=== PATIENT | female | born 1955 | race Caucasian/White ===

== ENCOUNTER 2018-03-07 00:47 | Emergency (ER) | payer OTHER ==
[~2018-03-07] VITALS: Ht 167.6 cm; Wt 95.3 kg
[~2018-03-07 00:47] MED LIST: ATOR10TA PO; AZIL1TAB PO; AZIL1TAB2 PO; CIPR500T86 PO; GABA300C10 PO; GLIM2TAB2 PO; INSU100I13 SQ; METF500T27 PO; MORP15TA3 PO; MULT-632 PO; NAPR-636 PO; NPH,100V5 SQ; SERT50TA PO; TRAM50TA PO
[2018-03-07 00:58] VITALS: BP 124/51
--- NOTE | 2018-03-07 01:05 | ER.PDOC ---
General Chief Complaint: Trauma Stated Complaint: FALL/ETOH Time seen by MD: 01:02 Source: patient, EMS Exam Limitations: clinical condition History of Present Illness Initial Comments Fell and hit head and left knee. Intoxicated with alcohol. Patient told me she drank only 6 beers. Occurred: just prior to arrival Where: home Severity: moderate Injuries/Pain Location: head Context: Tripped Loss of Consciousness: No Loss of Consciousness Associated Symptoms: denies symptoms Allergies: Coded Allergies: codeine (Verified Allergy, Severe, Rash,Itching, Skin Bubbles up and peals off, 07/09/16) MEDS Reported Medications Naproxen (NAPROXEN) 500 Mg Tablet, 0.5 TAB PO BID, #60 TAB 1 Refill 07/10/16 Azilsartan Med/Chlorthalidone (EDARBYCLOR 40-25 MG TABLET) 1 Each Tablet, 1 EACH PO DAILY, TABLET 07/10/16 Gabapentin (GABAPENTIN) 300 Mg Capsule, 1 CAP PO TID, #90 CAP 5 Refills 07/10/16 Morphine Sulfate (MORPHINE SULFATE ER) 15 Mg Tablet.er, 1 TAB PO BID, #60 TAB 07/09/16 Glimepiride (GLIMEPIRIDE) 2 Mg Tablet, 1 TAB PO BID, #30 TAB 5 Refills 02/19/16 Azilsartan Med/Chlorthalidone (EDARBYCLOR 40-12.5 MG TABLET) 1 Each Tablet, 1 EACH PO DAILY, TABLET 02/19/16 Sertraline Hcl (ZOLOFT) 50 Mg Tablet, 1 TAB PO DAILY, #30 TAB 2 Refills 12/17/15 Multivitamin (Multi Vitamin Daily) 1 Each Tablet, 1 EACH PO DAILY, TABLET 12/17/15 Insulin Glargine,Hum.rec.anlog (LANTUS SOLOSTAR) 100 Unit/1 Ml Insuln.pen, 25 UNIT SQ ACB 12/16/15 Past Medical History Medical History: diabetes, high cholesterol, hypertension, other Surgical History: stent, other LMP (females 10-50): postmenopause Social History Smoking: cigarettes, less than 1 pack/day Alcohol Use: occassionally Drug Use: none Review of Systems Constitutional: no symptoms reported Eyes: no symptoms reported Respiratory: no symptoms reported Cardiovascular: no symptoms reported Gastrointestinal: no symptoms reported Musculoskeletal: see HPI All Other Systems: Reviewed and Negative Physical Exam General Appearance: No Apparent Distress, WD/WN, Other (intoxicated with alcohol) Head: No Evidence of Injury Eyes: bilateral eye normal inspection Neck: Non-Tender, Normal Alignment, Nexus criteria neg, Normal Inspection Cardiovascular/Respiratory: Regular Rate, Rhythm, No M/R/G, Normal Peripheral Pulses, No JVD, Normal Breath Sounds, No Respiratory Distress Gastrointestinal: Normal Bowel Sounds, No Organomegaly, No Pulsatile Mass, Non Tender, Soft Back: Normal Inspection, No CVA Tenderness, No Vertebral Tenderness Extremities: Pain With Movement (left knee and swelling left foot) 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 Brice Coma Score Best Eye Response: (4) Open Spontaneously Best Verbal Response: (5) Oriented Best Motor Response: (6) Obeys Commands EKG/XRAY/CT/US XRAY Comments: Normal left knee and foot CT Comments: Normal CT head Departure Time of Disposition: 02:05 Disposition: 01 HOME, SELF-CARE Impression: Primary Impression: Contusion of head Qualified Codes: S00.93XA - Contusion of unspecified part of head, initial encounter Additional Impressions: Contusion, knee Qualified Codes: S80.02XA - Contusion of left knee, initial encounter Contusion, foot Qualified Codes: S90.32XA - Contusion of left foot, initial encounter Alcohol abuse Condition: Stable Referrals: MARIANA HANNA MD (PCP) PRIMARY CARE PROVIDER Additional Instructions: Ibuprofen F/U with your PCP in 2-3 days F/U with substance abuse program Duration or Time Spent with Pa: 60 mins JAYLEN MIJARES MD Mar 07, 2018 01:05
--- NOTE | 2018-03-07 01:17 | NUR ---
RAD PT TO RAD WITH JESSICA FOR CT, XRAY AT THIS TIME.
--- NOTE | 2018-03-07 01:43 | NUR ---
ROOM PT BACK TO ROOM AT THIS TIME.
[2018-03-07 01:46] VITALS: BP 145/79
--- NOTE | 2018-03-07 01:47 | NUR ---
BLANKET PT PROVIDED WARM BLANKET AT THIS TIME. PT RESTING ON LEFT LATERAL SIDE. PT STATES NO OTHER NEEDS OR CONCERNS AT THIS TIME.
--- NOTE | 2018-03-07 01:52 | DIREP ---
PROCEDURE:XRAY FOOT MIN 3 VWS-LT COMPARISON:None. INDICATIONS:Pain from falling FINDINGS: BONES:Normal. JOINTS:Normal. SOFT TISSUES:Normal, except for dorsal soft tissue swelling. OTHER:No additional findings. CONCLUSION:No fracture or subluxation. Dictated by: Carrington Rodriguez M.D. on 03/07/2018 at 01:50 AM
--- NOTE | 2018-03-07 01:53 | DIREP ---
PROCEDURE:XRAY KNEE 2 VWS-LT COMPARISON:None. INDICATIONS:Pain from falling FINDINGS: BONES:Normal. JOINTS:Normal. SOFT TISSUES:Normal. OTHER:No additional findings. CONCLUSION:Normal examination. Dictated by: Carrington Rodriguez M.D. on 03/07/2018 at 01:51 AM
--- NOTE | 2018-03-07 01:55 | DIREP ---
PROCEDURE:CT HEAD OR BRAIN W/O CONTRAST COMPARISON:[facility], CT, CT HEAD BRAIN W/O CONTRAST, 11/10/2015, 06:54 PM. INDICATIONS:Pain from falling TECHNIQUE:CT images were created without intravenous contrast. FINDINGS: VENTRICLES:The ventricles are normal in size and configuration. CEREBRUM:Normal cerebral morphology with appropriate mukherjee white matter differentiation, except for remote left frontal periventricular infarct/gliosis. CEREBELLUM:Negative. BRAINSTEM:Negative. BASAL CISTERNS:Negative. HEMORRHAGE:No MASS LESION:No ACUTE INFARCT:No SKULL:Normal, except for left frontal bob hole. SINUSES:Normal. OTHER:None. CONCLUSION:Chronic/postsurgical changes. Otherwise, negative head CT. No change. Dictated by: Carrington Rodriguez M.D. on 03/07/2018 at 01:52 AM
[2018-03-07 02:53] VITALS: BP 145/79
== END 2018-03-07 02:17 | disposition home or self-care (01) ==
LOC: EDBD 00:47 → ER 00:47
DX: S00.93XA Contusion of unspecified part of head, initial encounter (principal); S80.02XA Contusion of left knee, initial encounter; S90.32XA Contusion of left foot, initial encounter; F10.129 Alcohol abuse with intoxication, unspecified; E11.9 Type 2 diabetes mellitus without complications; E78.00 Pure hypercholesterolemia, unspecified; I10 Essential (primary) hypertension; F17.210 Nicotine dependence, cigarettes, uncomplicated; Z79.4 Long term (current) use of insulin; Z79.891 Long term (current) use of opiate analgesic; Z79.899 Other long term (current) drug therapy; Z88.5 Allergy status to narcotic agent; W01.0XXA Fall on same level from slipping, tripping and stumbling without subsequent striking against object, initial encounter; Y93.01 Activity, walking, marching and hiking; Y92.098 Other place in other non-institutional residence as the place of occurrence of the external cause; Y99.8 Other external cause status
CPT/HCPCS: 70450; 99285; 73560-LT; 73630-LT

== ENCOUNTER → 2018-12-08 | Outpatient (CLI) | payer OTHER ==
[2018-12-08 12:21] LABS: BASOPHIL % 0.6 % (0.0-0.2); EOSINOPHIL # 0.2 10^3/uL (0.0-0.2); EOSINOPHIL % 2.6 % (0.0-5.0); HEMOGLOBIN 12.7 g/dL (12.0-15.0); LYMPHOCYTES # 1.4 10^3/uL (1.0-4.8); LYMPHOCYTES % 20.8 % (24.0-44.0); MEAN CELL HGB 31.6 pg (26-34); MEAN CELL HGB CONCENTRATION 33.5 g/dL (33-37); MEAN CORP VOLUME 94.3 fL (78-100); MEAN PLATELET VOLUME 8.7 fL (7.8-11.0); MONOCYTES # 0.6 10^3/uL (0.3-0.8); MONOCYTES % 8.9 % (5.0-12.0); NEUTROPHIL # 4.4 10^3/uL (1.8-7.7); NEUTROPHILS % 66.9 % (41.0-85.0); RED CELL DISTRIBUTION WIDTH 13.8 % (11.5-14.5); WHITE BLOOD CELL 6.6 10^3/uL (4.5-11.0)
[2018-12-08 12:37] LABS: BILIRUBIN,URINE NEGATIVE (NEGATIVE)
[2018-12-08 12:45] LABS: CALCIUM 9.2 mg/dL (8.4-10.5); CARBON DIOXIDE 25.2 mmol/L (20.0-32)
--- NOTE | 2018-12-08 12:54 | PCM.EKG ---
[facility] Test Date: 2018-12-08 Test Time: 12:38:20 Pat Name: RICKIE AMAYA Department: Room: Gender: F Strategic Marketing Specialist: MARYLOU : 1955 Requested By: MARIANA HANNA Order Number: [id number] Reading MD: Bk Almaguer Measurements Intervals Mcgill Rate: 62 P: 63 KS: 190 QRS: 70 QRSD: 78 T: 61 QT: 418 QTc: 424 Interpretive Statements Normal sinus rhythm Normal ECG No previous ECG available for comparison Electronically Signed On 12-09-2018 10:02:32 CDT by Bk Almaguer Please click the below link to view image of tracing.
[2018-12-08 12:58] LABS: APPEARANCE,URINE SLIGHTLY CLOUDY (CLEAR); UA COLOR YELLOW (YELLOW)
== END | disposition home or self-care (01) ==
LOC: LAB 11:53
PROVIDERS: ATTEND Internal Medicine
DX: M54.5 Low back pain (principal); E87.1 Hypo-osmolality and hyponatremia; E11.42 Type 2 diabetes mellitus with diabetic polyneuropathy; I10 Essential (primary) hypertension; J44.9 Chronic obstructive pulmonary disease, unspecified; Z79.899 Other long term (current) drug therapy; I35.0 Nonrheumatic aortic (valve) stenosis
CPT/HCPCS: 36415; 80053; 80061; 83036; 85025; 85651; 86140; 87086; 93005

== ENCOUNTER → 2019-01-05 | Outpatient (CLI) | payer OTHER ==
[~2019-01-05] MED LIST changes: +MORP-23 PO; -MORP15TA3 PO
[2019-01-05 13:22] LABS: BILIRUBIN,URINE NEGATIVE (NEGATIVE); UROBILINOGEN,URINE NORMAL (NEGATIVE)
[2019-01-05 13:29] LABS: APPEARANCE,URINE CLEAR (CLEAR); UA COLOR YELLOW (YELLOW)
== END | disposition home or self-care (01) ==
LOC: LAB 12:54
PROVIDERS: ATTEND Internal Medicine
DX: I11.0 Hypertensive heart disease with heart failure (principal); I50.9 Heart failure, unspecified; M19.90 Unspecified osteoarthritis, unspecified site; M32.9 Systemic lupus erythematosus, unspecified; R80.1 Persistent proteinuria, unspecified
CPT/HCPCS: 81000; 82043; 82570; 87086

== ENCOUNTER → 2019-03-05 | Outpatient (CLI) | payer OTHER ==
[~2019-03-05] MED LIST changes: -GLIM2TAB2 PO; +GLIM2TAB3 PO
[2019-03-05 14:05] LABS: CALCIUM 9.4 mg/dL (8.4-10.5); CARBON DIOXIDE 28.6 mmol/L (20.0-32)
== END | disposition home or self-care (01) ==
LOC: LAB 13:34
PROVIDERS: ATTEND Internal Medicine Cardiovascular Disease
DX: I70.213 Atherosclerosis of native arteries of extremities with intermittent claudication, bilateral legs (principal)
CPT/HCPCS: 36415; 80048

== ENCOUNTER 2020-01-31 08:23 | Inpatient (IN) | payer OTHER, SELFPAY ==
[2020-01-31] VITALS (37 sets, daily range): BP systolic 71–154; BP diastolic 25–86
[~2020-01-31] VITALS: Ht 167.6 cm; Wt 105.2 kg
[~2020-01-31 08:23] MED LIST changes: -GLIM2TAB3 PO; +GLIM2TAB7 PO
--- NOTE | 2020-01-31 08:46 | PCM.EKG ---
[facility] Test Date: 2020-01-31 Test Time: 08:42:29 Pat Name: RICKIE AMAYA Department: Room: Gender: F Signal Maintainer Helper: DENIA : 1955 Requested By: LINUS POSADA Order Number: [id number] Reading MD: Linus Posada Measurements Intervals [place] Rate: 55 P: 70 MI: 241 QRS: 69 QRSD: 85 T: 73 QT: 506 QTc: 484 Interpretive Statements Sinus rhythm Prolonged MI interval Probable left atrial enlargement Probable left ventricular hypertrophy Compared to ECG 12/08/2018 12:38:20 First degree AV block now present minimal st depression v3 to v6 1mm or less previous ekg shows 0.5mm or less from 12-09-18 at 1002 Electronically Signed On 01-31-2020 8:55:49 CDT by Linus Posada Please click the below link to view image of tracing.
--- NOTE | 2020-01-31 08:48 | ER.PDOC ---
General Chief Complaint: Requesting Medical Care Stated Complaint: DYSPNEA Time seen by MD: 08:30 Source: patient History of Present Illness Initial Comments one day of cough and dyspnea with hx of copd, wheezing at home no chest pain. no swelling in legs or calf pain no hx of dvt or pe, no cad per patient. no fever or runny nose pt not on oxygen at home has no pulmonary doctor. ems notified gave solumedrol and duo neb, patient still higinio. Severity: moderate Activities at Onset: none Prior Episodes/Possible Cause: frequent episodes Modifying Factors: improves with albuterol inhaler, improves with albuterol nebulizer Allergies: Coded Allergies: codeine (Verified Allergy, Severe, Rash,Itching, Skin Bubbles up and peals off, 07/09/16) Home Meds Reported Medications Nifedipine (NIFEDIPINE ER) 60 Mg Tablet.er, 90 MG PO DAILY24 01/31/20 Potassium Chloride (Potassium Chloride) 20 Meq Tablet.er, 10 MEQ PO DAILY24 01/31/20 Insulin Aspart (Insulin Aspart) 100 Unit/Ml Vial, 0 SQ ACHS for PER SLIDING SCALE for 30 Days, #30 01/31/20 Gabapentin (GABAPENTIN) 100 Mg Capsule, 1 CAP PO TID, #90 CAP 2 Refills 01/31/20 Isosorb Dinit/Hydralazine Hcl (BIDIL TABLET) 1 Each Tablet, 1 EACH PO DAILY24, TAB 01/31/20 Budesonide/Formoterol Fumarate (SYMBICORT 160-4.5 MCG INHALER) 10.2 Gm Hfa.aer.ad, 2 PUFF IH BID, #10.6 GRAM 3 Refills 01/31/20 Tizanidine Hcl (ZANAFLEX) 2 Mg Capsule, 1 CAP PO HS for 30 Days, #30 CAP 0 Refills 01/31/20 Clopidogrel Bisulfate (CLOPIDOGREL) 75 Mg Tablet, 1 TAB PO DAILY, #90 TAB 1 Refill 01/31/20 Lisinopril (LISINOPRIL) 2.5 Mg Tablet, 1 TAB PO DAILY, #30 TAB 5 Refills 01/31/20 Atorvastatin 40MG (LIPITOR 40MG) 40 Mg Tablet, 1 TAB PO HS, #90 TAB 1 Refill 01/31/20 Amitriptyline Hcl (AMITRIPTYLINE HCL) 50 Mg Tablet, 1 TAB PO HS, #30 TAB 1 Refill 01/31/20 Gabapentin (GABAPENTIN) 300 Mg Capsule, 1 CAP PO TID, #90 CAP 5 Refills 07/10/16 Morphine Sulfate (MORPHINE SULFATE ER) 15 Mg Tablet.er, 1 TAB PO BID, #60 TAB 07/09/16 Sertraline Hcl (ZOLOFT) 50 Mg Tablet, 1 TAB PO DAILY, #30 TAB 2 Refills 12/17/15 Multivitamin (Multi Vitamin Daily) 1 Each Tablet, 1 EACH PO DAILY, TABLET 12/17/15 Insulin Glargine,Hum.rec.anlog (LANTUS SOLOSTAR) 100 Unit/1 Ml Insuln.pen, 25 UNIT SQ ACB 12/16/15 Discontinued Reported Medications Naproxen (NAPROXEN) 500 Mg Tablet, 0.5 TAB PO BID, #60 TAB 1 Refill 07/10/16 Azilsartan Med/Chlorthalidone (EDARBYCLOR 40-25 MG TABLET) 1 Each Tablet, 1 EACH PO DAILY, TABLET 07/10/16 Glimepiride (GLIMEPIRIDE) 2 Mg Tablet, 1 TAB PO BID, #30 TAB 5 Refills 02/19/16 Azilsartan Med/Chlorthalidone (EDARBYCLOR 40-12.5 MG TABLET) 1 Each Tablet, 1 EACH PO DAILY, TABLET 02/19/16 Past Medical History Medical History: COPD, diabetes ( ) Surgical History: stent, other Social History Drug Use: none Review of Systems Constitutional: denies chills, denies fever EENTM: denies ear discharge, denies nose congestion Respiratory: cough, shortness of breath Cardiovascular: denies chest pain, denies palpitations, denies syncope Gastrointestinal: denies diarrhea, denies vomiting Genitourinary: denies pain Musculoskeletal: denies back pain Skin: denies rash Psychiatric/Neurological: denies headache Physical Exam General Appearance: No Apparent Distress, WD/WN HEENT: PERRL/EOMI, Normal ENT Inspection Neck: Non-Tender, Full Range of Motion Respiratory: chest non-tender, respiratory distress, wheezing Cardiovascular: Normal Peripheral Pulses, Regular Rate, Rhythm Gastrointestinal: Non Tender Extremities: Normal Range of Motion, Normal Inspection, No Pedal Edema 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 (01/31/20 08:41) Blood Culture (01/31/20 08:41) Sputum Culture & Gram Stain (01/31/20 08:41) Ekg-Routine (01/31/20 08:41) Xr Chest 1v (01/31/20 08:41) Rt O2 Per Hour (01/31/20 08:41) Creatine Kinase (01/31/20 08:41) Creatine Kinase Mb (01/31/20 08:41) Troponin I (01/31/20 08:41) Helicobacter Pylori (01/31/20 08:41) D-Dimer (01/31/20 08:41) Albuterol Sulfate (Ventolin Hfa) (01/31/20 09:00) Influenza A&B (01/31/20 08:41) Novel Coronavirus 2019(Dshs) (01/31/20 08:41) Acetone,Serum (Ml) (01/31/20 08:48) Lactic Acid(Ml) (01/31/20 08:48) 0.9 % Sodium Chloride (Ns 1000ml) (01/31/20 09:00) Insulin Regular, Human (Humulin R) (01/31/20 09:00) Aspirin (Aspirin) (01/31/20 08:56) Nitroglycerin (Nitro-Bid) (01/31/20 09:36) Enoxaparin Sodium (Lovenox) (01/31/20 21:00) Enoxaparin Sodium (Lovenox) (01/31/20 09:51) Admit Orders (01/31/20 10:06) Azithromycin (Zithromax) (01/31/20 10:30) Furosemide (Lasix) (01/31/20 10:06) 0.9 % Sodium Chloride (Ns 250ml) (01/31/20 10:27) Vital Signs Date Time Temp Pulse Resp B/P (MAP) Pulse Ox O2 Delivery O2 Flow Rate FiO2 01/31/20 10:40 58 20 145/58 (87) 90 Comfort Flow 01/31/20 10:00 98 20 91 Comfort Best 30.00 55 01/31/20 09:28 58 21 87 01/31/20 09:25 21 87 01/31/20 09:23 58 24 125/53 (77) 87 Nasal Canula 4.00 01/31/20 08:36 98.3 60 26 137/51 (79) 86 Nasal Canula 4.00 01/31/20 08:36 98.3 60 26 01/31/20 08:36 98.3 60 26 86 Administered Medications Medications (Trade) Dose Ordered Sig/Presley Route PRN Reason Start Time Stop Time Status Last Admin Dose Admin Albuterol Sulfate (Ventolin Hfa) 2 inh OT ONCE IH 01/31/20 09:00 01/31/20 12:21 DC 01/31/20 09:21 2 INH Aspirin (Aspirin) 325 mg STAT STAT PO 01/31/20 08:56 01/31/20 12:19 DC 01/31/20 09:20 325 MG Azithromycin 500 mg/Sodium Chloride 250 ml @ 175 mls/hr STAT ONCE IV 01/31/20 10:30 01/31/20 12:19 DC 01/31/20 10:40 175 MLS/HR Furosemide (Lasix) 40 mg STAT STAT IV 01/31/20 10:06 01/31/20 12:19 DC 01/31/20 12:30 40 MG Insulin Human Regular (Humulin R) 10 unit OT ONCE IV 01/31/20 09:00 01/31/20 09:01 DC 01/31/20 09:20 10 UNIT Nitroglycerin (Nitro-Bid) 1 gm STAT STAT TD 01/31/20 09:36 01/31/20 12:19 DC 01/31/20 09:56 1 GM Sodium Chloride 2,994 ml @ 1,497 mls/hr OT IV 01/31/20 09:00 01/31/20 15:42 DC 01/31/20 09:21 1,497 MLS/HR Laboratory Tests Test 01/31/20 08:41 01/31/20 09:06 01/31/20 09:21 01/31/20 09:46 Blood Gas Sample Site RB Blood pH 7.422 (7.350-7.450) Blood Gas PCO2 26.6 mmHg (35.0-45.0) L Blood Gas PO2 69.8 mmHg (80.0-100.0) L Blood Gas HCO3 16.9 mmol/L (22.0-26.0) L Blood Gas Base Excess -5.9 mmol/L (-2.0-2.0) L Bk Test N/A Arterial Blood Oxygen Saturation 93.6 % (94.0-97.00) L Deoxyhemoglobin 6.2 % (0.0-5.0) H Carboxyhemoglobin 2.4 % (0.0-3.9) Methemoglobin 0.1 % (0.00-5.0) Total Hemoglobin 13.5 % (12.0-17.8) Total Oxygen Concentration 17.4 % (13.5-17.5) Blood Gas Temperature 37 FiO2 40 % (20-101) Total Carbon Dioxide 17.8 mmol/L (23-27) L White Blood Count 14.8 10^3/uL (4.5-11.0) H Red Blood Count 4.31 10^6/uL (4.00-5.20) Hemoglobin 13.2 g/dL (12.0-15.0) Hematocrit 39.2 % (36.0-46.0) Mean Corpuscular Volume 91.0 fL (78-100) Mean Corpuscular Hemoglobin 30.6 pg (26-34) Mean Corpuscular Hemoglobin Concent 33.7 g/dL (33-36.5) Red Cell Distribution Width 14.1 % (11.5-14.5) Platelet Count 286 10^3/uL (150-400) Mean Platelet Volume 10.3 fL (7.8-11.0) Neutrophils (%) (Auto) 88.5 % (41.0-85.0) H Lymphocytes (%) (Auto) 6.4 % (24.0-44.0) *L Monocytes (%) (Auto) 4.5 % (5.0-12.0) L Neutrophils # (Auto) 13.1 10^3/uL (1.8-7.7) H Lymphocytes # (Auto) 0.95 10^3/uL1 (1.0-4.8) L Monocytes # (Auto) 0.7 10^3/uL (0.3-0.8) Absolute Immature Granulocyte (auto 0.05 10^3 u/L (0-2) Absolute Eosinophils (auto) 0.0 10^3/uL (0.0-0.2) Immature Granulocytes % 0.30 % (0.00-0.50) Eosinophils % 0.1 % (0.0-5.0) Basophils % 0.2 % (0.0-0.2) Basophils # 0.0 10^3/uL (0.0-0.1) Prothrombin Time 10.7 SEC (9.3-11.3) Prothrombin Time INR (Non-Therap) 1.1 Activated Partial Thromboplast Time 22.7 SEC (24.67-30.72) D-Dimer 0.45 mg/L (0.19-0.49) Sodium Level 124 mmol/L (132-145) L Potassium Level 4.0 mmol/L (3.6-5.2) Chloride Level 91.0 mmol/L (96-109) L Carbon Dioxide Level 20.3 mmol/L (20.0-32) Anion Gap 16.7 Blood Urea Nitrogen 14 mg/dL (7-18) Creatinine 1.20 mg/dL (0.59-1.40) Estimated GFR () 54.9 (>/=60) Est GFR (CKD-EPI)(Non-Afr Vincentian) 45.4 (>/=60) BUN/Creatinine Ratio 11.0 Glucose Level 511 mg/dL (70-110) *H Lactic Acid Level 2.0 mmol/L (0.5-1.9) H Calcium Level 9.6 mg/dL (8.4-10.5) Total Bilirubin 0.9 mg/dL (0.2-1.0) Aspartate Amino Transferase (AST) 20 U/L (0-35) Alanine Aminotransferase (ALT) 31 U/L (12-78) Alkaline Phosphatase 106 U/L (50-136) Total Creatine Kinase 121 U/L (26-192) Creatine Kinase MB 3.0 ng/mL (0.5-3.6) Troponin I 0.16 ng/mL (0.00-0.05) H Pro-B-Type Natriuretic Peptide 6027 pg/mL (0-125) H Total Protein 7.8 g/dL (6.4-8.2) Albumin 3.3 g/dL (3.4-5.0) L Globulin 4.5 Albumin/Globulin Ratio 0.733 Acetone, Semi-Quantitative NEGATIVE Helicobacter pylori Screen NEGATIVE (NEGATIVE) Influenza Type A Antigen NEGATIVE (NEG) Influenza B Immunofluorescence NEGATIVE (NEG) Differential Total Cells Counted 100 #CELLS Segmented Neutrophils 88 % (31-76) H Band Neutrophils 3 % (2-6) Lymphocytes 8 % (25-36) L Monocytes 1 % (3-9) L Differential Comment NORMAL Platelet Estimate ADEQUATE Platelet Morphology NORMAL Blood Morphology Comment NORMAL MORPHOLOGY Progress Progress patient has minimal st depression lateral leads of v3 to v6 of 1mm or less previous ekg showed 0.5mm or less in similar leads. nitro held secondary to initial bp 109 systolic and no chest pain, ekg is similar to previous possibly not acute no cp. solumedrol give by ems, fluid bolus initially given secondary to hyperglycemia, fluids decreased when chest xray returned possible chf. when patient pressure improved from fluids she was given nitro ointment even though she had no chest discomfort, nitro given secondary to the abnormal ekg. toponin returned mild elevation so patient given lovenox. discussed with dr fernando at [facility] as patient does not wish transfer. discussed case with dr london for admi ssion at [place], dr fernando wanted lasix iv given in er and dr london wanted iv azithromycin given in er. EKG/XRAY/CT/US EKG: NSR ER DEPART Departure Time of Disposition: 10:06 Disposition: 51 DISCH TO HOSPICE MED FACILI Impression: Primary Impression: Chest pain Condition: Improved Referrals: MARIANA HANNA MD (PCP) PRIMARY CARE PROVIDER Duration or Time Spent with Pa: PROSPER REAGAN MD Jan 31, 2020 08:48
[2020-01-31] MEDS ORDERED: HUMULIN R ONE (08:51)
[2020-01-31] MEDS ORDERED: NS 1000ML 1,000 ML ONE ×2 (08:51→21:14)
[2020-01-31] MEDS ORDERED: ASPIRIN PO STA (08:56)
[2020-01-31] MEDS ORDERED: NS IV SCH (09:00)
[2020-01-31] MEDS ORDERED: VENTOLIN HFA IH ONE (09:00)
[2020-01-31] MEDS ORDERED: HUMULIN R IV ONE (09:00)
[2020-01-31 09:10] LABS: ABG PCO2 26.6 mmHg (35.0-45.0); ABG PH 7.422 (7.350-7.450); BE(B) -5.9 mmol/L (-2.0-2.0); HCO3act 16.9 mmol/L (22.0-26.0); pO2 69.8 mmHg (80.0-100.0)
--- NOTE | 2020-01-31 09:25 | NUR ---
COVID TEST PT COVID TESTED THROUGH THE STATE PER DR. WOLF ORDERS. NASOPHARANGYL SWAB COLLECTED AND TAKEN TO THE LAB. VERBAL EDUCATION GIVEN TO PT REGARDING TESTING. PT VERBALIZES UNDERSTANDING, NO FURHTER QUESTIONS AT THIS TIME.
--- NOTE | 2020-01-31 09:26 | DIREP ---
PROCEDURE:CHEST 1 VIEW COMPARISON:[facility], CR, XRAY CHEST 2 VWS, 05/23/2017, 01:43 PM. INDICATIONS:cough and dyspnea FINDINGS: LUNGS/PLEURA:Interstitial prominent both lungs. Tiny amount of fluid in the minor fissure. No consolidation VASCULATURE:Prominent CARDIAC:Interval cardiomegaly MEDIASTINUM:Normal. No visible mass or adenopathy. BONES:Normal. No fracture or visible bony lesion. OTHER:Negative. CONCLUSION:Slight interval cardiomegaly with vascular prominence and scant fluid in the minor fissure could represent incipient CHF. Dictated by: Theresa Patricio MD on 01/31/2020 at 09:14 AM
[2020-01-31] MEDS ORDERED: NITRO-BID TD STA (09:36)
[2020-01-31 09:45] LABS: BASOPHIL % 0.2 % (0.0-0.2); EOSINOPHIL % 0.1 % (0.0-5.0); LYMPHOCYTES # 0.95 10^3/uL1 (1.0-4.8); LYMPHOCYTES % 6.4 % (24.0-44.0); MEAN CORP HGB 30.6 pg (26-34); MONOCYTES # 0.7 10^3/uL (0.3-0.8); MONOCYTES % 4.5 % (5.0-12.0); NEUTROPHIL # 13.1 10^3/uL (1.8-7.7); NEUTROPHILS % 88.5 % (41.0-85.0); PLATELET COUNT 286 10^3/uL (150-400); RED CELL DISTRIBUTION WIDTH 14.1 % (11.5-14.5)
[2020-01-31] MEDS ORDERED: LOVENOX SQ ONE (09:51)
[2020-01-31 09:53] LABS: CALCIUM 9.6 mg/dL (8.4-10.5); CARBON DIOXIDE 20.3 mmol/L (20.0-32)
--- NOTE | 2020-01-31 09:55 | NUR ---
COMFORT FLOW PT PLACED ON COMFORT FLOW BY RT
--- NOTE | 2020-01-31 10:04 | NUR ---
EDDIE DOCTOR DONNIE ON THE PHONE WITH DOCTOR MORGAN AT THIS TIME.
[2020-01-31] MEDS ORDERED: LASIX IV STA (10:06)
[2020-01-31] MEDS ORDERED: NS 250ML 250 ML IV ONE (10:27)
[2020-01-31] MEDS ORDERED: ZITHROMAX 500 MG in NS 250ML 250 ML IV ONE (10:30)
--- NOTE | 2020-01-31 10:35 | NUR ---
ADMIT REQUEST ROOM REQUEST FROM ICU. JERRI RN REPORTED ROOM WOULD BE AVAILABLE IN AN HOUR AFTER THEY MOVE A PATIENT OUT OF THE NEGATIVE PRESSURE ROOM, AND HAVE IT TERMINALY CLEANED.
[2020-01-31] MEDS ORDERED: POTA20TA89 PO (11:03)
[2020-01-31] MEDS ORDERED: CLOP75TA PO (11:03)
[2020-01-31] MEDS ORDERED: LISI2.5T PO (11:03)
[2020-01-31] MEDS ORDERED: INSU100V40 SQ (11:03)
[2020-01-31] MEDS ORDERED: BUDE10.2 IH (11:03)
[2020-01-31] MEDS ORDERED: ISOS1TAB2 PO (11:03)
[2020-01-31] MEDS ORDERED: GABA100C7 PO (11:03)
[2020-01-31] MEDS ORDERED: AMIT50TA PO (11:03)
[2020-01-31] MEDS ORDERED: ATOR40TA PO (11:03)
[2020-01-31] MEDS ORDERED: TIZA2CAP2 PO (11:03)
[2020-01-31] MEDS ORDERED: NIFE60TA15 PO (11:03)
[2020-01-31 11:55] LABS: BAND NEUTROPHILS 3 % (2-6); DIFFERENTIAL COMMENT NORMAL; LYMPHOCYTE 8 % (25-36); MONOCYTE 1 % (3-9); SEGMENTED NEUTROPHILS 88 % (31-76)
[2020-01-31] MEDS ORDERED: LASIX ONE ×2 (12:21→13:21)
--- NOTE | 2020-01-31 12:40 | NUR ---
ADMIT PT ADMITTED TO ICU, REPORT GIVEN TO JERRI STEINER. PT TRANSFERRED ON NC, PUT BACK ON COMFORT FLOW ONCE ARRIVING TO UNIT. PT ALERT, ORIENTED, STABLE. NS@100ML/HR INFUSING TO IV LEFT HAND.
--- NOTE | 2020-01-31 14:15 | NUR ---
HEPARIN HEPARIN WAS STARTED AT THIS TIME.
[2020-01-31] MEDS ORDERED: HEPARIN-D5W 20,000 UNIT/500 ML 500 ML IV ONE (14:16)
[2020-01-31] MEDS ORDERED: HEPARIN ONE (14:17)
--- NOTE | 2020-01-31 14:30 | NUR ---
MEDICATION PATIENT REQUESTING ZOLOFT. SHE TAKES THIS AT HOME. NOTIFIED DR NAYLOR. NO ORDERS RECEIVED. SHE DOES NOT WANT TO CONTINUE THIS UNTIL HER BREATHING IS BETTER
[2020-01-31] MEDS ORDERED: HEPARIN IV ONE (15:00)
--- NOTE | 2020-01-31 15:25 | NUR ---
UPDATE DR NAYLOR GAVE VERBAL ORDERS TO DC LOVENOX. DO NOT CONTINUE NS. FLUID RESTRICTION 1500ML PER DAY. 1800 ADA DIET
[2020-01-31] MEDS: HEPARIN-D5W 20,000 UNIT/500 ML 500 ML IV SCH (15:32)
[2020-01-31] MEDS ORDERED: MORPHINE SULFATE IV PRN (16:00)
[2020-01-31] MEDS ORDERED: ATROVENT IH PRN (16:00)
[2020-01-31] MEDS ORDERED: TYLENOL PO PRN (16:00)
[2020-01-31] MEDS ORDERED: VENTOLIN IH PRN (16:00)
[2020-01-31] MEDS ORDERED: ATROVENT IH SCH (16:00)
[2020-01-31] MEDS ORDERED: ZOFRAN IV PRN (16:00)
[2020-01-31] MEDS: COMBIVENT RESPIMAT 20-100 MCG IH SCH ×2 (17:00→21:00)
[2020-01-31] MEDS ORDERED: VENTOLIN IH SCH (17:00)
[2020-01-31] MEDS ORDERED: COMBIVENT RESPIMAT 20-100 MCG IH PRN (17:00)
--- NOTE | 2020-01-31 17:17 | PCM.HP ---
HISTORY & PHYSICAL HISTORY & PHYSICAL DATE OF ADMISSION: 01/31/20 TIME: 2:30pm CHIEF COMPLAINT: SOB, cough, and wheezing HISTORY OF PRESENT ILLNESS: Ms Haque is a 64yo WF who presents to the [facility] ED complaining of worsening SOB, cough (productive of mostly clear sputum), and wheezing since last evening. Patient denies having any associated fever or chills, and reports no chest pain, palpitations, dizziness, abdominal pain, nausea, vomiting, diarrhea, or syncopal episodes. EMS was called earlier this morning and found patient to be in severe respiratory distress with an O2 sat in the low 80's on Room Air. Currently, patient can only speak a few words at a time before getting extremely dyspneic. She denies having any sick contacts. PAST MEDICAL HISTORY: IDDM-2, HLD, Depression with Anxiety, HTN, Peripheral Neuropathy, Chronic Low Back Pain, COPD, PAD, Arthritis PAST SURGICAL HISTORY: BL LE stents, Tubal Ligation, Brain Surgery SOCIAL HISTORY: Pt has smoked 1ppd for over 30 yrs. She says she quit yesterday. Patient drinks "very rarely" and does not use recreational drugs. FAMILY HISTORY: Mother at age 76 with Breast Cancer and CAD. Father at age 82 with Hypoglycemic Episodes. ALLERGIES: Codeine HOME MEDICATIONS: See Home Med Rec REVIEW OF SYSTEMS: See HPI above. All other ROS negative including constitutional, eyes, ears, nose, throat, respiratory, cardiovascular, gastrointestinal, genitourinary, musculoskeletal, skin, neurological, psychiatric, and lymphatic. PHYSICAL EXAMINATION: VITAL SIGNS: T 98.3, HR 52, RR 22, BP 135/66, O2 sat 91% on Comfort Best GENERAL: Resting comfortably in NAD. She is acutely ill-appearing. No family or friends present at bedside. HEENT: NC/AT. PERRLA. EOMI. MMM. Neck is supple. LUNGS: BL diffuse expiratory wheezes with faint crackles noted. Pt is tachypneic with moderate usage of her accessory muscles of respiration. HEART: Normal S1S2. +2/6 systolic murmur LSB. ABDOMEN: Soft. ND. NTTP. No rebound or guarding. Normal BS throughout. Obese. EXTREMITIES: 1+ pitting edema BL. Weak, but moving all 4 extremities equally and completely off the bed. SKIN: No obvious rashes or cellulitis. NEUROLOGIC: AAOx3. Sensation appears to be intact throughout. Gait was not assessed at this time. LABORATORY DATA: Reviewed and significant for WBC 14.8, D-dimer 0.45, Na 124, Cl 91, Gluc 511, Lact 2.0, TPN 0.16, proBNP 6027, Influenza A/B neg, AB.42 / 26.6 / 69.8 IMAGING STUDIES: 1) CXR: Slight interval cardiomegaly with vascular prominence and scant fluid in the minor fissure could represent incipient CHF. ASSESSMENT / PLAN: 1) Acute Hypoxemic Respiratory Failure: Improving on Comfort Best. Continue supportive care and monitor closely. COVID-19 has been checked and is pending. 2) Acute COPD exacerbation with Active Tobacco Abuse: Continue Br Tx's, O2 PRN, Solumedrol, Mucinex, and Symbicort. Pt has been counseled and encouraged to quit smoking. 3) Possible Early Sepsis: Will start Rocephin and Azithromycin empirically for now until all Cultures result. Will check a CT chest to further evaluate for possible PNA vs CHF. No additional fluids can be given due to #4 below. 4) Acute CHF exacerbation: (New Onset) Echo has been ordered and is pending. Continue Lasix and fluid restriction for now. 5) Elevated TPN: Possibly due to Sepsis vs Respiratory Failure vs NSTEMI. Patient currently denies having any chest pain. Will continue to trend TPN. Dr Cisse was contacted by the ED physician and has kindly seen the patient in consultation. Continue Heparin drip for now. 6) HypoNatremia: Likely due to volume overload. Will fluid restrict and check urine studies to be certain. 7) IDDM-2 uncontrolled: Pt is not in DKA. Continue Lantus and Insulin per Correction Scale PRN. Check HgbA1c. 8) HTN: Currently stable on home meds. 9) Chronic Low Back Pain: Continue Sx pain control PRN. 10) Obesity: Pt has been counseled and encouraged to lead a healthier lifestyle. 11) GI and DVT prophylaxis: Will continue home Protonix and start Heparin. >65min of critical care time was spent with pt at bedside today as well as in coordination of care and admission orders. SERA NAYLOR MD Jan 31, 2020 17:17
--- NOTE | 2020-01-31 17:20 | NUR ---
PATIENT OFF UNIT FOR CHEST CT SCAN WITH CONTRAST
[2020-01-31] MEDS: ROCEPHIN 1,000 MG in NS 100ML 100 ML IV SCH (17:45)
--- NOTE | 2020-01-31 19:00 | NUR ---
RECEIVED PATIENT IN COMFORT FLOW, AFEBRILE, DENIED ANY CONCERN. REPORT FROM Alvarez ACOSTA RN. ONGOING HEPARIN @ 1000 UNITS/HR. CALL LIGHT AND TABLE IN REACH. ASSUMED CARE
[2020-01-31] MEDS: HUMALOG SQ SCH ×2 (19:01→21:11)
--- NOTE | 2020-01-31 19:03 | DIREP ---
PROCEDURE:CT CHEST WITH CONTRAST COMPARISON:[facility], CR, XRAY CHEST SINGLE VW, 01/31/2020, 08:41 AM. INDICATIONS:SOB and cough TECHNIQUE:Helical sections through the chest were performed from the lung apices through the diaphragms with IV contrast. Sagittal and coronal reconstructions are obtained from source images. FINDINGS: LUNGS:There is a 2 cm diameter pleural-based/subpleural soft tissue density or dense infiltrate in the right upper lobe. There may be tiny air-filled cavity in the posterior portion of this soft tissue density. Small area of subpleural infiltrate or scarring in the inferior the lateral aspect of the left lower lobe. Small area of subpleural infiltrate or scarring in medial portion of right lower lobe. New line small areas of bilateral apical pleural thickening. PLEURA:Minimal right pleural effusion. CARDIAC:Normal. No enlargement, pericardial thickening, or significant calcification. MEDIASTINUM:Normal. No mass or adenopathy. AV:Normal. No mass or adenopathy. AORTA:Pulsation artifacts are noted. No aneurysm or dissection in the thoracic aorta. CHEST WALL:Normal. No mass or axillary adenopathy. LIMITED ABDOMEN:Normal. Limited images of the upper abdomen are unremarkable. BONES:Normal. No bony lesion or fracture. OTHER:Negative. CONCLUSION: 1. Small focal infiltrate or mass in the right upper lobe with a tiny cavitation. This is of uncertain etiology may represent unusual presentation of a small localized pneumonia infiltrate. Neoplasm cannot be totally ruled out. There also small subpleural areas of infiltrate or parenchymal scarring in each lower lobe. No typical findings for COVID 19 pneumonia on the present exam. Follow-up noncontrast CT scan of the chest in several days would be quite useful to evaluate for evolution of findings in the lungs. 2. Please see above discussion for details of other findings. Dictated by: Beau Barclay M.D. on 01/31/2020 at 06:47 PM
[2020-01-31] MEDS: BACID PO SCH (19:31)
[2020-01-31] MEDS ORDERED: SOLU-MEDROL ONE (20:23)
[2020-01-31] MEDS ORDERED: LASIX PO SCH (21:00)
[2020-01-31] MEDS ORDERED: LOVENOX SQ SCH (21:00)
[2020-01-31] MEDS: MS CONTIN PO SCH (21:00)
[2020-01-31] MEDS: SYMBICORT 160-4.5 MCG INHALER IH SCH (21:00)
[2020-01-31] MEDS: ELAVIL PO SCH (21:07)
[2020-01-31] MEDS: LIPITOR PO SCH (21:08)
[2020-01-31] MEDS: SOLU-MEDROL IV SCH (21:08)
[2020-01-31] MEDS: MUCINEX PO SCH (21:08)
--- NOTE | 2020-01-31 23:16 | CNH ---
DATE OF CONSULTATION: 01/31/2020 REASON FOR CONSULTATION: Acute decompensated heart failure. HISTORY OF PRESENT ILLNESS: This is a 64-year-old female who presented to the Emergency Room with acute hypoxic respiratory failure. The patient admits to a 1-day history of progressively worsening shortness of breath with wheezing as well as orthopnea and paroxysmal nocturnal dyspnea. She does have a history of COPD. On presentation to the Emergency Department, she was given Solu-Medrol and breathing treatment. She denies any chest pain. ProBNP was noted to be 6027 with mildly elevated troponin at 0.16. She is also noted to have significant hyponatremia as well as significant hyperglycemia with a glucose level of 511 and sodium level of 124. White blood cell count is noted to be significantly elevated at 14.8. A consultation was placed to Cardiology service for evaluation for acute decompensated heart failure. PAST MEDICAL HISTORY: Significant for 1. COPD. 2. Hypertension. 3. Peripheral arterial disease. 4. Hyperlipidemia. 5. Type 2 diabetes mellitus. 6. Peripheral neuropathy. 7. Dysthymic disorder. PAST SURGICAL HISTORY: 1. Brain surgery. 2. Tubal ligation. 3. Bilateral lower extremity peripheral interventions. ALLERGIES: She is allergic to CODEINE. MEDICATIONS: She takes at home includes 1. Nifedipine 60 mg daily. 2. Potassium chloride. 3. Insulin. 4. Gabapentin. 5. BiDil 1 tab daily. 6. Symbicort. 7. Zanaflex. 8. Plavix 75 mg daily. 9. Lisinopril 2.5 mg daily. 10. Lipitor 40 mg daily. 11. Amitriptyline. 12. Morphine sulfate. 13. Zoloft. SOCIAL HISTORY: Tobacco abuse, occasional alcohol use, denies illicit drug use. FAMILY HISTORY: Denies any family history of premature coronary artery disease or sudden cardiac . REVIEW OF SYSTEMS: As per HPI and as per previous records. All systems reviewed and negative for interval change. PHYSICAL EXAMINATION: VITAL SIGNS: Blood pressure is 109/46, respiratory rate is 26, pulse is 51, temperature 98.3, oxygen saturation is 92%. GENERAL: She is in mild distress, alert and oriented x 3. HEENT: Normocephalic, atraumatic. Extraocular muscles intact. Pupils are equally round and reactive to light and accommodation. HEART: S1, S2. No gallops, murmurs, rubs, or clicks. LUNGS: Decreased breath sounds bilaterally. ABDOMEN: Soft, obese, nontender, nondistended. EXTREMITIES: No cyanosis, no clubbing, no edema. NEUROLOGIC: No neurological deficits. Sensation is intact. IMPRESSION: 1. Acute decompensated heart failure -- unknown etiology at this time. 2. Severe hyponatremia. 3. Severe hyperglycemia. 4. Elevated white blood cell count, highly suspicious for an acute infectious process. 5. Abnormal EKG with ST depressions in the anterolateral leads suggestive of myocardial ischemia. 6. Diabetes mellitus type 2. 7. Hyperlipidemia. 8. Hypertension. 9. Acute chronic obstructive pulmonary disease exacerbation. 10. Known history of peripheral arterial disease. 11. PUI for COVID-19, coronavirus. RECOMMENDATIONS: This is a 64-year-old female who presented to the Emergency Room with acute hypoxic respiratory failure. She appears to be in acute COPD exacerbation as well as decompensated heart failure. I will go ahead and start her on Lasix 40 mg IV b.i.d. She will be placed on strict I's and O's, sodium restriction, fluid restriction to 1 liter a day and daily weights. I certainly would recommend to continue all her home cardiac medications including BiDil, lisinopril, dual antiplatelet therapy as well as statin therapy. Would recommend holding off on beta blockers at this time due to low running blood pressure. I would obtain a 2D echo to evaluate her left ventricular ejection fraction and structural integrity of her heart. I will defer management for COPD exacerbation as well as underlying active infection to the primary team. COVID-19 coronavirus test is currently pending. The patient is currently a PUI for COVID-19 coronavirus. Eventually when the patient is stable from a respiratory standpoint and after euvolemia has been attained, she will be set up for left heart catheterization to rule out obstructive CAD. This will be pursued after electrolyte imbalance have been successfully corrected by the primary team. In the interim, she will be kept on heparin drip and kept on cafeteria monitor. Further recommendations will be made based on the overall clinical course. LLOYD MORGAN D.O. DR: BENJI/anthony JOB# [id number]
[2020-02-01] VITALS (28 sets, daily range): BP systolic 117–159; BP diastolic 29–109
[2020-02-01] MEDS: COMBIVENT RESPIMAT 20-100 MCG IH SCH ×6 (01:00→18:44)
--- NOTE | 2020-02-01 02:21 | NUR ---
FACE MASK SWITCHED PATIENT FROM COMFORT FLOW TO REGULAR FACE MASK. SPO2 99-100% WILL CONTINUE TO MONITOR. MICKY RT NOTIFIED.
--- NOTE | 2020-02-01 03:30 | NUR ---
EPISTAXIS BLEEDING TO BOTH NARES NOTED. APPLIED PRESSURE TO BOTH NARES. COLD COMPRESS APPLIED. BLEEDING LYSIS AFTER 15 MINUTES
[2020-02-01] MEDS: SOLU-MEDROL IV SCH ×3 (05:19→20:56)
--- NOTE | 2020-02-01 05:30 | NUR ---
BATH RENDERED ORAL CARE, MICAH CARE, CHG BATH RENDERED. NEW GOWN DONNED. TOLERATED WELL
[2020-02-01] MEDS: HUMALOG SQ SCH ×4 (06:10→21:14)
[2020-02-01] MEDS ORDERED: LANTUS SQ SCH ×2 (06:30→13:30)
--- NOTE | 2020-02-01 06:45 | NUR ---
REPORT RECEIVED REPORT FROM OUTGOING SHIFT. ASSUMED CARE AT THIS TIME. PATIENT RESTING IN BED
--- NOTE | 2020-02-01 06:45 | NUR ---
REPORT RECEIVED REPORT FROM OUTGOING SHIFT. ASSUMED CARE AT THIS TIME. PATIENT RESTING IN BED.
--- NOTE | 2020-02-01 07:02 | NUR ---
REPORT GIVEN TO AM SHIFT NURSE ENDORSED PATIENT ACCORDINGLY
[2020-02-01 07:06] LABS: BASOPHIL % 0.1 % (0.0-0.2); LYMPHOCYTES % 4.8 % (24.0-44.0); MEAN CORP HGB 31.2 pg (26-34); MONOCYTES # 0.5 10^3/uL (0.3-0.8); MONOCYTES % 4.1 % (5.0-12.0); NEUTROPHIL # 11.3 10^3/uL (1.8-7.7); NEUTROPHILS % 90.8 % (41.0-85.0); PLATELET COUNT 246 10^3/uL (150-400); RED CELL DISTRIBUTION WIDTH 14.1 % (11.5-14.5)
[2020-02-01 07:35] LABS: CALCIUM 8.8 mg/dL (8.4-10.5); CARBON DIOXIDE 25.1 mmol/L (20.0-32)
--- NOTE | 2020-02-01 08:15 | NUR ---
LABS PATIENT D-DIME IS 0.60. NOTIFIED DR NAYLOR. NO NEW ORDERS AT THIS TIME. WILL CONTINUE TO MONITOR PATIENT Addendum: 02/01/20 at 0825 by Jolene Rios RN - Med/soda jerker D-DIMER 0.60
[2020-02-01] MEDS: BACID PO SCH ×3 (08:47→17:43)
[2020-02-01] MEDS: SYMBICORT 160-4.5 MCG INHALER IH SCH ×2 (09:00→20:57)
[2020-02-01] MEDS: HEPARIN-D5W 20,000 UNIT/500 ML 500 ML IV SCH (09:05)
[2020-02-01] MEDS: MS CONTIN PO SCH ×2 (09:20→20:57)
[2020-02-01] MEDS: ZESTRIL PO SCH (09:20)
[2020-02-01] MEDS: LASIX IV SCH ×2 (09:20→20:56)
[2020-02-01] MEDS: PLAVIX PO SCH (09:20)
[2020-02-01] MEDS: THERA PO SCH (09:21)
[2020-02-01] MEDS: ASPIRIN EC PO SCH (09:21)
[2020-02-01] MEDS: MUCINEX PO SCH ×2 (09:21→20:56)
[2020-02-01] MEDS: PROTONIX PO SCH (09:21)
--- NOTE | 2020-02-01 09:43 | NUR ---
DID NOT SCAN PT OR MEDS DUE TO PUI, NO COMBIVENT AVAILABLE AT THIS TIME SO GAVE HAYLEE MACHADO
[2020-02-01] MEDS: ZITHROMAX 500 MG in NS 250ML 250 ML IV SCH (11:18)
--- NOTE | 2020-02-01 12:15 | NUR ---
OXYGEN NOTIFIED AMBAR VIRGEN. DR VITAL WANT TO START WEANING HER OFF OF THE OXYGEN. AMBAR STATED SHE WOULD COME UP AND CHANGER HER.
--- NOTE | 2020-02-01 12:30 | NUR ---
UPDATE NOTIFIED DR CONTI PATIENT BLOOD SUGAR OF 477. RECEIVED ORDERS FOR 15 UNITS HUMOLOG WITH LUNCH. INCREASE LANTUS DOSE TO 30 MG. DECREASE SOLUDEDROL Addendum: 02/01/20 at 1320 by Jolene Rios RN - Med/administrative analyst UPDATE NOTIFIED DR CONTI PATIENT BLOOD SUGAR OF 477. RECEIVED ORDERS FOR 15 UNITS HUMOLOG WITH LUNCH. INCREASE LANTUS DOSE TO 30 MG. DECREASE SOLUMEDROL Addendum: 02/01/20 at 1322 by Jolene Rios RN - Med/administrative analyst UPDATE NOTIFIED DR CONTI PATIENT BLOOD SUGAR OF 477. RECEIVED ORDERS FOR 15 UNITS HUMOLOG WITH LUNCH. INCREASE LANTUS DOSE TO 30 MG. DECREASE SOLUMEDROL TO 40 MG TID
--- NOTE | 2020-02-01 12:45 | NUR ---
DISCHARGE PLAN D/T PUI STATUS CM DID NOT ENTER ROOM. PER Sherman ACOSTA RN PT LIVES AT HOME ALONE. SHE IS VERY IND OF ADLS. SHE DOES HAVE A GLUCOMETER THAT SHE USED IN HER HOME. HER PCP IS Nydia HANNA. PATIENT MAY REQUIRE O2 ON D/C. DISCHARGE PLAN IS FOR PT TO D/C BACK HOME TO ROUTINE CARE. CM WILL CONTINUE TO MONITOR NEEDS OF PT.
--- NOTE | 2020-02-01 13:45 | NUR ---
HEPARIN DR MORGAN ORDERED HEPARIN DRIP TO BE DISCONTINUED 48 HOURS AFTER START TIME. THIS WILL BE AT [phone]
--- NOTE | 2020-02-01 16:55 | PRM.PN ---
Subjective Subjective Date: Feb 01, 2020 Time: 14:00 Subjective No new cardiac issues overnight NSR on tele Covid-19 test pending Review of Systems Constitutional: No: Fever, Chills, Sweats, Weakness, Malaise, Other Eyes: No: Pain, Vision change, Conjunctivae inflammation, Eyelid inflammation, Other, Redness ENT: No: Ear pain, Ear discharge, Nose pain, Nose discharge, Nose congestion, Mouth pain, Mouth swelling, Throat pain, Throat swelling, Other Respiratory: No: Cough, Dry, Shortness of breath, SOB with excertion, Wheezing, Hemoptysis, Pleuritic Pain, Sputum, Wheezing, Other Cardiovascular: No: Chest Pain, Palpitations, Orthopnea, Paroxysmal Noc. Dyspnea, Edema, Lt Headedness, Other Gastrointestinal: No: Nausea, Vomiting, Abdominal Pain, Diarrhea, Constipation, Melena, Hematochezia, Other Genitourinary: No Dysuria, No Frequency, No Incontinence, No Hematuria, No Retention, No Other Musculoskeletal: No: other, neck pain, shoulder pain, arm pain, back pain, hand pain, leg pain, foot pain Neurological: No: Weakness, Numbness, Incoordination, Change in speech, Confusion, Seizures, Other Allergies: Coded Allergies: codeine (Verified Allergy, Severe, Rash,Itching, Skin Bubbles up and peals off, 07/09/16) Scheduled Amitriptyline Hcl (Amitriptyline Hcl), 1 TAB PO HS, (Reported) Atorvastatin 40MG (Lipitor 40MG), 1 TAB PO HS, (Reported) Budesonide/Formoterol Fumarate (Symbicort 160-4.5 Mcg Inhaler), 2 PUFF IH BID, (Reported) Clopidogrel Bisulfate (Clopidogrel), 1 TAB PO DAILY, (Reported) Gabapentin (Gabapentin), 1 CAP PO TID, (Reported) Gabapentin (Gabapentin), 1 CAP PO TID, (Reported) Insulin Aspart (Insulin Aspart), 0 SQ ACHS, (Reported) Insulin Glargine,Hum.rec.anlog (Lantus Solostar), 25 UNIT SQ ACB, (Reported) Isosorb Dinit/Hydralazine Hcl (Bidil Tablet), 1 EACH PO DAILY24, (Reported) Lisinopril (Lisinopril), 1 TAB PO DAILY, (Reported) Morphine Sulfate (Morphine Sulfate Er), 1 TAB PO BID, (Reported) Multivitamin (Multi Vitamin Daily), 1 EACH PO DAILY, (Reported) Nifedipine (Nifedipine Er), 90 MG PO DAILY24, (Reported) Potassium Chloride (Potassium Chloride), 10 MEQ PO DAILY24, (Reported) Sertraline Hcl (Zoloft), 1 TAB PO DAILY, (Reported) Tizanidine Hcl (Zanaflex), 1 CAP PO HS, (Reported) Discontinued Medications Azilsartan Med/Chlorthalidone (Edarbyclor 40-12.5 Mg Tablet), 1 EACH PO DAILY, (Reported) Discontinued Reason: No Longer Taking Azilsartan Med/Chlorthalidone (Edarbyclor 40-25 Mg Tablet), 1 EACH PO DAILY, (Reported) Discontinued Reason: No Longer Taking Glimepiride (Glimepiride), 1 TAB PO BID, (Reported) Discontinued Reason: No Longer Taking Naproxen (Naproxen), 0.5 TAB PO BID, (Reported) Discontinued Reason: No Longer Taking Objective Vitals and I/O Vital Sign - Last 24 Hours 01/31/20 01/31/20 01/31/20 01/31/20 17:15 17:30 17:41 17:45 Temp 98.3 Pulse 68 Resp 20 B/P (MAP) 116/37 (63) 122/48 (72) Pulse Ox 88 87 92 89 01/31/20 01/31/20 01/31/20 01/31/20 17:46 18:30 18:45 19:00 B/P (MAP) 120/45 (70) 71/25 (40) 95/86 (89) Pulse Ox 92 90 92 O2 Delivery Comfort Best O2 Flow Rate 30.00 01/31/20 01/31/20 01/31/20 01/31/20 19:00 19:00 19:00 19:15 Temp 97.0 Pulse 51 51 51 Resp 16 16 16 B/P (MAP) 109/46 (67) 109/46 (67) 118/40 (66) Pulse Ox 89 89 90 O2 Delivery Comfort Best O2 Flow Rate 30.00 FiO2 55 01/31/20 01/31/20 01/31/20 01/31/20 19:30 19:45 20:00 20:15 Pulse 55 52 64 52 Resp 21 18 13 19 B/P (MAP) 106/43 (64) 123/38 (66) 118/57 (77) 124/49 (74) Pulse Ox 90 94 90 90 01/31/20 01/31/20 01/31/20 01/31/20 20:30 20:31 20:45 21:00 Pulse 56 56 54 52 Resp 26 26 18 16 B/P (MAP) 136/50 (78) 129/46 (73) 125/46 (72) Pulse Ox 90 89 92 92 01/31/20 01/31/20 01/31/20 01/31/20 21:08 21:15 21:30 21:45 Pulse 57 61 65 Resp 16 12 14 B/P (MAP) 136/66 141/57 (85) 136/60 (85) 136/40 (72) Pulse Ox 90 90 90 01/31/20 01/31/20 01/31/20 01/31/20 22:00 22:12 22:12 22:15 Pulse 53 55 55 54 Resp 19 20 20 14 B/P (MAP) 119/63 (81) 136/53 (80) Pulse Ox 94 93 93 93 O2 Delivery Comfort Best O2 Flow Rate 40.00 FiO2 45 01/31/20 01/31/20 01/31/20 01/31/20 22:30 22:45 23:00 23:00 Pulse 61 53 53 Resp 20 22 15 B/P (MAP) 149/49 (82) 154/71 (98) 146/59 (88) Pulse Ox 91 97 96 O2 Delivery Comfort Best O2 Flow Rate 30.00 01/31/20 01/31/20 01/31/20 02/01/20 23:15 23:30 23:45 00:00 Pulse 53 54 54 52 Resp 11 12 18 19 B/P (MAP) 131/58 (82) 137/58 (84) 136/78 (97) 134/56 (82) Pulse Ox 93 97 98 96 02/01/20 02/01/20 02/01/20 02/01/20 00:15 00:30 00:45 01:00 Pulse 52 53 53 54 Resp 22 20 16 14 B/P (MAP) 146/51 (82) 141/56 (84) 145/54 (84) 152/46 (81) Pulse Ox 98 99 96 96 02/01/20 02/01/20 02/01/2029/20 01:15 01:30 01:45 01:51 Pulse 56 66 67 56 Resp 20 24 25 20 B/P (MAP) 145/57 (86) 144/56 (85) 149/70 (96) Pulse Ox 99 99 99 99 02/01/20 02/01/20 02/01/20 02/01/20 02:00 02:15 02:24 02:30 Pulse 65 67 71 Resp 19 20 12 14 B/P (MAP) 128/44 (72) 129/56 (80) 159/109 (126) Pulse Ox 99 98 96 O2 Delivery Mask O2 Flow Rate 10.00 02/01/20 02/01/20 02/01/20 02/01/20 02:45 02:47 02:50 03:00 Temp 97.0 Pulse 57 69 68 68 Resp 25 16 15 38 B/P (MAP) 125/47 (73) 121/50 (73) Pulse Ox 100 99 100 99 02/01/20 02/01/20 02/01/20 02/01/20 03:02 03:30 03:45 04:00 Pulse 68 68 68 Resp 24 14 18 Pulse Ox 100 99 99 O2 Delivery Mask O2 Flow Rate 10.00 02/01/20 02/01/20 02/01/20 02/01/20 04:01 04:15 04:30 04:45 Pulse 68 67 67 67 Resp 15 20 22 24 B/P (MAP) 119/62 (81) Pulse Ox 98 99 100 96 02/01/20 02/01/20 02/01/20 02/01/20 04:48 05:00 05:15 05:30 Pulse 68 69 69 71 Resp 38 20 23 20 B/P (MAP) 124/74 (91) Pulse Ox 99 98 97 98 02/01/20 02/01/20 02/01/20 02/01/20 05:45 06:00 06:02 06:15 Pulse 69 69 69 70 Resp 22 19 10 15 B/P (MAP) 134/65 (88) Pulse Ox 97 99 97 98 02/01/20 02/01/20 02/01/20 02/01/20 07:15 07:30 07:45 08:00 Pulse 67 67 65 Resp 38 20 8 Pulse Ox 100 99 99 O2 Delivery Mask O2 Flow Rate 10.00 02/01/20 02/01/20 02/01/20 02/01/20 08:00 08:01 08:15 08:30 Pulse 66 67 66 67 Resp 20 18 22 28 B/P (MAP) 146/88 (107) Pulse Ox 98 98 97 99 02/01/20 02/01/20 02/01/20 02/01/20 08:45 09:00 09:15 09:20 Pulse 66 66 72 Resp 19 22 17 B/P (MAP) 130/63 (85) 134/65 Pulse Ox 99 99 95 02/01/20 02/01/20 02/01/20 02/01/20 09:20 09:30 09:41 09:45 Pulse 72 66 67 Resp 16 26 17 B/P (MAP) 134/65 Pulse Ox 92 99 98 O2 Delivery Mask O2 Flow Rate 15.00 FiO2 100 02/01/20 02/01/20 02/01/20 02/01/20 10:00 10:15 10:30 10:45 Pulse 72 69 71 69 Resp 12 19 20 22 B/P (MAP) 122/44 (70) Pulse Ox 99 97 97 99 02/01/20 02/01/20 02/01/20 02/01/20 11:00 11:15 11:30 11:45 Pulse 70 70 68 74 Resp 24 20 21 18 B/P (MAP) 120/46 (70) Pulse Ox 99 100 97 98 02/01/20 02/01/20 02/01/20 02/01/20 12:00 12:15 12:30 12:30 Pulse 71 71 69 Resp 22 25 24 B/P (MAP) 126/75 (92) Pulse Ox 97 98 98 O2 Delivery Mask O2 Flow Rate 10.00 02/01/20 02/01/20 02/01/20 02/01/20 12:45 13:00 13:15 13:30 Pulse 69 72 55 74 Resp 25 23 23 20 B/P (MAP) 131/55 (80) Pulse Ox 98 98 97 90 02/01/20 02/01/20 02/01/20 02/01/20 13:45 13:54 13:54 14:00 Pulse 69 68 68 73 Resp 20 21 21 23 B/P (MAP) 117/49 (71) Pulse Ox 95 96 96 97 O2 Delivery Venturi Mask FiO2 40 02/01/20 02/01/20 02/01/20 14:15 14:30 15:09 Pulse 69 54 Resp 24 26 Pulse Ox 97 95 O2 Delivery Venturi Mask Intake and Output 02/01/20 07:00 Intake Total 2859 ml Output Total 3500 ml Balance -641 ml General: Alert, Oriented X3 HEENT: Atraumatic, PERRLA, EOMI Neck: Supple, No JVD, No thyromegaly Lungs: Other Heart: Regular rate, Normal S1, Normal S2 Abdomen: Normal bowel sounds Extremities: No clubbing, No cyanosis Neuro: Normal speech, Sensation intact All Results(Lab/Rad) Laboratory Tests Test 01/31/20 18:05 01/31/20 20:32 02/01/20 01:57 02/01/20 05:23 Total Creatine Kinase 203 U/L 197 U/L Creatine Kinase MB 3.4 ng/mL 3.1 ng/mL Troponin I 0.21 ng/mL 0.16 ng/mL Activated Partial Thromboplast Time 45.5 SEC 45.0 SEC Bedside Glucose 318 Test 02/01/20 07:00 02/01/20 07:54 02/01/20 13:10 White Blood Count 12.4 10^3/uL Red Blood Count 3.78 10^6/uL Hemoglobin 11.8 g/dL Hematocrit 34.6 % Mean Corpuscular Volume 91.5 fL Mean Corpuscular Hemoglobin 31.2 pg Mean Corpuscular Hemoglobin Concent 34.1 g/dL Red Cell Distribution Width 14.1 % Platelet Count 246 10^3/uL Mean Platelet Volume 10.3 fL Neutrophils (%) (Auto) 90.8 % Lymphocytes (%) (Auto) 4.8 % Monocytes (%) (Auto) 4.1 % Neutrophils # (Auto) 11.3 10^3/uL Lymphocytes # (Auto) 0.60 10^3/uL1 Monocytes # (Auto) 0.5 10^3/uL Absolute Immature Granulocyte (auto 0.02 10^3 u/L Absolute Eosinophils (auto) 0.0 10^3/uL Immature Granulocytes % 0.20 % Eosinophils % 0.0 % Basophils % 0.1 % Basophils # 0.0 10^3/uL Activated Partial Thromboplast Time 41.4 SEC 37.4 SEC Fibrinogen 486 mg/dL D-Dimer 0.60 mg/L Sodium Level 130 mmol/L Potassium Level 3.6 mmol/L Chloride Level 97.0 mmol/L Carbon Dioxide Level 25.1 mmol/L Anion Gap 11.5 Blood Urea Nitrogen 16 mg/dL Creatinine 0.89 mg/dL Estimated GFR () 77.5 Est GFR (CKD-EPI)(Non-Afr Nigerian) 64.1 BUN/Creatinine Ratio 17.0 Glucose Level 362 mg/dL Hemoglobin A1c 10.8 % Calcium Level 8.8 mg/dL Phosphorus Level 2.9 mg/dL Magnesium Level 1.7 mg/dL Ferritin 181 ng/mL Total Bilirubin 0.5 mg/dL Aspartate Amino Transf (AST/SGOT) 20 U/L Alanine Aminotransferase (ALT/SGPT) 34 U/L Alkaline Phosphatase 83 U/L Lactate Dehydrogenase 158 U/L Total Creatine Kinase 172 U/L Creatine Kinase MB 2.6 ng/mL Troponin I 0.12 ng/mL C-Reactive Protein 10.12 mg/dL Pro-B-Type Natriuretic Peptide 6303 pg/mL Total Protein 7.2 g/dL Albumin 2.9 g/dL Globulin 4.3 Albumin/Globulin Ratio 0.674 Triglycerides Level 108 mg/dL Cholesterol Level 183 mg/dL LDL Cholesterol, Calculated 115.4 VLDL Cholesterol, Calculated 21.6 HDL Cholesterol 46 mg/dL Cholesterol Ratio (LDL/HDL) 2.5 Cholesterol/HDL Ratio [id number] Procalcitonin 0.06 ng/mL Thyroid Stimulating Hormone (TSH) 0.204 mIU/mL Bedside Glucose 365 Current Medications Medications (Trade) Dose Ordered Sig/Presley Route PRN Reason Start Time Stop Time Status Last Admin Dose Admin Albuterol Sulfate (Ventolin Hfa) 2 inh OT ONCE IH 01/31/20 09:00 01/31/20 12:21 DC 01/31/20 09:21 Sodium Chloride 2,994 ml @ 1,497 mls/hr OT IV 01/31/20 09:00 01/31/20 15:42 DC 01/31/20 09:21 Insulin Human Regular (Humulin R) 10 unit OT ONCE IV 01/31/20 09:00 01/31/20 09:01 DC 01/31/20 09:20 Sodium Chloride 1,000 ml @ ud STK-MED ONCE .ROUTE 01/31/20 08:51 01/31/20 08:53 DC Insulin Human Regular (Humulin R) 1 unit STK-MED ONCE .ROUTE 01/31/20 08:51 01/31/20 08:53 DC Aspirin (Aspirin) 325 mg STAT STAT PO 01/31/20 08:56 01/31/20 12:19 DC 01/31/20 09:20 Nitroglycerin (Nitro-Bid) 1 gm STAT STAT TD 01/31/20 09:36 01/31/20 12:19 DC 01/31/20 09:56 Enoxaparin Sodium (Lovenox) 100 mg BID SQ 01/31/20 21:00 01/31/20 15:28 DC 01/31/20 09:56 Enoxaparin Sodium (Lovenox) 100 mg STK-MED ONCE SQ 01/31/20 09:51 01/31/20 09:53 DC Azithromycin 500 mg/Sodium Chloride 250 ml @ 175 mls/hr STAT ONCE IV 01/31/20 10:30 01/31/20 12:19 DC 01/31/20 10:40 Furosemide (Lasix) 40 mg STAT STAT IV 01/31/20 10:06 01/31/20 12:19 DC 01/31/20 12:30 Sodium Chloride 250 ml @ ud STK-MED ONCE IV 01/31/20 10:27 01/31/20 10:29 DC Furosemide (Lasix) 40 mg STK-MED ONCE .ROUTE 01/31/20 12:21 01/31/20 12:24 DC Furosemide (Lasix) 40 mg STK-MED ONCE .ROUTE 01/31/20 13:21 01/31/20 13:23 DC Furosemide (Lasix) 40 mg BID PO 01/31/20 21:00 01/31/20 21:41 DC 01/31/20 21:08 Heparin Sodium/ Dextrose 500 ml @ ud STK-MED ONCE IV 01/31/20 14:16 01/31/20 14:19 DC Heparin Sodium (Porcine) (Heparin) 5,000 unit STK-MED ONCE .ROUTE 01/31/20 14:17 01/31/20 14:19 DC Heparin Sodium (Porcine) (Heparin) 5,000 unit OT ONCE IV 01/31/20 15:00 01/31/20 16:12 DC 01/31/20 15:31 Heparin Sodium/ Dextrose 500 ml @ 0 mls/hr TITRATE IV 01/31/20 15:00 03/01/20 14:59 02/01/20 09:05 Aspirin (Aspirin Ec) 81 mg DAILY PO 02/01/20 09:00 03/02/20 08:59 02/01/20 09:21 Acetaminophen (Tylenol) 1,000 mg Q6H PRN PO pain or fever 01/31/20 16:00 03/01/20 15:59 Pantoprazole Sodium (Protonix) 40 mg DAILY PO 02/01/20 09:00 03/02/20 08:59 02/01/20 09:21 Morphine Sulfate (Morphine Sulfate) 2 mg Q4H PRN IV PAIN SEVER 01/31/20 16:00 03/01/20 15:59 Albuterol Sulfate (Ventolin) 2.5 mg RTQ2 PRN IH SHORTNESS OF BREATH 01/31/20 16:00 01/31/20 17:00 DC Ipratropium [place] (Atrovent) 0.5 mg RTQ2 PRN IH SHORTNESS OF BREATH 01/31/20 16:00 01/31/20 17:00 DC Insulin Human Lispro (Humalog) 0-140 0 Units 141-200... ACHS SQ 01/31/20 17:30 03/01/20 17:29 02/01/20 12:45 Albuterol Sulfate (Ventolin) 2.5 mg RTQ4 IH 01/31/20 17:00 01/31/20 17:00 DC Ipratropium [place] (Atrovent) 0.5 mg Q4 IH 01/31/20 16:00 01/31/20 17:00 DC Guaifenesin (Mucinex) 600 mg BID PO 01/31/20 21:00 03/01/20 20:59 02/01/20 09:21 Methylprednisolone Sodium Succinate (Solu-Medrol) 60 mg Q8HR IV 01/31/20 22:00 02/01/20 13:31 DC 02/01/20 05:19 Azithromycin 500 mg/Sodium Chloride 250 ml @ 175 mls/hr Q24HRS IV 02/01/20 10:30 03/02/20 10:29 02/01/20 11:18 Ondansetron HCl (Zofran) 4 mg Q4H PRN IV NAUSEA / VOMITING 01/31/20 16:00 03/01/20 15:59 Albuterol/ Ipratropium (Combivent Respimat 20-100 Mcg) 1 inh RTQ4 IH 01/31/20 17:00 03/01/20 16:59 02/01/20 13:00 Albuterol/ Ipratropium (Combivent Respimat 20-100 Mcg) 1 inh RTQ2 PRN IH SHORTNESS OF BREATH 01/31/20 17:00 03/01/20 16:59 Amitriptyline HCl (Elavil) 50 mg HS PO 01/31/20 21:00 03/01/20 20:59 01/31/20 21:07 Atorvastatin Calcium (Lipitor) 40 mg HS PO 01/31/20 21:00 03/01/20 20:59 01/31/20 21:08 Clopidogrel Bisulfate (Plavix) 75 mg DAILY PO 02/01/20 09:00 03/02/20 08:59 02/01/20 09:20 Lisinopril (Zestril) 2.5 mg DAILY PO 02/01/20 09:00 03/02/20 08:59 02/01/20 09:20 Morphine Sulfate (Ms Contin) 15 mg BID PO 01/31/20 21:00 03/01/20 20:59 02/01/20 09:20 Insulin Glargine (Lantus) 25 unit ACB SQ 02/01/20 06:30 02/01/20 13:31 DC 02/01/20 06:48 Ceftriaxone Sodium 1000 mg/ Sodium Chloride 100 ml @ 100 mls/hr Q24HRS IV 01/31/20 17:30 03/01/20 17:29 01/31/20 17:45 Lactobacillus Acidophilus (Bacid) 1 each TIDM PO 01/31/20 18:00 03/01/20 17:59 02/01/20 12:40 Budesonide/ Formoterol Fumarate (Symbicort 160-4.5 Mcg Inhaler) 2 inh BID IH 01/31/20 21:00 03/01/20 20:59 02/01/20 09:00 Methylprednisolone Sodium Succinate (Solu-Medrol) 125 mg STK-MED ONCE .ROUTE 01/31/20 20:23 01/31/20 20:26 DC Sodium Chloride 1,000 ml @ ud STK-MED ONCE .ROUTE 01/31/20 21:14 01/31/20 21:16 DC Furosemide (Lasix) 40 mg BID IV 02/01/20 09:00 03/02/20 08:59 02/01/20 09:20 Insulin Glargine (Lantus) 30 unit ACB SQ 02/01/20 13:30 02/01/20 13:41 DC Methylprednisolone Sodium Succinate (Solu-Medrol) 40 mg TID IV 02/01/20 15:00 03/02/20 14:59 02/01/20 15:15 Insulin Glargine (Lantus) 30 unit ACB SQ 02/02/20 06:30 03/03/20 06:29 Assessment/Plan Assessment/Plan Assessment/Plan 1. Acute decompensated heart failure -- due to diastolic dysfunction. 2. Severe hyponatremia. 3. Severe hyperglycemia. 4. Elevated white blood cell count, highly suspicious for an acute infectious process. 5. Abnormal EKG with ST depressions in the anterolateral leads suggestive of myocardial ischemia. 6. Diabetes mellitus type 2. 7. Hyperlipidemia. 8. Hypertension. 9. Acute chronic obstructive pulmonary disease exacerbation. 10. Known history of peripheral arterial disease. 11. PUI for COVID-19, coronavirus. Plan Continue diuretics Continue Vance-inh/BIDIL/DAPT/Statin BB on hold due to low running BP LVEF 65-70% on 2d ECHO with Severe TR D/C heparin gtt tomorrow AM Fluid restriction/strict I and O's/Daily weights Continue to treat COPD ex. Correct electrolyte imbalance Covid-19 coronavirus test pending Will pursue [facility] if covid test is negative and patient becomes euvolemic LLOYD MORGAN DO Feb 01, 2020 16:54
[2020-02-01] MEDS: ROCEPHIN 1,000 MG in NS 100ML 100 ML IV SCH (17:42)
--- NOTE | 2020-02-01 19:00 | NUR ---
RECEIVED PATIENT PATIENT ON VENTURI MASK AT 9 LPM 35% SPO2 96% COMFORTABLE. AFEBRILE. TERESA PATENT AND DRAINING BY GRAVITY. CALL LIGHT AND TABLE IN REACH. ASSUMED CARE
--- NOTE | 2020-02-01 20:30 | NUR ---
TELEPHONE ORDER FROM DR CONTI RECEIVED ORDER FOR CBC, CMP AND MG IN AM. RBTO
--- NOTE | 2020-02-01 20:49 | NUR ---
COVID RESULT RECEIVED PHONE CALL FROM BROOKS FROM LAB RE: NEGATIVE COVID RESULT. NOTIFIED DR CONTI. ISOLATION DISCONTINUED PER MD ORDER
--- NOTE | 2020-02-01 20:53 | PRM.PN ---
Subjective Subjective Date: Feb 01, 2020 Time: 08:00 Subjective Patient is seen and examined this morning doing well laying in bed not in any acute distress. Patient History: FH: breast cancer 32 MOTHER, , Age:77 FH: heart attack 32 MOTHER, , Age:77 Glaucoma 19 CHILD Hypertension 32 MOTHER, , Age:77 No known health problems G8 SISTER (1/2 SISTER) 19 CHILD G8 SISTER (1/2 SISTER) Unknown 33 FATHER, Age:84 G8 BROTHER (1/2 BROTHER ), VTE VTE Risk Total Score: >5 VTE Risk Score VTE Risk: Score 0-1 = Low Risk (Aggressive mobilization; early ambulation; no VTE prophylaxis required) Score 2: Moderate Risk (Intermittent/Pneumatic Compression Device OR Lovenox/Heparin/Coumadin) Score 3-4: High Risk (Intermittent/Pneumatic Compression Device AND Lovenox/Heparin/Coumadin) Score > or =5: Highest Risk (Intermittent/Pneumatic Compression Device AND Lovenox/Heparin/Coumadin) Review of Systems Constitutional: No: Fever, Chills, Sweats, Weakness, Malaise Eyes: No: Pain, Vision change, Conjunctivae inflammation, Eyelid inflammation, Redness ENT: No: Ear pain, Ear discharge, Nose pain, Nose discharge, Nose congestion, Mouth pain, Mouth swelling, Throat pain, Throat swelling Respiratory: No: Cough, Dry, Shortness of breath, SOB with excertion, Wheezing, Hemoptysis, Pleuritic Pain, Sputum, Wheezing Cardiovascular: No: Chest Pain, Palpitations, Orthopnea, Paroxysmal Noc. Dyspnea, Edema, Lt Headedness Gastrointestinal: No: Nausea, Vomiting, Abdominal Pain, Diarrhea, Constipation, Melena, Hematochezia Genitourinary: No Dysuria, No Frequency, No Incontinence, No Hematuria, No Retention; Other Musculoskeletal: No: neck pain, shoulder pain, arm pain, back pain, hand pain, leg pain, foot pain Neurological: No: Weakness, Numbness, Incoordination, Change in speech, Co nfusion, Seizures Allergies: Coded Allergies: codeine (Verified Allergy, Severe, Rash,Itching, Skin Bubbles up and peals off, 07/09/16) Scheduled Amitriptyline Hcl (Amitriptyline Hcl), 1 TAB PO HS, (Reported) Atorvastatin 40MG (Lipitor 40MG), 1 TAB PO HS, (Reported) Budesonide/Formoterol Fumarate (Symbicort 160-4.5 Mcg Inhaler), 2 PUFF IH BID, (Reported) Clopidogrel Bisulfate (Clopidogrel), 1 TAB PO DAILY, (Reported) Gabapentin (Gabapentin), 1 CAP PO TID, (Reported) Gabapentin (Gabapentin), 1 CAP PO TID, (Reported) Insulin Aspart (Insulin Aspart), 0 SQ ACHS, (Reported) Insulin Glargine,Hum.rec.anlog (Lantus Solostar), 25 UNIT SQ ACB, (Reported) Isosorb Dinit/Hydralazine Hcl (Bidil Tablet), 1 EACH PO DAILY24, (Reported) Lisinopril (Lisinopril), 1 TAB PO DAILY, (Reported) Metoprolol Tartrate 25MG (Lopresser 25MG), 25 MG PO BID Morphine Sulfate (Morphine Sulfate Er), 1 TAB PO BID, (Reported) Multivitamin (Multi Vitamin Daily), 1 EACH PO DAILY, (Reported) Nifedipine (Nifedipine Er), 90 MG PO DAILY24, (Reported) Potassium Chloride (Potassium Chloride), 10 MEQ PO DAILY24, (Reported) Sertraline Hcl (Zoloft), 1 TAB PO DAILY, (Reported) Tizanidine Hcl (Zanaflex), 1 CAP PO HS, (Reported) Discontinued Medications Azilsartan Med/Chlorthalidone (Edarbyclor 40-12.5 Mg Tablet), 1 EACH PO DAILY, (Reported) Discontinued Reason: No Longer Taking Azilsartan Med/Chlorthalidone (Edarbyclor 40-25 Mg Tablet), 1 EACH PO DAILY, (Reported) Discontinued Reason: No Longer Taking Glimepiride (Glimepiride), 1 TAB PO BID, (Reported) Discontinued Reason: No Longer Taking Naproxen (Naproxen), 0.5 TAB PO BID, (Reported) Discontinued Reason: No Longer Taking Objective Vitals and I/O Vital Sign - Last 24 Hours 01/31/20 01/31/20 01/31/20 01/31/20 20:45 21:00 21:08 21:15 Pulse 54 52 57 Resp 18 16 16 B/P (MAP) 129/46 (73) 125/46 (72) 136/66 141/57 (85) Pulse Ox 92 92 90 01/31/20 01/31/20 01/31/20 01/31/20 21:30 21:45 22:00 22:12 Pulse 61 65 53 55 Resp 12 14 19 20 B/P (MAP) 136/60 (85) 136/40 (72) 119/63 (81) Pulse Ox 90 90 94 93 O2 Delivery Comfort Best O2 Flow Rate 40.00 FiO2 45 01/31/20 01/31/20 01/31/20 01/31/20 22:12 22:15 22:30 22:45 Pulse 55 54 61 53 Resp 20 14 20 22 B/P (MAP) 136/53 (80) 149/49 (82) 154/71 (98) Pulse Ox 93 93 91 97 01/31/20 01/31/20 01/31/20 01/31/20 23:00 23:00 23:15 23:30 Pulse 53 53 54 Resp 15 11 12 B/P (MAP) 146/59 (88) 131/58 (82) 137/58 (84) Pulse Ox 96 93 97 O2 Delivery Comfort Best O2 Flow Rate 30.00 01/31/20 02/01/20 02/01/20 02/01/20 23:45 00:00 00:15 00:30 Pulse 54 52 52 53 Resp 18 19 22 20 B/P (MAP) 136/78 (97) 134/56 (82) 146/51 (82) 141/56 (84) Pulse Ox 98 96 98 99 02/01/20 02/01/20 02/01/20 02/01/20 00:45 01:00 01:15 01:30 Pulse 53 54 56 66 Resp 16 14 20 24 B/P (MAP) 145/54 (84) 152/46 (81) 145/57 (86) 144/56 (85) Pulse Ox 96 96 99 99 02/01/20 02/01/20 02/01/20 02/01/20 01:45 01:51 02:00 02:15 Pulse 67 56 65 67 Resp 25 20 19 20 B/P (MAP) 149/70 (96) 128/44 (72) 129/56 (80) Pulse Ox 99 99 99 98 02/01/20 02/01/20 02/01/20 02/01/20 02:24 02:30 02:45 02:47 Pulse 71 57 69 Resp 12 14 25 16 B/P (MAP) 159/109 (126) Pulse Ox 96 100 99 O2 Delivery Mask O2 Flow Rate 10.00 02/01/20 02/01/20 02/01/20 02/01/20 02:50 03:00 03:02 03:30 Temp 97.0 Pulse 68 68 68 Resp 15 38 24 B/P (MAP) 125/47 (73) 121/50 (73) Pulse Ox 100 99 100 O2 Delivery Mask O2 Flow Rate 10.00 02/01/20 02/01/20 02/01/20 02/01/20 03:45 04:00 04:01 04:15 Pulse 68 68 68 67 Resp 14 18 15 20 B/P (MAP) 119/62 (81) Pulse Ox 99 99 98 99 02/01/20 02/01/20 02/01/20 02/01/20 04:30 04:45 04:48 05:00 Pulse 67 67 68 69 Resp 22 24 38 20 B/P (MAP) 124/74 (91) Pulse Ox 100 96 99 98 02/01/20 02/01/20 02/01/20 02/01/20 05:15 05:30 05:45 06:00 Pulse 69 71 69 69 Resp 23 20 22 19 Pulse Ox 97 98 97 99 02/01/20 02/01/20 02/01/20 02/01/20 06:02 06:15 07:15 07:30 Pulse 69 70 67 67 Resp 10 15 38 20 B/P (MAP) 134/65 (88) Pulse Ox 97 98 100 99 02/01/20 02/01/20 02/01/20 02/01/20 07:45 08:00 08:00 08:01 Pulse 65 66 67 Resp 8 20 18 B/P (MAP) 146/88 (107) Pulse Ox 99 98 98 O2 Delivery Mask O2 Flow Rate 10.00 02/01/20 02/01/20 02/01/20 02/01/20 08:15 08:30 08:45 09:00 Temp 98.3 Pulse 66 67 66 66 Resp 22 28 19 22 B/P (MAP) 130/63 (85) Pulse Ox 97 99 99 99 02/01/20 02/01/20 02/01/20 02/01/20 09:15 09:20 09:20 09:30 Pulse 72 72 Resp 17 16 B/P (MAP) 134/65 134/65 Pulse Ox 95 92 02/01/20 02/01/20 02/01/20 02/01/20 09:41 09:45 10:00 10:15 Pulse 66 67 72 69 Resp 26 17 12 19 B/P (MAP) 122/44 (70) Pulse Ox 99 98 99 97 O2 Delivery Mask O2 Flow Rate 15.00 FiO2 100 02/01/20 02/01/20 02/01/20 02/01/20 10:30 10:45 11:00 11:15 Pulse 71 69 70 70 Resp 20 22 24 20 B/P (MAP) 120/46 (70) Pulse Ox 97 99 99 100 02/01/20 02/01/20 02/01/20 02/01/20 11:30 11:45 12:00 12:15 Pulse 68 74 71 71 Resp 21 18 22 25 B/P (MAP) 126/75 (92) Pulse Ox 97 98 97 98 02/01/20 02/01/20 02/01/20 02/01/20 12:30 12:30 12:45 13:00 Temp 98.0 Pulse 69 69 72 Resp 24 25 23 B/P (MAP) 131/55 (80) Pulse Ox 98 98 98 O2 Delivery Mask O2 Flow Rate 10.00 02/01/20 02/01/20 02/01/20 02/01/20 13:15 13:30 13:45 13:54 Pulse 55 74 69 68 Resp 23 20 20 21 Pulse Ox 97 90 95 96 O2 Delivery Venturi Mask FiO2 40 02/01/20 02/01/20 02/01/20 02/01/20 13:54 14:00 14:15 14:30 Temp 98.4 Pulse 68 73 69 54 Resp 21 23 24 26 B/P (MAP) 117/49 (71) Pulse Ox 96 97 97 95 02/01/20 02/01/20 15:09 17:49 Pulse 66 Resp 26 Pulse Ox 96 O2 Delivery Venturi Mask Intake and Output 02/01/20 07:00 Intake Total 2959 ml Output Total 3500 ml Balance -541 ml General: Alert, Oriented X3 HEENT: Atraumatic, PERRLA, EOMI Neck: Supple, No JVD, No thyromegaly Lungs: Other Heart: Regular rate, Normal S1, Normal S2 Abdomen: Normal bowel sounds Extremities: No clubbing, No cyanosis Skin: No rashes, No breakdown, No significant lesion Neuro: Normal speech, Sensation intact Psych/Mental Status: Mental status NL, Mood NL All Results(Lab/Rad) Laboratory Tests Test 01/31/20 18:05 01/31/20 20:32 02/01/20 01:57 02/01/20 05:23 Total Creatine Kinase 203 U/L 197 U/L Creatine Kinase MB 3.4 ng/mL 3.1 ng/mL Troponin I 0.21 ng/mL 0.16 ng/mL Activated Partial Thromboplast Time 45.5 SEC 45.0 SEC Bedside Glucose 318 Test 02/01/20 07:00 02/01/20 07:54 02/01/20 13:10 White Blood Count 12.4 10^3/uL Red Blood Count 3.78 10^6/uL Hemoglobin 11.8 g/dL Hematocrit 34.6 % Mean Corpuscular Volume 91.5 fL Mean Corpuscular Hemoglobin 31.2 pg Mean Corpuscular Hemoglobin Concent 34.1 g/dL Red Cell Distribution Width 14.1 % Platelet Count 246 10^3/uL Mean Platelet Volume 10.3 fL Neutrophils (%) (Auto) 90.8 % Lymphocytes (%) (Auto) 4.8 % Monocytes (%) (Auto) 4.1 % Neutrophils # (Auto) 11.3 10^3/uL Lymphocytes # (Auto) 0.60 10^3/uL1 Monocytes # (Auto) 0.5 10^3/uL Absolute Immature Granulocyte (auto 0.02 10^3 u/L Absolute Eosinophils (auto) 0.0 10^3/uL Immature Granulocytes % 0.20 % Eosinophils % 0.0 % Basophils % 0.1 % Basophils # 0.0 10^3/uL Activated Partial Thromboplast Time 41.4 SEC 37.4 SEC Fibrinogen 486 mg/dL D-Dimer 0.60 mg/L Sodium Level 130 mmol/L Potassium Level 3.6 mmol/L Chloride Level 97.0 mmol/L Carbon Dioxide Level 25.1 mmol/L Anion Gap 11.5 Blood Urea Nitrogen 16 mg/dL Creatinine 0.89 mg/dL Estimated GFR () 77.5 Est GFR (CKD-EPI)(Non-Afr Iranian) 64.1 BUN/Creatinine Ratio 17.0 Glucose Level 362 mg/dL Hemoglobin A1c 10.8 % Calcium Level 8.8 mg/dL Phosphorus Level 2.9 mg/dL Magnesium Level 1.7 mg/dL Ferritin 181 ng/mL Total Bilirubin 0.5 mg/dL Aspartate Amino Transf (AST/SGOT) 20 U/L Alanine Aminotransferase (ALT/SGPT) 34 U/L Alkaline Phosphatase 83 U/L Lactate Dehydrogenase 158 U/L Total Creatine Kinase 172 U/L Creatine Kinase MB 2.6 ng/mL Troponin I 0.12 ng/mL C-Reactive Protein 10.12 mg/dL Pro-B-Type Natriuretic Peptide 6303 pg/mL Total Protein 7.2 g/dL Albumin 2.9 g/dL Globulin 4.3 Albumin/Globulin Ratio 0.674 Triglycerides Level 108 mg/dL Cholesterol Level 183 mg/dL LDL Cholesterol, Calculated 115.4 VLDL Cholesterol, Calculated 21.6 HDL Cholesterol 46 mg/dL Cholesterol Ratio (LDL/HDL) 2.5 Cholesterol/HDL Ratio 3.588018 Procalcitonin 0.06 ng/mL Thyroid Stimulating Hormone (TSH) 0.204 mIU/mL Bedside Glucose 365 Current Medications Medications (Trade) Dose Ordered Sig/Presley Route PRN Reason Start Time Stop Time Status Last Admin Dose Admin Albuterol Sulfate (Ventolin Hfa) 2 inh OT ONCE IH 01/31/20 09:00 01/31/20 12:21 DC 01/31/20 09:21 Sodium Chloride 2,994 ml @ 1,497 mls/hr OT IV 01/31/20 09:00 01/31/20 15:42 DC 01/31/20 09:21 Insulin Human Regular (Humulin R) 10 unit OT ONCE IV 01/31/20 09:00 01/31/20 09:01 DC 01/31/20 09:20 Sodium Chloride 1,000 ml @ ud STK-MED ONCE .ROUTE 01/31/20 08:51 01/31/20 08:53 DC Insulin Human Regular (Humulin R) 1 unit STK-MED ONCE .ROUTE 01/31/20 08:51 01/31/20 08:53 DC Aspirin (Aspirin) 325 mg STAT STAT PO 01/31/20 08:56 01/31/20 12:19 DC 01/31/20 09:20 Nitroglycerin (Nitro-Bid) 1 gm STAT STAT TD 9/28/20 09:36 01/31/20 12:19 DC 01/31/20 09:56 Enoxaparin Sodium (Lovenox) 100 mg BID SQ 01/31/20 21:00 01/31/20 15:28 DC 01/31/20 09:56 Enoxaparin Sodium (Lovenox) 100 mg STK-MED ONCE SQ 01/31/20 09:51 01/31/20 09:53 DC Azithromycin 500 mg/Sodium Chloride 250 ml @ 175 mls/hr STAT ONCE IV 01/31/20 10:30 01/31/20 12:19 DC 01/31/20 10:40 Furosemide (Lasix) 40 mg STAT STAT IV 01/31/20 10:06 01/31/20 12:19 DC 01/31/20 12:30 Sodium Chloride 250 ml @ ud STK-MED ONCE IV 01/31/20 10:27 01/31/20 10:29 DC Furosemide (Lasix) 40 mg STK-MED ONCE .ROUTE 01/31/20 12:21 01/31/20 12:24 DC Furosemide (Lasix) 40 mg STK-MED ONCE .ROUTE 01/31/20 13:21 01/31/20 13:23 DC Furosemide (Lasix) 40 mg BID PO 01/31/20 21:00 01/31/20 21:41 DC 01/31/20 21:08 Heparin Sodium/ Dextrose 500 ml @ ud STK-MED ONCE IV 01/31/20 14:16 01/31/20 14:19 DC Heparin Sodium (Porcine) (Heparin) 5,000 unit STK-MED ONCE .ROUTE 01/31/20 14:17 01/31/20 14:19 DC Heparin Sodium (Porcine) (Heparin) 5,000 unit OT ONCE IV 01/31/20 15:00 01/31/20 16:12 DC 01/31/20 15:31 Heparin Sodium/ Dextrose 500 ml @ 0 mls/hr TITRATE IV 01/31/20 15:00 03/01/20 14:59 02/01/20 09:05 Aspirin (Aspirin Ec) 81 mg DAILY PO 02/01/20 09:00 03/02/20 08:59 02/01/20 09:21 Acetaminophen (Tylenol) 1,000 mg Q6H PRN PO pain or fever 01/31/20 16:00 03/01/20 15:59 Pantoprazole Sodium (Protonix) 40 mg DAILY PO 02/01/20 09:00 03/02/20 08:59 02/01/20 09:21 Morphine Sulfate (Morphine Sulfate) 2 mg Q4H PRN IV PAIN SEVER 01/31/20 16:00 03/01/20 15:59 Albuterol Sulfate (Ventolin) 2.5 mg RTQ2 PRN IH SHORTNESS OF BREATH 01/31/20 16:00 01/31/20 17:00 DC Ipratropium Mays (Atrovent) 0.5 mg RTQ2 PRN IH SHORTNESS OF BREATH 01/31/20 16:00 01/31/20 17:00 DC Insulin Human Lispro (Humalog) 0-140 0 Units 141-200... ACHS SQ 01/31/20 17:30 03/01/20 17:29 02/01/20 12:45 Albuterol Sulfate (Ventolin) 2.5 mg RTQ4 IH 01/31/20 17:00 01/31/20 17:00 DC Ipratropium Mays (Atrovent) 0.5 mg Q4 IH 01/31/20 16:00 01/31/20 17:00 DC Guaifenesin (Mucinex) 600 mg BID PO 01/31/20 21:00 03/01/20 20:59 02/01/20 09:21 Methylprednisolone Sodium Succinate (Solu-Medrol) 60 mg Q8HR IV 01/31/20 22:00 02/01/20 13:31 DC 02/01/20 05:19 Azithromycin 500 mg/Sodium Chloride 250 ml @ 175 mls/hr Q24HRS IV 02/01/20 10:30 03/02/20 10:29 02/01/20 11:18 Ondansetron HCl (Zofran) 4 mg Q4H PRN IV NAUSEA / VOMITING 01/31/20 16:00 03/01/20 15:59 Albuterol/ Ipratropium (Combivent Respimat 20-100 Mcg) 1 inh RTQ4 IH 01/31/20 17:00 03/01/20 16:59 02/01/20 13:00 Albuterol/ Ipratropium (Combivent Respimat 20-100 Mcg) 1 inh RTQ2 PRN IH SHORTNESS OF BREATH 01/31/20 17:00 03/01/20 16:59 Amitriptyline HCl (Elavil) 50 mg HS PO 01/31/20 21:00 03/01/20 20:59 01/31/20 21:07 Atorvastatin Calcium (Lipitor) 40 mg HS PO 01/31/20 21:00 03/01/20 20:59 01/31/20 21:08 Clopidogrel Bisulfate (Plavix) 75 mg DAILY PO 02/01/20 09:00 03/02/20 08:59 02/01/20 09:20 Lisinopril (Zestril) 2.5 mg DAILY PO 02/01/20 09:00 03/02/20 08:59 02/01/20 09:20 Morphine Sulfate (Ms Contin) 15 mg BID PO 01/31/20 21:00 03/01/20 20:59 02/01/20 09:20 Insulin Glargine (Lantus) 25 unit ACB SQ 02/01/20 06:30 02/01/20 13:31 DC 02/01/20 06:48 Ceftriaxone Sodium 1000 mg/ Sodium Chloride 100 ml @ 100 mls/hr Q24HRS IV 01/31/20 17:30 03/01/20 17:29 01/31/20 17:45 Lactobacillus Acidophilus (Bacid) 1 each TIDM PO 01/31/20 18:00 03/01/20 17:59 02/01/20 12:40 Budesonide/ Formoterol Fumarate (Symbicort 160-4.5 Mcg Inhaler) 2 inh BID IH 01/31/20 21:00 03/01/20 20:59 02/01/20 09:00 Methylprednisolone Sodium Succinate (Solu-Medrol) 125 mg STK-MED ONCE .ROUTE 01/31/20 20:23 01/31/20 20:26 DC Sodium Chloride 1,000 ml @ ud STK-MED ONCE .ROUTE 01/31/20 21:14 01/31/20 21:16 DC Furosemide (Lasix) 40 mg BID IV 02/01/20 09:00 03/02/20 08:59 02/01/20 09:20 Insulin Glargine (Lantus) 30 unit ACB SQ 02/01/20 13:30 02/01/20 13:41 DC Methylprednisolone Sodium Succinate (Solu-Medrol) 40 mg TID IV 02/01/20 15:00 03/02/20 14:59 02/01/20 15:15 Insulin Glargine (Lantus) 30 unit ACB SQ 02/02/20 06:30 03/03/20 06:29 Course Sepsis Screening Results: Posi: POSITIVE Sepsis Qualifier/Stage: SEPSIS RISK Duration or Total Time Spent w: 15 Vitals & review Data Vital Sign - Last 24 Hours 01/31/20 01/31/20 01/31/20 01/31/20 20:45 21:00 21:08 21:15 Pulse 54 52 57 Resp 18 16 16 B/P (MAP) 129/46 (73) 125/46 (72) 136/66 141/57 (85) Pulse Ox 92 92 90 01/31/20 01/31/20 01/31/20 01/31/20 21:30 21:45 22:00 22:12 Pulse 61 65 53 55 Resp 12 14 19 20 B/P (MAP) 136/60 (85) 136/40 (72) 119/63 (81) Pulse Ox 90 90 94 93 O2 Delivery Comfort Best O2 Flow Rate 40.00 FiO2 45 01/31/20 01/31/20 01/31/20 01/31/20 22:12 22:15 22:30 22:45 Pulse 55 54 61 53 Resp 20 14 20 22 B/P (MAP) 136/53 (80) 149/49 (82) 154/71 (98) Pulse Ox 93 93 91 97 01/31/20 01/31/20 01/31/20 01/31/20 23:00 23:00 23:15 23:30 Pulse 53 53 54 Resp 15 11 12 B/P (MAP) 146/59 (88) 131/58 (82) 137/58 (84) Pulse Ox 96 93 97 O2 Delivery Comfort Best O2 Flow Rate 30.00 01/31/20 02/01/20 02/01/20 02/01/20 23:45 00:00 00:15 00:30 Pulse 54 52 52 53 Resp 18 19 22 20 B/P (MAP) 136/78 (97) 134/56 (82) 146/51 (82) 141/56 (84) Pulse Ox 98 96 98 99 9/2902/01/20 02/01/20 02/01/20 00:45 01:00 01:15 01:30 Pulse 53 54 56 66 Resp 16 14 20 24 B/P (MAP) 145/54 (84) 152/46 (81) 145/57 (86) 144/56 (85) Pulse Ox 96 96 99 99 02/01/20 02/01/20 02/01/20 02/01/20 01:45 01:51 02:00 02:15 Pulse 67 56 65 67 Resp 25 20 19 20 B/P (MAP) 149/70 (96) 128/44 (72) 129/56 (80) Pulse Ox 99 99 99 98 02/01/20 02/01/20 02/01/20 02/01/20 02:24 02:30 02:45 02:47 Pulse 71 57 69 Resp 12 14 25 16 B/P (MAP) 159/109 (126) Pulse Ox 96 100 99 O2 Delivery Mask O2 Flow Rate 10.00 02/01/20 02/01/20 02/01/20 02/01/20 02:50 03:00 03:02 03:30 Temp 97.0 Pulse 68 68 68 Resp 15 38 24 B/P (MAP) 125/47 (73) 121/50 (73) Pulse Ox 100 99 100 O2 Delivery Mask O2 Flow Rate 10.00 02/01/20 02/01/20 02/01/20 02/01/20 03:45 04:00 04:01 04:15 Pulse 68 68 68 67 Resp 14 18 15 20 B/P (MAP) 119/62 (81) Pulse Ox 99 99 98 99 02/01/20 02/01/20 02/01/20 02/01/20 04:30 04:45 04:48 05:00 Pulse 67 67 68 69 Resp 22 24 38 20 B/P (MAP) 124/74 (91) Pulse Ox 100 96 99 98 02/01/20 02/01/20 02/01/20 02/01/20 05:15 05:30 05:45 06:00 Pulse 69 71 69 69 Resp 23 20 22 19 Pulse Ox 97 98 97 99 02/01/20 02/01/20 02/01/20 02/01/20 06:02 06:15 07:15 07:30 Pulse 69 70 67 67 Resp 10 15 38 20 B/P (MAP) 134/65 (88) Pulse Ox 97 98 100 99 02/01/20 02/01/20 02/01/20 02/01/20 07:45 08:00 08:00 08:01 Pulse 65 66 67 Resp 8 20 18 B/P (MAP) 146/88 (107) Pulse Ox 99 98 98 O2 Delivery Mask O2 Flow Rate 10.00 02/01/20 02/01/20 02/01/20 02/01/20 08:15 08:30 08:45 09:00 Temp 98.3 Pulse 66 67 66 66 Resp 22 28 19 22 B/P (MAP) 130/63 (85) Pulse Ox 97 99 99 99 02/01/20 02/01/20 02/01/20 02/01/20 09:15 09:20 09:20 09:30 Pulse 72 72 Resp 17 16 B/P (MAP) 134/65 134/65 Pulse Ox 95 92 02/01/20 02/01/20 02/01/20 02/01/20 09:41 09:45 10:00 10:15 Pulse 66 67 72 69 Resp 26 17 12 19 B/P (MAP) 122/44 (70) Pulse Ox 99 98 99 97 O2 Delivery Mask O2 Flow Rate 15.00 FiO2 100 02/01/20 02/01/20 02/01/20 02/01/20 10:30 10:45 11:00 11:15 Pulse 71 69 70 70 Resp 20 22 24 20 B/P (MAP) 120/46 (70) Pulse Ox 97 99 99 100 02/01/20 02/01/20 02/01/20 02/01/20 11:30 11:45 12:00 12:15 Pulse 68 74 71 71 Resp 21 18 22 25 B/P (MAP) 126/75 (92) Pulse Ox 97 98 97 98 02/01/20 02/01/20 02/01/20 02/01/20 12:30 12:30 12:45 13:00 Temp 98.0 Pulse 69 69 72 Resp 24 25 23 B/P (MAP) 131/55 (80) Pulse Ox 98 98 98 O2 Delivery Mask O2 Flow Rate 10.00 02/01/20 02/01/20 02/01/20 02/01/20 13:15 13:30 13:45 13:54 Pulse 55 74 69 68 Resp 23 20 20 21 Pulse Ox 97 90 95 96 O2 Delivery Venturi Mask FiO2 40 02/01/20 02/01/20 02/01/20 02/01/20 13:54 14:00 14:15 14:30 Temp 98.4 Pulse 68 73 69 54 Resp 21 23 24 26 B/P (MAP) 117/49 (71) Pulse Ox 96 97 97 95 02/01/20 02/01/20 15:09 17:49 Pulse 66 Resp 26 Pulse Ox 96 O2 Delivery Venturi Mask Intake and Output 02/01/20 07:00 Intake Total 2959 ml Output Total 3500 ml Balance -541 ml Laboratory Tests Test 01/31/20 08:41 01/31/20 09:06 01/31/20 09:21 01/31/20 09:46 Blood Gas Sample Site RB Blood Gas pH 7.422 Blood Gas PCO2 26.6 mmHg Blood Gas PO2 69.8 mmHg Blood Gas HCO3 16.9 mmol/L Blood Gas Base Excess -5.9 mmol/L Bk Test N/A Arterial Blood Oxygen Saturation 93.6 % Deoxyhemoglobin 6.2 % Carboxyhemoglobin 2.4 % Methemoglobin 0.1 % Total Hemoglobin 13.5 % Total Oxygen Concentration 17.4 % Blood Gas Temperature 37 FiO2 40 % Total Carbon Dioxide 17.8 mmol/L White Blood Count 14.8 10^3/uL Red Blood Count 4.31 10^6/uL Hemoglobin 13.2 g/dL Hematocrit 39.2 % Mean Corpuscular Volume 91.0 fL Mean Corpuscular Hemoglobin 30.6 pg Mean Corpuscular Hemoglobin Concent 33.7 g/dL Red Cell Distribution Width 14.1 % Platelet Count 286 10^3/uL Mean Platelet Volume 10.3 fL Neutrophils (%) (Auto) 88.5 % Lymphocytes (%) (Auto) 6.4 % Monocytes (%) (Auto) 4.5 % Neutrophils # (Auto) 13.1 10^3/uL Lymphocytes # (Auto) 0.95 10^3/uL1 Monocytes # (Auto) 0.7 10^3/uL Absolute Immature Granulocyte (auto 0.05 10^3 u/L Absolute Eosinophils (auto) 0.0 10^3/uL Immature Granulocytes % 0.30 % Eosinophils % 0.1 % Basophils % 0.2 % Basophils # 0.0 10^3/uL Prothrombin Time 10.7 SEC Prothrombin Time INR (Non-Therap) 1.1 Activated Partial Thromboplast Time 22.7 SEC D-Dimer 0.45 mg/L Sodium Level 124 mmol/L Potassium Level 4.0 mmol/L Chloride Level 91.0 mmol/L Carbon Dioxide Level 20.3 mmol/L Anion Gap 16.7 Blood Urea Nitrogen 14 mg/dL Creatinine 1.20 mg/dL Estimated GFR () 54.9 Est GFR (CKD-EPI)(Non-Afr Iranian) 45.4 BUN/Creatinine Ratio 11.0 Glucose Level 511 mg/dL Lactic Acid Level 2.0 mmol/L Calcium Level 9.6 mg/dL Total Bilirubin 0.9 mg/dL Aspartate Amino Transf (AST/SGOT) 20 U/L Alanine Aminotransferase (ALT/SGPT) 31 U/L Alkaline Phosphatase 106 U/L Total Creatine Kinase 121 U/L Creatine Kinase MB 3.0 ng/mL Troponin I 0.16 ng/mL Pro-B-Type Natriuretic Peptide 6027 pg/mL Total Protein 7.8 g/dL Albumin 3.3 g/dL Globulin 4.5 Albumin/Globulin Ratio 0.733 Acetone, Semi-Quantitative NEGATIVE Helicobacter pylori Screen NEGATIVE Influenza Type A Antigen NEGATIVE Influenza B Immunofluorescence NEGATIVE Differential Total Cells Counted 100 #CELLS Segmented Neutrophils 88 % Band Neutrophils 3 % Lymphocytes 8 % Monocytes 1 % Differential Comment NORMAL Platelet Estimate ADEQUATE Platelet Morphology NORMAL Blood Morphology Comment NORMAL MORPHOLOGY Test 01/31/20 12:15 01/31/20 18:05 01/31/20 20:32 02/01/20 01:57 Lactic Acid Followup at 2 Hours 1.4 mmol/L Total Creatine Kinase 203 U/L 197 U/L Creatine Kinase MB 3.4 ng/mL 3.1 ng/mL Troponin I 0.21 ng/mL 0.16 ng/mL Activated Partial Thromboplast Time 45.5 SEC 45.0 SEC Test 02/01/20 05:23 02/01/20 07:00 02/01/20 07:54 02/01/20 13:10 Bedside Glucose 318 365 White Blood Count 12.4 10^3/uL Red Blood Count 3.78 10^6/uL Hemoglobin 11.8 g/dL Hematocrit 34.6 % Mean Corpuscular Volume 91.5 fL Mean Corpuscular Hemoglobin 31.2 pg Mean Corpuscular Hemoglobin Concent 34.1 g/dL Red Cell Distribution Width 14.1 % Platelet Count 246 10^3/uL Mean Platelet Volume 10.3 fL Neutrophils (%) (Auto) 90.8 % Lymphocytes (%) (Auto) 4.8 % Monocytes (%) (Auto) 4.1 % Neutrophils # (Auto) 11.3 10^3/uL Lymphocytes # (Auto) 0.60 10^3/uL1 Monocytes # (Auto) 0.5 10^3/uL Absolute Immature Granulocyte (auto 0.02 10^3 u/L Absolute Eosinophils (auto) 0.0 10^3/uL Immature Granulocytes % 0.20 % Eosinophils % 0.0 % Basophils % 0.1 % Basophils # 0.0 10^3/uL Activated Partial Thromboplast Time 41.4 SEC 37.4 SEC Fibrinogen 486 mg/dL D-Dimer 0.60 mg/L Sodium Level 130 mmol/L Potassium Level 3.6 mmol/L Chloride Level 97.0 mmol/L Carbon Dioxide Level 25.1 mmol/L Anion Gap 11.5 Blood Urea Nitrogen 16 mg/dL Creatinine 0.89 mg/dL Estimated GFR () 77.5 Est GFR (CKD-EPI)(Non-Afr Iranian) 64.1 BUN/Creatinine Ratio 17.0 Glucose Level 362 mg/dL Hemoglobin A1c 10.8 % Calcium Level 8.8 mg/dL Phosphorus Level 2.9 mg/dL Magnesium Level 1.7 mg/dL Ferritin 181 ng/mL Total Bilirubin 0.5 mg/dL Aspartate Amino Transf (AST/SGOT) 20 U/L Alanine Aminotransferase (ALT/SGPT) 34 U/L Alkaline Phosphatase 83 U/L Lactate Dehydrogenase 158 U/L Total Creatine Kinase 172 U/L Creatine Kinase MB 2.6 ng/mL Troponin I 0.12 ng/mL C-Reactive Protein 10.12 mg/dL Pro-B-Type Natriuretic Peptide 6303 pg/mL Total Protein 7.2 g/dL Albumin 2.9 g/dL Globulin 4.3 Albumin/Globulin Ratio 0.674 Triglycerides Level 108 mg/dL Cholesterol Level 183 mg/dL LDL Cholesterol, Calculated 115.4 VLDL Cholesterol, Calculated 21.6 HDL Cholesterol 46 mg/dL Cholesterol Ratio (LDL/HDL) 2.5 Cholesterol/HDL Ratio 3.558182 Procalcitonin 0.06 ng/mL Thyroid Stimulating Hormone (TSH) 0.204 mIU/mL Test 02/01/20 17:40 02/01/20 17:51 Activated Partial Thromboplast Time 42.4 SEC Bedside Glucose 343 Current Medications Medications (Trade) Dose Ordered Sig/Presley PRN Reason Start Time Stop Time Status Last Admin Acetaminophen (Tylenol) 1,000 mg Q6H PRN pain or fever 01/31/20 16:00 03/01/20 15:59 Albuterol/ Ipratropium (Combivent Respimat 20-100 Mcg) 1 inh RTQ2 PRN SHORTNESS OF BREATH 01/31/20 17:00 03/01/20 16:59 Albuterol/ Ipratropium (Combivent Respimat 20-100 Mcg) 1 inh RTQ4 01/31/20 17:00 03/01/20 16:59 02/01/20 18:44 Amitriptyline HCl (Elavil) 50 mg HS 01/31/20 21:00 03/01/20 20:59 01/31/20 21:07 Aspirin (Aspirin Ec) 81 mg DAILY 02/01/20 09:00 03/02/20 08:59 02/01/20 09:21 Atorvastatin Calcium (Lipitor) 40 mg HS 01/31/20 21:00 03/01/20 20:59 01/31/20 21:08 Azithromycin 500 mg/Sodium Chloride 250 ml @ 175 mls/hr Q24HRS 02/01/20 10:30 03/02/20 10:29 02/01/20 11:18 Budesonide/ Formoterol Fumarate (Symbicort 160-4.5 Mcg Inhaler) 2 inh BID 01/31/20 21:00 03/01/20 20:59 02/01/20 09:00 Ceftriaxone Sodium 1000 mg/ Sodium Chloride 100 ml @ 100 mls/hr Q24HRS 01/31/20 17:30 03/01/20 17:29 02/01/20 17:42 Clopidogrel Bisulfate (Plavix) 75 mg DAILY 02/01/20 09:00 03/02/20 08:59 02/01/20 09:20 Furosemide (Lasix) 40 mg BID 02/01/20 09:00 03/02/20 08:59 02/01/20 09:20 Guaifenesin (Mucinex) 600 mg BID 01/31/20 21:00 03/01/20 20:59 02/01/20 09:21 Heparin Sodium/ Dextrose 500 ml @ 0 mls/hr TITRATE 01/31/20 15:00 03/01/20 14:59 02/01/20 09:05 Insulin Glargine (Lantus) 30 unit ACB 02/02/20 06:30 03/03/20 06:29 Insulin Human Lispro (Humalog) 0-140 0 Units 141-200... ACHS 01/31/20 17:30 03/01/20 17:29 02/01/20 06:10 Lactobacillus Acidophilus (Bacid) 1 each TIDM 01/31/20 18:00 03/01/20 17:59 02/01/20 17:43 Lisinopril (Zestril) 2.5 mg DAILY 02/01/20 09:00 03/02/20 08:59 02/01/20 09:20 Methylprednisolone Sodium Succinate (Solu-Medrol) 40 mg TID 02/01/20 15:00 03/02/20 14:59 02/01/20 15:15 Morphine Sulfate (Morphine Sulfate) 2 mg Q4H PRN PAIN SEVER 01/31/20 16:00 03/01/20 15:59 Morphine Sulfate (Ms Contin) 15 mg BID 01/31/20 21:00 03/01/20 20:59 02/01/20 09:20 Ondansetron HCl (Zofran) 4 mg Q4H PRN NAUSEA / VOMITING 01/31/20 16:00 03/01/20 15:59 Pantoprazole Sodium (Protonix) 40 mg DAILY 02/01/20 09:00 03/02/20 08:59 02/01/20 09:21 LEVEL 1 SEPSIS INFECTION CRITE: Cough/Shortness of Breath LEVEL 2-SIRS (LIST ALL THAT AP: [id number] Hematologic Evidence: None/Not assessed Hepatic Evidence: None/Not assessed Metabolic Evidence: NewSerumGluc>140abs diab Neurological Evidence: None/Not assessed Respiratory Evidence: Need for O2 to keep>90% Renal Evidence: None/Not assessed O2 Sat by Pulse Oximetry: 96 Oxygen Flow Rate: 10.00 Assessment/Plan Assessment/Plan Assessment/Plan ASSESSMENT / PLAN: 1) Acute Hypoxemic Respiratory Failure: Improving. Continue supportive care and monitor closely. COVID-19 test pending. 2) Acute COPD exacerbation with Active Tobacco Abuse: Continue Br Tx's, O2 PRN, Solumedrol, Mucinex, and Symbicort. Pt has been counseled and encouraged to quit smoking. 3) Sepsis: continue Rocephin and Azithromycin empirically likely due to PNA 4) Acute CHF exacerbation: Echo rport pending. Continue Lasix and fluid restriction for now. 5) Elevated TPN: likely due to Sepsis, Respiratory Failure and or NSTEMI. Dr Cisse was consulted, following patient's care and directly card management. Continue Heparin drip for now. 6) HypoNatremia: Likely due to volume overload. Will fluid restrict and check urine studies to be certain. 7) IDDM-2 uncontrolled: Pt is not in DKA. Continue Lantus and Insulin per Correction Scale PRN. HgbA1c. 8) HTN: Currently stable on home meds. 9) Chronic Low Back Pain: Continue Sx pain control PRN. 10) Obesity: Pt has been counseled and encouraged to lead a healthier lifestyle. 11) GI and DVT prophylaxis: Will continue home Protonix and start Heparin. COVID-19 tested negative Cardiology plan of care: Continue diuretics Continue Vance-inh/BIDIL/DAPT/Statin BB on hold due to low running BP LVEF 65-70% on 2d ECHO with Severe TR D/C heparin gtt tomorrow AM Fluid restriction/strict I and O's/Daily weights Continue to treat COPD ex. Correct electrolyte imbalance Will pursue [facility] if covid test is negative and patient becomes euvolemic Plan Continue diuretics Continue Vance-inh/BIDIL/DAPT/Statin BB on hold due to low running BP LVEF 65-70% on 2d ECHO with Severe TR D/C heparin gtt tomorrow AM Fluid restriction/strict I and O's/Daily weights Continue to treat COPD ex. Correct electrolyte imbalance Covid-19 coronavirus test pending Will pursue [facility] if covid test is negative and patient becomes euvolemic ISAAC CONTI MD Feb 01, 2020 20:53
[2020-02-01] MEDS: ELAVIL PO SCH (20:56)
[2020-02-01] MEDS: LIPITOR PO SCH (20:56)
[2020-02-02] VITALS (20 sets, daily range): BP systolic 107–148; BP diastolic 41–90
[2020-02-02] MEDS: COMBIVENT RESPIMAT 20-100 MCG IH SCH ×6 (01:00→21:00)
[2020-02-02 04:21] LABS: BASOPHIL % 0.1 % (0.0-0.2); LYMPHOCYTES # 0.94 10^3/uL1 (1.0-4.8); LYMPHOCYTES % 8.3 % (24.0-44.0); MEAN CORP HGB 31.3 pg (26-34); MONOCYTES # 0.6 10^3/uL (0.3-0.8); MONOCYTES % 5.2 % (5.0-12.0); NEUTROPHIL # 9.7 10^3/uL (1.8-7.7); NEUTROPHILS % 86.2 % (41.0-85.0); PLATELET COUNT 267 10^3/uL (150-400); RED CELL DISTRIBUTION WIDTH 14.2 % (11.5-14.5)
[2020-02-02 04:45] LABS: CARBON DIOXIDE 29.4 mmol/L (20.0-32)
[2020-02-02] MEDS ORDERED: LANTUS SQ ONE (05:19)
[2020-02-02] MEDS: LANTUS SQ SCH (05:49)
--- NOTE | 2020-02-02 06:00 | NUR ---
PENDING SPUTUM CULTURE PATIENT STATED THAT SHE ISN'T COUGHING ANY SPUTUM. SPECIMEN CUP AT BEDSIDE. INSTRUCTED PATIENT ACCORDINGLY.
--- NOTE | 2020-02-02 07:12 | NUR ---
REPORT TO AM SHIFT. ENDORSED PATIENT ACCORDINGLY.
[2020-02-02 08:22] LABS: APPEARANCE,URINE CLEAR (CLEAR); BILIRUBIN,URINE NEGATIVE (NEGATIVE); UA COLOR YELLOW (YELLOW); UROBILINOGEN,URINE NEGATIVE (NEGATIVE)
[2020-02-02] MEDS: SYMBICORT 160-4.5 MCG INHALER IH SCH ×2 (09:00→21:00)
[2020-02-02] MEDS: HUMALOG SQ SCH ×4 (09:21→21:00)
[2020-02-02] MEDS: MUCINEX PO SCH ×2 (09:31→21:01)
[2020-02-02] MEDS: ZESTRIL PO SCH (09:31)
[2020-02-02] MEDS: MS CONTIN PO SCH ×2 (09:32→21:04)
[2020-02-02] MEDS: LASIX IV SCH ×2 (09:32→21:00)
[2020-02-02] MEDS: BACID PO SCH ×3 (09:32→18:00)
[2020-02-02] MEDS: ASPIRIN EC PO SCH (09:32)
[2020-02-02] MEDS: PROTONIX PO SCH (09:32)
[2020-02-02] MEDS: THERA PO SCH (09:32)
[2020-02-02] MEDS: PLAVIX PO SCH (09:32)
[2020-02-02] MEDS: SOLU-MEDROL IV SCH ×3 (09:32→20:59)
[2020-02-02] MEDS: ZITHROMAX 500 MG in NS 250ML 250 ML IV SCH (11:57)
[2020-02-02] MEDS: ROCEPHIN 1,000 MG in NS 100ML 100 ML IV SCH (16:54)
--- NOTE | 2020-02-02 18:50 | NUR ---
REPORT RECEIVED FROM KAREN CLARK RN. ASSUMED PT CARE.
--- NOTE | 2020-02-02 19:22 | PRM.PN ---
Subjective Subjective Date: Feb 02, 2020 Time: 13:30 Subjective Patient is resting comfortably No chest pain, SOB significantly improved Covid-19 test negative Review of Systems Constitutional: No: Fever, Chills, Sweats, Weakness, Malaise Eyes: No: Pain, Vision change, Conjunctivae inflammation, Eyelid inflammation, Redness ENT: No: Ear pain, Ear discharge, Nose pain, Nose discharge, Nose congestion, Mouth pain, Mouth swelling, Throat pain, Throat swelling Respiratory: No: Cough, Dry, Shortness of breath, SOB with excertion, Wheezing, Hemoptysis, Pleuritic Pain, Sputum, Wheezing Cardiovascular: No: Chest Pain, Palpitations, Orthopnea, Paroxysmal Noc. Dyspnea, Edema, Lt Headedness Gastrointestinal: No: Nausea, Vomiting, Abdominal Pain, Diarrhea, Constipation, Melena, Hematochezia Genitourinary: No Dysuria, No Frequency, No Incontinence, No Hematuria, No Retention; Other Musculoskeletal: No: neck pain, shoulder pain, arm pain, back pain, hand pain, leg pain, foot pain Neurological: No: Weakness, Numbness, Incoordination, Change in speech, Confusion, Seizures Allergies: Coded Allergies: codeine (Verified Allergy, Severe, Rash,Itching, Skin Bubbles up and peals off, 07/09/16) Scheduled Amitriptyline Hcl (Amitriptyline Hcl), 1 TAB PO HS, (Reported) Atorvastatin 40MG (Lipitor 40MG), 1 TAB PO HS, (Reported) Budesonide/Formoterol Fumarate (Symbicort 160-4.5 Mcg Inhaler), 2 PUFF IH BID, (Reported) Clopidogrel Bisulfate (Clopidogrel), 1 TAB PO DAILY, (Reported) Gabapentin (Gabapentin), 1 CAP PO TID, (Reported) Gabapentin (Gabapentin), 1 CAP PO TID, (Reported) Insulin Aspart (Insulin Aspart), 0 SQ ACHS, (Reported) Insulin Glargine,Hum.rec.anlog (Lantus Solostar), 25 UNIT SQ ACB, (Reported) Isosorb Dinit/Hydralazine Hcl (Bidil Tablet), 1 EACH PO DAILY24, (Reported) Lisinopril (Lisinopril), 1 TAB PO DAILY, (Reported) Morphine Sulfate (Morphine Sulfate Er), 1 TAB PO BID, (Reported) Multivitamin (Multi Vitamin Daily), 1 EACH PO DAILY, (Reported) Nifedipine (Nifedipine Er), 90 MG PO DAILY24, (Reported) Potassium Chloride (Potassium Chloride), 10 MEQ PO DAILY24, (Reported) Sertraline Hcl (Zoloft), 1 TAB PO DAILY, (Reported) Tizanidine Hcl (Zanaflex), 1 CAP PO HS, (Reported) Discontinued Medications Azilsartan Med/Chlorthalidone (Edarbyclor 40-12.5 Mg Tablet), 1 EACH PO DAILY, (Reported) Discontinued Reason: No Longer Taking Azilsartan Med/Chlorthalidone (Edarbyclor 40-25 Mg Tablet), 1 EACH PO DAILY, (Reported) Discontinued Reason: No Longer Taking Glimepiride (Glimepiride), 1 TAB PO BID, (Reported) Discontinued Reason: No Longer Taking Naproxen (Naproxen), 0.5 TAB PO BID, (Reported) Discontinued Reason: No Longer Taking Objective Vitals and I/O Vital Sign - Last 24 Hours 02/01/20 02/01/20 02/01/20 02/01/20 19:30 19:45 20:00 20:15 Pulse 66 68 68 66 Resp 19 12 17 19 B/P (MAP) 125/50 (75) Pulse Ox 95 96 97 96 02/01/20 02/01/20 02/01/20 02/01/20 20:30 20:45 20:56 21:00 Pulse 67 65 66 Resp 19 23 19 B/P (MAP) 120/64 120/64 (82) Pulse Ox 95 96 94 02/01/20 02/01/20 02/01/20 02/01/20 21:15 21:30 21:45 22:00 Pulse 67 65 64 64 Resp 11 18 18 17 B/P (MAP) 135/66 (89) Pulse Ox 95 95 99 96 02/01/20 02/01/20 02/01/20 02/01/20 22:15 22:24 22:24 22:30 Pulse 64 65 65 65 Resp 18 18 18 22 Pulse Ox 95 96 96 96 O2 Delivery Venturi Mask O2 Flow Rate 12.00 FiO2 35 02/01/20 02/01/20 02/01/20 02/01/20 22:45 23:00 23:00 23:15 Temp 97.0 Pulse 65 69 67 Resp 18 17 24 B/P (MAP) 131/67 (88) Pulse Ox 95 94 96 O2 Delivery Venturi Mask O2 Flow Rate 9.00 02/02/20 02/02/20 02/02/20 02/02/20 00:00 00:15 00:30 00:45 Pulse 70 71 69 70 Resp 23 24 23 24 B/P (MAP) 124/68 (86) Pulse Ox 95 95 97 96 02/02/20 02/02/20 02/02/20 02/02/20 01:00 01:15 01:30 01:45 Pulse 73 71 72 72 Resp 14 18 16 21 B/P (MAP) 132/79 (96) Pulse Ox 97 97 96 97 02/02/20 02/02/20 02/02/20 02/02/20 01:55 02:00 02:15 02:30 Pulse 67 74 76 87 Resp 24 17 15 16 B/P (MAP) 121/54 (76) Pulse Ox 96 98 98 96 02/02/20 02/02/20 02/02/20 02/02/20 02:45 03:00 03:00 03:15 Temp 97.0 Pulse 72 72 72 Resp 14 15 16 B/P (MAP) 127/72 (90) Pulse Ox 96 95 94 O2 Delivery Venturi Mask O2 Flow Rate 9.00 02/02/20 02/02/20 02/02/20 02/02/20 03:30 04:00 04:15 04:30 Pulse 66 64 66 77 Resp 15 15 16 19 B/P (MAP) 124/78 (93) Pulse Ox 94 95 95 96 02/02/20 02/02/20 02/02/20 02/02/20 04:44 04:45 05:00 05:30 Pulse 74 64 67 78 Resp 18 15 15 14 B/P (MAP) 119/52 (74) Pulse Ox 97 95 96 96 02/02/20 02/02/20 02/02/20 02/02/20 05:45 06:00 06:15 06:30 Pulse 82 79 71 75 Resp 17 15 15 20 B/P (MAP) 109/51 (70) Pulse Ox 96 97 96 97 02/02/20 02/02/20 02/02/20 02/02/20 06:45 07:00 07:01 08:00 Pulse 77 80 73 69 Resp 20 18 28 23 B/P (MAP) 126/64 (84) 139/90 (106) Pulse Ox 94 97 98 96 02/02/20 02/02/20 02/02/20 02/02/20 08:00 09:00 09:12 09:13 Temp 97.5 Pulse 81 83 73 Resp 20 18 28 B/P (MAP) 140/73 (95) Pulse Ox 97 97 98 O2 Delivery Nasal Cannula O2 Flow Rate 4.00 FiO2 36 02/02/20 02/02/20 02/02/20 02/02/20 09:31 09:31 09:32 10:00 Pulse 57 Resp 15 B/P (MAP) 125/52 125/52 125/52 (76) Pulse Ox 92 O2 Delivery Nasal Cannula O2 Flow Rate 3.00 02/02/20 02/02/20 02/02/20 02/02/20 11:00 12:00 12:00 15:00 Temp 97.7 Pulse 75 75 81 Resp 24 20 16 B/P (MAP) 113/50 (71) 124/69 (87) 110/72 (85) Pulse Ox 94 94 95 02/02/20 02/02/20 02/02/20 02/02/20 16:00 17:00 17:50 18:00 Temp 97.6 Pulse 72 57 75 58 Resp 15 13 20 20 B/P (MAP) 107/41 (63) 124/51 (75) 128/62 (84) Pulse Ox 94 94 94 95 02/02/20 19:00 Pulse 59 Resp 12 B/P (MAP) 148/63 (91) Pulse Ox 96 Intake and Output 02/02/20 07:00 Intake Total 598 ml Output Total 2300 ml Balance -1702 ml General: Alert, Oriented X3 HEENT: Atraumatic, PERRLA, EOMI Neck: Supple, No JVD, No thyromegaly Lungs: Other Heart: Regular rate, Normal S1, Normal S2 Abdomen: Normal bowel sounds Extremities: No clubbing, No cyanosis Skin: No rashes, No breakdown, No significant lesion Neuro: Normal speech, Sensation intact Psych/Mental Status: Mental status NL, Mood NL All Results(Lab/Rad) Laboratory Tests Test 01/31/20 18:05 01/31/20 20:32 02/01/20 01:57 02/01/20 05:23 Total Creatine Kinase 203 U/L 197 U/L Creatine Kinase MB 3.4 ng/mL 3.1 ng/mL Troponin I 0.21 ng/mL 0.16 ng/mL Activated Partial Thromboplast Time 45.5 SEC 45.0 SEC Bedside Glucose 318 Test 02/01/20 07:00 02/01/20 07:54 02/01/20 13:10 White Blood Count 12.4 10^3/uL Red Blood Count 3.78 10^6/uL Hemoglobin 11.8 g/dL Hematocrit 34.6 % Mean Corpuscular Volume 91.5 fL Mean Corpuscular Hemoglobin 31.2 pg Mean Corpuscular Hemoglobin Concent 34.1 g/dL Red Cell Distribution Width 14.1 % Platelet Count 246 10^3/uL Mean Platelet Volume 10.3 fL Neutrophils (%) (Auto) 90.8 % Lymphocytes (%) (Auto) 4.8 % Monocytes (%) (Auto) 4.1 % Neutrophils # (Auto) 11.3 10^3/uL Lymphocytes # (Auto) 0.60 10^3/uL1 Monocytes # (Auto) 0.5 10^3/uL Absolute Immature Granulocyte (auto 0.02 10^3 u/L Absolute Eosinophils (auto) 0.0 10^3/uL Immature Granulocytes % 0.20 % Eosinophils % 0.0 % Basophils % 0.1 % Basophils # 0.0 10^3/uL Activated Partial Thromboplast Time 41.4 SEC 37.4 SEC Fibrinogen 486 mg/dL D-Dimer 0.60 mg/L Sodium Level 130 mmol/L Potassium Level 3.6 mmol/L Chloride Level 97.0 mmol/L Carbon Dioxide Level 25.1 mmol/L Anion Gap 11.5 Blood Urea Nitrogen 16 mg/dL Creatinine 0.89 mg/dL Estimated GFR () 77.5 Est GFR (CKD-EPI)(Non-Afr [place]ian) 64.1 BUN/Creatinine Ratio 17.0 Glucose Level 362 mg/dL Hemoglobin A1c 10.8 % Calcium Level 8.8 mg/dL Phosphorus Level 2.9 mg/dL Magnesium Level 1.7 mg/dL Ferritin 181 ng/mL Total Bilirubin 0.5 mg/dL Aspartate Amino Transf (AST/SGOT) 20 U/L Alanine Aminotransferase (ALT/SGPT) 34 U/L Alkaline Phosphatase 83 U/L Lactate Dehydrogenase 158 U/L Total Creatine Kinase 172 U/L Creatine Kinase MB 2.6 ng/mL Troponin I 0.12 ng/mL C-Reactive Protein 10.12 mg/dL Pro-B-Type Natriuretic Peptide 6303 pg/mL Total Protein 7.2 g/dL Albumin 2.9 g/dL Globulin 4.3 Albumin/Globulin Ratio 0.674 Triglycerides Level 108 mg/dL Cholesterol Level 183 mg/dL LDL Cholesterol, Calculated 115.4 VLDL Cholesterol, Calculated 21.6 HDL Cholesterol 46 mg/dL Cholesterol Ratio (LDL/HDL) 2.5 Cholesterol/HDL Ratio 3.800650 Procalcitonin 0.06 ng/mL Thyroid Stimulating Hormone (TSH) 0.204 mIU/mL Bedside Glucose 365 Current Medications Medications (Trade) Dose Ordered Sig/Presley Route PRN Reason Start Time Stop Time Status Last Admin Dose Admin Albuterol Sulfate (Ventolin Hfa) 2 inh OT ONCE IH 01/31/20 09:00 01/31/20 12:21 DC 01/31/20 09:21 Sodium Chloride 2,994 ml @ 1,497 mls/hr OT IV 01/31/20 09:00 01/31/20 15:42 DC 01/31/20 09:21 Insulin Human Regular (Humulin R) 10 unit OT ONCE IV 01/31/20 09:00 01/31/20 09:01 DC 01/31/20 09:20 Sodium Chloride 1,000 ml @ ud STK-MED ONCE .ROUTE 01/31/20 08:51 01/31/20 08:53 DC Insulin Human Regular (Humulin R) 1 unit STK-MED ONCE .ROUTE 01/31/20 08:51 01/31/20 08:53 DC Aspirin (Aspirin) 325 mg STAT STAT PO 01/31/20 08:56 01/31/20 12:19 DC 01/31/20 09:20 Nitroglycerin (Nitro-Bid) 1 gm STAT STAT TD 01/31/20 09:36 01/31/20 12:19 DC 01/31/20 09:56 Enoxaparin Sodium (Lovenox) 100 mg BID SQ 01/31/20 21:00 01/31/20 15:28 DC 01/31/20 09:56 Enoxaparin Sodium (Lovenox) 100 mg STK-MED ONCE SQ 01/31/20 09:51 01/31/20 09:53 DC Azithromycin 500 mg/Sodium Chloride 250 ml @ 175 mls/hr STAT ONCE IV 01/31/20 10:30 01/31/20 12:19 DC 01/31/20 10:40 Furosemide (Lasix) 40 mg STAT STAT IV 01/31/20 10:06 01/31/20 12:19 DC 01/31/20 12:30 Sodium Chloride 250 ml @ ud STK-MED ONCE IV 01/31/20 10:27 01/31/20 10:29 DC Furosemide (Lasix) 40 mg STK-MED ONCE .ROUTE 01/31/20 12:21 01/31/20 12:24 DC Furosemide (Lasix) 40 mg STK-MED ONCE .ROUTE 01/31/20 13:21 01/31/20 13:23 DC Furosemide (Lasix) 40 mg BID PO 01/31/20 21:00 01/31/20 21:41 DC 01/31/20 21:08 Heparin Sodium/ Dextrose 500 ml @ ud STK-MED ONCE IV 01/31/20 14:16 01/31/20 14:19 DC Heparin Sodium (Porcine) (Heparin) 5,000 unit STK-MED ONCE .ROUTE 01/31/20 14:17 01/31/20 14:19 DC Heparin Sodium (Porcine) (Heparin) 5,000 unit OT ONCE IV 01/31/20 15:00 01/31/20 16:12 DC 01/31/20 15:31 Heparin Sodium/ Dextrose 500 ml @ 0 mls/hr TITRATE IV 01/31/20 15:00 03/01/20 14:59 02/01/20 09:05 Aspirin (Aspirin Ec) 81 mg DAILY PO 02/01/20 09:00 03/02/20 08:59 02/01/20 09:21 Acetaminophen (Tylenol) 1,000 mg Q6H PRN PO pain or fever 01/31/20 16:00 03/01/20 15:59 Pantoprazole Sodium (Protonix) 40 mg DAILY PO 02/01/20 09:00 03/02/20 08:59 02/01/20 09:21 Morphine Sulfate (Morphine Sulfate) 2 mg Q4H PRN IV PAIN SEVER 01/31/20 16:00 03/01/20 15:59 Albuterol Sulfate (Ventolin) 2.5 mg RTQ2 PRN IH SHORTNESS OF BREATH 01/31/20 16:00 01/31/20 17:00 DC Ipratropium [place] (Atrovent) 0.5 mg RTQ2 PRN IH SHORTNESS OF BREATH 01/31/20 16:00 01/31/20 17:00 DC Insulin Human Lispro (Humalog) 0-140 0 Units 141-200... ACHS SQ 01/31/20 17:30 03/01/20 17:29 02/01/20 12:45 Albuterol Sulfate (Ventolin) 2.5 mg RTQ4 IH 01/31/20 17:00 01/31/20 17:00 DC Ipratropium [place] (Atrovent) 0.5 mg Q4 IH 01/31/20 16:00 01/31/20 17:00 DC Guaifenesin (Mucinex) 600 mg BID PO 01/31/20 21:00 03/01/20 20:59 02/01/20 09:21 Methylprednisolone Sodium Succinate (Solu-Medrol) 60 mg Q8HR IV 01/31/20 22:00 02/01/20 13:31 DC 02/01/20 05:19 Azithromycin 500 mg/Sodium Chloride 250 ml @ 175 mls/hr Q24HRS IV 02/01/20 10:30 03/02/20 10:29 02/01/20 11:18 Ondansetron HCl (Zofran) 4 mg Q4H PRN IV NAUSEA / VOMITING 01/31/20 16:00 03/01/20 15:59 Albuterol/ Ipratropium (Combivent Respimat 20-100 Mcg) 1 inh RTQ4 IH 01/31/20 17:00 03/01/20 16:59 02/01/20 13:00 Albuterol/ Ipratropium (Combivent Respimat 20-100 Mcg) 1 inh RTQ2 PRN IH SHORTNESS OF BREATH 01/31/20 17:00 03/01/20 16:59 Amitriptyline HCl (Elavil) 50 mg HS PO 01/31/20 21:00 03/01/20 20:59 01/31/20 21:07 Atorvastatin Calcium (Lipitor) 40 mg HS PO 01/31/20 21:00 03/01/20 20:59 01/31/20 21:08 Clopidogrel Bisulfate (Plavix) 75 mg DAILY PO 02/01/20 09:00 03/02/20 08:59 02/01/20 09:20 Lisinopril (Zestril) 2.5 mg DAILY PO 02/01/20 09:00 03/02/20 08:59 02/01/20 09:20 Morphine Sulfate (Ms Contin) 15 mg BID PO 01/31/20 21:00 03/01/20 20:59 02/01/20 09:20 Insulin Glargine (Lantus) 25 unit ACB SQ 02/01/20 06:30 02/01/20 13:31 DC 02/01/20 06:48 Ceftriaxone Sodium 1000 mg/ Sodium Chloride 100 ml @ 100 mls/hr Q24HRS IV 01/31/20 17:30 03/01/20 17:29 01/31/20 17:45 Lactobacillus Acidophilus (Bacid) 1 each TIDM PO 01/31/20 18:00 03/01/20 17:59 02/01/20 12:40 Budesonide/ Formoterol Fumarate (Symbicort 160-4.5 Mcg Inhaler) 2 inh BID IH 01/31/20 21:00 03/01/20 20:59 02/01/20 09:00 Methylprednisolone Sodium Succinate (Solu-Medrol) 125 mg STK-MED ONCE .ROUTE 01/31/20 20:23 01/31/20 20:26 DC Sodium Chloride 1,000 ml @ ud STK-MED ONCE .ROUTE 01/31/20 21:14 01/31/20 21:16 DC Furosemide (Lasix) 40 mg BID IV 02/01/20 09:00 03/02/20 08:59 02/01/20 09:20 Insulin Glargine (Lantus) 30 unit ACB SQ 02/01/20 13:30 02/01/20 13:41 DC Methylprednisolone Sodium Succinate (Solu-Medrol) 40 mg TID IV 02/01/20 15:00 03/02/20 14:59 02/01/20 15:15 Insulin Glargine (Lantus) 30 unit ACB SQ 02/02/20 06:30 03/03/20 06:29 Assessment/Plan Assessment/Plan Assessment/Plan 1. Acute decompensated heart failure -- due to diastolic dysfunction. 2. Severe hyponatremia. 3. Severe hyperglycemia. 4. Elevated white blood cell count, highly suspicious for an acute infectious process. 5. Abnormal EKG with ST depressions in the anterolateral leads suggestive of myocardial ischemia. 6. Diabetes mellitus type 2. 7. Hyperlipidemia. 8. Hypertension. 9. Acute chronic obstructive pulmonary disease exacerbation. 10. Known history of peripheral arterial disease. 11. PUI for COVID-19, coronavirus. Plan Patient is euvolemic Continue diuretics Continue Vance-inh/BIDIL/DAPT/Statin Start Metoprolol tartrate 25mg po BID LVEF 65-70% on 2D echo with Severe TR D/C heparin gtt Covid-19 coronavirus test negative Will pursue [facility] tomorrow Keep NPO q MN Further recs post [facility] LLOYD MORGAN DO Feb 02, 2020 19:22
--- NOTE | 2020-02-02 20:26 | PRM.PN ---
Subjective Subjective Date: Feb 02, 2020 Time: 08:40 Subjective Patient is resting comfortably No chest pain, SOB significantly improved Covid-19 test negative Patient History: FH: breast cancer 32 MOTHER, , Age:77 FH: heart attack 32 MOTHER, , Age:77 Glaucoma 19 CHILD Hypertension 32 MOTHER, , Age:77 No known health problems G8 SISTER (1/2 SISTER) 19 CHILD G8 SISTER (1/2 SISTER) Unknown 33 FATHER, Age:84 G8 BROTHER (1/2 BROTHER ), VTE VTE Risk Total Score: >5 VTE Risk Score VTE Risk: Score 0-1 = Low Risk (Aggressive mobilization; early ambulation; no VTE prophylaxis required) Score 2: Moderate Risk (Intermittent/Pneumatic Compression Device OR Lovenox/Heparin/Coumadin) Score 3-4: High Risk (Intermittent/Pneumatic Compression Device AND Lovenox/Heparin/Coumadin) Score > or =5: Highest Risk (Intermittent/Pneumatic Compression Device AND Lovenox/Heparin/Coumadin) Review of Systems Constitutional: No: Fever, Chills, Sweats, Weakness, Malaise Eyes: No: Pain, Vision change, Conjunctivae inflammation, Eyelid inflammation, Redness ENT: No: Ear pain, Ear discharge, Nose pain, Nose discharge, Nose congestion, Mouth pain, Mouth swelling, Throat pain, Throat swelling Respiratory: No: Cough, Dry, Shortness of breath, SOB with excertion, Wheezing, Hemoptysis, Pleuritic Pain, Sputum, Wheezing Cardiovascular: No: Chest Pain, Palpitations, Orthopnea, Paroxysmal Noc. Dyspnea, Edema, Lt Headedness Gastrointestinal: No: Nausea, Vomiting, Abdominal Pain, Diarrhea, Constipation, Melena, Hematochezia Genitourinary: No Dysuria, No Frequency, No Incontinence, No Hematuria, No Retention; Other Musculoskeletal: No: neck pain, shoulder pain, arm pain, back pain, hand pain, leg pain, foot pain Neurological: No: Weakness, Numbness, Incoordination, Change in speech, Confusion, Seizures Allergies: Coded Allergies: codeine (Verified Allergy, Severe, Rash,Itching, Skin Bubbles up and peals off, 07/09/16) Scheduled Amitriptyline Hcl (Amitriptyline Hcl), 1 TAB PO HS, (Reported) Atorvastatin 40MG (Lipitor 40MG), 1 TAB PO HS, (Reported) Budesonide/Formoterol Fumarate (Symbicort 160-4.5 Mcg Inhaler), 2 PUFF IH BID, (Reported) Clopidogrel Bisulfate (Clopidogrel), 1 TAB PO DAILY, (Reported) Gabapentin (Gabapentin), 1 CAP PO TID, (Reported) Gabapentin (Gabapentin), 1 CAP PO TID, (Reported) Insulin Aspart (Insulin Aspart), 0 SQ ACHS, (Reported) Insulin Glargine,Hum.rec.anlog (Lantus Solostar), 25 UNIT SQ ACB, (Reported) Isosorb Dinit/Hydralazine Hcl (Bidil Tablet), 1 EACH PO DAILY24, (Reported) Lisinopril (Lisinopril), 1 TAB PO DAILY, (Reported) Morphine Sulfate (Morphine Sulfate Er), 1 TAB PO BID, (Reported) Multivitamin (Multi Vitamin Daily), 1 EACH PO DAILY, (Reported) Nifedipine (Nifedipine Er), 90 MG PO DAILY24, (Reported) Potassium Chloride (Potassium Chloride), 10 MEQ PO DAILY24, (Reported) Sertraline Hcl (Zoloft), 1 TAB PO DAILY, (Reported) Tizanidine Hcl (Zanaflex), 1 CAP PO HS, (Reported) Discontinued Medications Azilsartan Med/Chlorthalidone (Edarbyclor 40-12.5 Mg Tablet), 1 EACH PO DAILY, (Reported) Discontinued Reason: No Longer Taking Azilsartan Med/Chlorthalidone (Edarbyclor 40-25 Mg Tablet), 1 EACH PO DAILY, (Reported) Discontinued Reason: No Longer Taking Glimepiride (Glimepiride), 1 TAB PO BID, (Reported) Discontinued Reason: No Longer Taking Naproxen (Naproxen), 0.5 TAB PO BID, (Reported) Discontinued Reason: No Longer Taking Objective Vitals and I/O Vital Sign - Last 24 Hours 02/01/20 02/01/20 02/01/20 02/01/20 20:30 20:45 20:56 21:00 Pulse 67 65 66 Resp 19 23 19 B/P (MAP) 120/64 120/64 (82) Pulse Ox 95 96 94 02/01/20 02/01/20 02/01/20 02/01/20 21:15 21:30 21:45 22:00 Pulse 67 65 64 64 Resp 11 18 18 17 B/P (MAP) 135/66 (89) Pulse Ox 95 95 99 96 02/01/20 02/01/20 02/01/20 02/01/20 22:15 22:24 22:24 22:30 Pulse 64 65 65 65 Resp 18 18 18 22 Pulse Ox 95 96 96 96 O2 Delivery Venturi Mask O2 Flow Rate 12.00 FiO2 35 02/01/20 02/01/20 02/01/20 02/01/20 22:45 23:00 23:00 23:15 Temp 97.0 Pulse 65 69 67 Resp 18 17 24 B/P (MAP) 131/67 (88) Pulse Ox 95 94 96 O2 Delivery Venturi Mask O2 Flow Rate 9.00 02/02/20 02/02/20 02/02/20 02/02/20 00:00 00:15 00:30 00:45 Pulse 70 71 69 70 Resp 23 24 23 24 B/P (MAP) 124/68 (86) Pulse Ox 95 95 97 96 02/02/20 02/02/20 02/02/20 02/02/20 01:00 01:15 01:30 01:45 Pulse 73 71 72 72 Resp 14 18 16 21 B/P (MAP) 132/79 (96) Pulse Ox 97 97 96 97 02/02/20 02/02/20 02/02/20 02/02/20 01:55 02:00 02:15 02:30 Pulse 67 74 76 87 Resp 24 17 15 16 B/P (MAP) 121/54 (76) Pulse Ox 96 98 98 96 02/02/20 02/02/20 02/02/20 02/02/20 02:45 03:00 03:00 03:15 Temp 97.0 Pulse 72 72 72 Resp 14 15 16 B/P (MAP) 127/72 (90) Pulse Ox 96 95 94 O2 Delivery Venturi Mask O2 Flow Rate 9.00 02/02/20 02/02/20 02/02/20 02/02/20 03:30 04:00 04:15 04:30 Pulse 66 64 66 77 Resp 15 15 16 19 B/P (MAP) 124/78 (93) Pulse Ox 94 95 95 96 02/02/20 02/02/20 02/02/20 02/02/20 04:44 04:45 05:00 05:30 Pulse 74 64 67 78 Resp 18 15 15 14 B/P (MAP) 119/52 (74) Pulse Ox 97 95 96 96 02/02/20 02/02/20 02/02/20 02/02/20 05:45 06:00 06:15 06:30 Pulse 82 79 71 75 Resp 17 15 15 20 B/P (MAP) 109/51 (70) Pulse Ox 96 97 96 97 02/02/20 02/02/20 02/02/20 02/02/20 06:45 07:00 07:01 08:00 Pulse 77 80 73 69 Resp 20 18 28 23 B/P (MAP) 126/64 (84) 139/90 (106) Pulse Ox 94 97 98 96 02/02/20 02/02/20 02/02/20 02/02/20 08:00 09:00 09:12 09:13 Temp 97.5 Pulse 81 83 73 Resp 20 18 28 B/P (MAP) 140/73 (95) Pulse Ox 97 97 98 O2 Delivery Nasal Cannula O2 Flow Rate 4.00 FiO2 36 02/02/20 02/02/20 02/02/20 02/02/20 09:31 09:31 09:32 10:00 Pulse 57 Resp 15 B/P (MAP) 125/52 125/52 125/52 (76) Pulse Ox 92 O2 Delivery Nasal Cannula O2 Flow Rate 3.00 02/02/20 02/02/20 02/02/20 02/02/20 11:00 12:00 12:00 15:00 Temp 97.7 Pulse 75 75 81 Resp 24 20 16 B/P (MAP) 113/50 (71) 124/69 (87) 110/72 (85) Pulse Ox 94 94 95 02/02/20 02/02/20 02/02/20 02/02/20 16:00 17:00 17:50 18:00 Temp 97.6 Pulse 72 57 75 58 Resp 15 13 20 20 B/P (MAP) 107/41 (63) 124/51 (75) 128/62 (84) Pulse Ox 94 94 94 95 02/02/20 02/02/20 19:00 20:09 Pulse 59 Resp 12 B/P (MAP) 148/63 (91) Pulse Ox 96 O2 Delivery Nasal Cannula O2 Flow Rate 1.00 Intake and Output 02/02/20 07:00 Intake Total 598 ml Output Total 2300 ml Balance -1702 ml General: Alert, Oriented X3 HEENT: Atraumatic, PERRLA, EOMI Neck: Supple, No JVD, No thyromegaly Lungs: Other Heart: Regular rate, Normal S1, Normal S2 Abdomen: Normal bowel sounds Extremities: No clubbing, No cyanosis Skin: No rashes, No breakdown, No significant lesion Neuro: Normal speech, Sensation intact Psych/Mental Status: Mental status NL, Mood NL All Results(Lab/Rad) Laboratory Tests Test 01/31/20 18:05 01/31/20 20:32 02/01/20 01:57 02/01/20 05:23 Total Creatine Kinase 203 U/L 197 U/L Creatine Kinase MB 3.4 ng/mL 3.1 ng/mL Troponin I 0.21 ng/mL 0.16 ng/mL Activated Partial Thromboplast Time 45.5 SEC 45.0 SEC Bedside Glucose 318 Test 02/01/20 07:00 02/01/20 07:54 02/01/20 13:10 White Blood Count 12.4 10^3/uL Red Blood Count 3.78 10^6/uL Hemoglobin 11.8 g/dL Hematocrit 34.6 % Mean Corpuscular Volume 91.5 fL Mean Corpuscular Hemoglobin 31.2 pg Mean Corpuscular Hemoglobin Concent 34.1 g/dL Red Cell Distribution Width 14.1 % Platelet Count 246 10^3/uL Mean Platelet Volume 10.3 fL Neutrophils (%) (Auto) 90.8 % Lymphocytes (%) (Auto) 4.8 % Monocytes (%) (Auto) 4.1 % Neutrophils # (Auto) 11.3 10^3/uL Lymphocytes # (Auto) 0.60 10^3/uL1 Monocytes # (Auto) 0.5 10^3/uL Absolute Immature Granulocyte (auto 0.02 10^3 u/L Absolute Eosinophils (auto) 0.0 10^3/uL Immature Granulocytes % 0.20 % Eosinophils % 0.0 % Basophils % 0.1 % Basophils # 0.0 10^3/uL Activated Partial Thromboplast Time 41.4 SEC 37.4 SEC Fibrinogen 486 mg/dL D-Dimer 0.60 mg/L Sodium Level 130 mmol/L Potassium Level 3.6 mmol/L Chloride Level 97.0 mmol/L Carbon Dioxide Level 25.1 mmol/L Anion Gap 11.5 Blood Urea Nitrogen 16 mg/dL Creatinine 0.89 mg/dL Estimated GFR () 77.5 Est GFR (CKD-EPI)(Non-Afr [place]an) 64.1 BUN/Creatinine Ratio 17.0 Glucose Level 362 mg/dL Hemoglobin A1c 10.8 % Calcium Level 8.8 mg/dL Phosphorus Level 2.9 mg/dL Magnesium Level 1.7 mg/dL Ferritin 181 ng/mL Total Bilirubin 0.5 mg/dL Aspartate Amino Transf (AST/SGOT) 20 U/L Alanine Aminotransferase (ALT/SGPT) 34 U/L Alkaline Phosphatase 83 U/L Lactate Dehydrogenase 158 U/L Total Creatine Kinase 172 U/L Creatine Kinase MB 2.6 ng/mL Troponin I 0.12 ng/mL C-Reactive Protein 10.12 mg/dL Pro-B-Type Natriuretic Peptide 6303 pg/mL Total Protein 7.2 g/dL Albumin 2.9 g/dL Globulin 4.3 Albumin/Globulin Ratio 0.674 Triglycerides Level 108 mg/dL Cholesterol Level 183 mg/dL LDL Cholesterol, Calculated 115.4 VLDL Cholesterol, Calculated 21.6 HDL Cholesterol 46 mg/dL Cholesterol Ratio (LDL/HDL) 2.5 Cholesterol/HDL Ratio [id number] Procalcitonin 0.06 ng/mL Thyroid Stimulating Hormone (TSH) 0.204 mIU/mL Bedside Glucose 365 Current Medications Medications (Trade) Dose Ordered Sig/Presley Route PRN Reason Start Time Stop Time Status Last Admin Dose Admin Albuterol Sulfate (Ventolin Hfa) 2 inh OT ONCE IH 01/31/20 09:00 01/31/20 12:21 DC 01/31/20 09:21 Sodium Chloride 2,994 ml @ 1,497 mls/hr OT IV 01/31/20 09:00 01/31/20 15:42 DC 01/31/20 09:21 Insulin Human Regular (Humulin R) 10 unit OT ONCE IV 01/31/20 09:00 01/31/20 09:01 DC 01/31/20 09:20 Sodium Chloride 1,000 ml @ ud STK-MED ONCE .ROUTE 01/31/20 08:51 01/31/20 08:53 DC Insulin Human Regular (Humulin R) 1 unit STK-MED ONCE .ROUTE 01/31/20 08:51 01/31/20 08:53 DC Aspirin (Aspirin) 325 mg STAT STAT PO 01/31/20 08:56 01/31/20 12:19 DC 01/31/20 09:20 Nitroglycerin (Nitro-Bid) 1 gm STAT STAT TD 01/31/20 09:36 01/31/20 12:19 DC 01/31/20 09:56 Enoxaparin Sodium (Lovenox) 100 mg BID SQ 01/31/20 21:00 01/31/20 15:28 DC 01/31/20 09:56 Enoxaparin Sodium (Lovenox) 100 mg STK-MED ONCE SQ 01/31/20 09:51 01/31/20 09:53 DC Azithromycin 500 mg/Sodium Chloride 250 ml @ 175 mls/hr STAT ONCE IV 01/31/20 10:30 01/31/20 12:19 DC 01/31/20 10:40 Furosemide (Lasix) 40 mg STAT STAT IV 01/31/20 10:06 01/31/20 12:19 DC 01/31/20 12:30 Sodium Chloride 250 ml @ ud STK-MED ONCE IV 01/31/20 10:27 01/31/20 10:29 DC Furosemide (Lasix) 40 mg STK-MED ONCE .ROUTE 01/31/20 12:21 01/31/20 12:24 DC Furosemide (Lasix) 40 mg STK-MED ONCE .ROUTE 01/31/20 13:21 01/31/20 13:23 DC Furosemide (Lasix) 40 mg BID PO 01/31/20 21:00 01/31/20 21:41 DC 01/31/20 21:08 Heparin Sodium/ Dextrose 500 ml @ ud STK-MED ONCE IV 01/31/20 14:16 01/31/20 14:19 DC Heparin Sodium (Porcine) (Heparin) 5,000 unit STK-MED ONCE .ROUTE 01/31/20 14:17 01/31/20 14:19 DC Heparin Sodium (Porcine) (Heparin) 5,000 unit OT ONCE IV 01/31/20 15:00 01/31/20 16:12 DC 01/31/20 15:31 Heparin Sodium/ Dextrose 500 ml @ 0 mls/hr TITRATE IV 01/31/20 15:00 03/01/20 14:59 02/01/20 09:05 Aspirin (Aspirin Ec) 81 mg DAILY PO 02/01/20 09:00 03/02/20 08:59 02/01/20 09:21 Acetaminophen (Tylenol) 1,000 mg Q6H PRN PO pain or fever 01/31/20 16:00 03/01/20 15:59 Pantoprazole Sodium (Protonix) 40 mg DAILY PO 02/01/20 09:00 03/02/20 08:59 02/01/20 09:21 Morphine Sulfate (Morphine Sulfate) 2 mg Q4H PRN IV PAIN SEVER 01/31/20 16:00 03/01/20 15:59 Albuterol Sulfate (Ventolin) 2.5 mg RTQ2 PRN IH SHORTNESS OF BREATH 01/31/20 16:00 01/31/20 17:00 DC Ipratropium [place] (Atrovent) 0.5 mg RTQ2 PRN IH SHORTNESS OF BREATH 01/31/20 16:00 01/31/20 17:00 DC Insulin Human Lispro (Humalog) 0-140 0 Units 141-200... ACHS SQ 01/31/20 17:30 03/01/20 17:29 02/01/20 12:45 Albuterol Sulfate (Ventolin) 2.5 mg RTQ4 IH 01/31/20 17:00 01/31/20 17:00 DC Ipratropium [place] (Atrovent) 0.5 mg Q4 IH 01/31/20 16:00 01/31/20 17:00 DC Guaifenesin (Mucinex) 600 mg BID PO 01/31/20 21:00 03/01/20 20:59 02/01/20 09:21 Methylprednisolone Sodium Succinate (Solu-Medrol) 60 mg Q8HR IV 01/31/20 22:00 02/01/20 13:31 DC 02/01/20 05:19 Azithromycin 500 mg/Sodium Chloride 250 ml @ 175 mls/hr Q24HRS IV 02/01/20 10:30 03/02/20 10:29 02/01/20 11:18 Ondansetron HCl (Zofran) 4 mg Q4H PRN IV NAUSEA / VOMITING 01/31/20 16:00 03/01/20 15:59 Albuterol/ Ipratropium (Combivent Respimat 20-100 Mcg) 1 inh RTQ4 IH 01/31/20 17:00 03/01/20 16:59 02/01/20 13:00 Albuterol/ Ipratropium (Combivent Respimat 20-100 Mcg) 1 inh RTQ2 PRN IH SHORTNESS OF BREATH 01/31/20 17:00 03/01/20 16:59 Amitriptyline HCl (Elavil) 50 mg HS PO 01/31/20 21:00 03/01/20 20:59 01/31/20 21:07 Atorvastatin Calcium (Lipitor) 40 mg HS PO 01/31/20 21:00 03/01/20 20:59 01/31/20 21:08 Clopidogrel Bisulfate (Plavix) 75 mg DAILY PO 02/01/20 09:00 03/02/20 08:59 02/01/20 09:20 Lisinopril (Zestril) 2.5 mg DAILY PO 02/01/20 09:00 03/02/20 08:59 02/01/20 09:20 Morphine Sulfate (Ms Contin) 15 mg BID PO 01/31/20 21:00 03/01/20 20:59 02/01/20 09:20 Insulin Glargine (Lantus) 25 unit ACB SQ 02/01/20 06:30 02/01/20 13:31 DC 02/01/20 06:48 Ceftriaxone Sodium 1000 mg/ Sodium Chloride 100 ml @ 100 mls/hr Q24HRS IV 01/31/20 17:30 03/01/20 17:29 01/31/20 17:45 Lactobacillus Acidophilus (Bacid) 1 each TIDM PO 01/31/20 18:00 03/01/20 17:59 02/01/20 12:40 Budesonide/ Formoterol Fumarate (Symbicort 160-4.5 Mcg Inhaler) 2 inh BID IH 01/31/20 21:00 03/01/20 20:59 02/01/20 09:00 Methylprednisolone Sodium Succinate (Solu-Medrol) 125 mg STK-MED ONCE .ROUTE 01/31/20 20:23 01/31/20 20:26 DC Sodium Chloride 1,000 ml @ ud STK-MED ONCE .ROUTE 01/31/20 21:14 01/31/20 21:16 DC Furosemide (Lasix) 40 mg BID IV 02/01/20 09:00 03/02/20 08:59 02/01/20 09:20 Insulin Glargine (Lantus) 30 unit ACB SQ 02/01/20 13:30 02/01/20 13:41 DC Methylprednisolone Sodium Succinate (Solu-Medrol) 40 mg TID IV 02/01/20 15:00 03/02/20 14:59 02/01/20 15:15 Insulin Glargine (Lantus) 30 unit ACB SQ 02/02/20 06:30 03/03/20 06:29 Course Sepsis Screening Results: Posi: POSITIVE Sepsis Qualifier/Stage: SEPSIS RISK Duration or Total Time Spent w: 15 Vitals & review Data Vital Sign - Last 24 Hours 01/31/20 01/31/20 01/31/20 01/31/20 20:45 21:00 21:08 21:15 Pulse 54 52 57 Resp 18 16 16 B/P (MAP) 129/46 (73) 125/46 (72) 136/66 141/57 (85) Pulse Ox 92 92 90 01/31/20 01/31/20 01/31/20 01/31/20 21:30 21:45 22:00 22:12 Pulse 61 65 53 55 Resp 12 14 19 20 B/P (MAP) 136/60 (85) 136/40 (72) 119/63 (81) Pulse Ox 90 90 94 93 O2 Delivery Comfort Best O2 Flow Rate 40.00 FiO2 45 01/31/20 01/31/20 01/31/20 01/31/20 22:12 22:15 22:30 22:45 Pulse 55 54 61 53 Resp 20 14 20 22 B/P (MAP) 136/53 (80) 149/49 (82) 154/71 (98) Pulse Ox 93 93 91 97 01/31/20 01/31/20 01/31/20 01/31/20 23:00 23:00 23:15 23:30 Pulse 53 53 54 Resp 15 11 12 B/P (MAP) 146/59 (88) 131/58 (82) 137/58 (84) Pulse Ox 96 93 97 O2 Delivery Comfort Best O2 Flow Rate 30.00 01/31/20 02/01/20 02/01/20 02/01/20 23:45 00:00 00:15 00:30 Pulse 54 52 52 53 Resp 18 19 22 20 B/P (MAP) 136/78 (97) 134/56 (82) 146/51 (82) 141/56 (84) Pulse Ox 98 96 98 99 02/01/20 02/01/20 02/01/20 02/01/20 00:45 01:00 01:15 01:30 Pulse 53 54 56 66 Resp 16 14 20 24 B/P (MAP) 145/54 (84) 152/46 (81) 145/57 (86) 144/56 (85) Pulse Ox 96 96 99 99 02/01/20 02/01/20 02/01/20 02/01/20 01:45 01:51 02:00 02:15 Pulse 67 56 65 67 Resp 25 20 19 20 B/P (MAP) 149/70 (96) 128/44 (72) 129/56 (80) Pulse Ox 99 99 99 98 02/01/20 02/01/20 02/01/20 02/01/20 02:24 02:30 02:45 02:47 Pulse 71 57 69 Resp 12 14 25 16 B/P (MAP) 159/109 (126) Pulse Ox 96 100 99 O2 Delivery Mask O2 Flow Rate 10.00 02/01/20 02/01/20 02/01/20 02/01/20 02:50 03:00 03:02 03:30 Temp 97.0 Pulse 68 68 68 Resp 15 38 24 B/P (MAP) 125/47 (73) 121/50 (73) Pulse Ox 100 99 100 O2 Delivery Mask O2 Flow Rate 10.00 02/01/20 02/01/20 02/01/20 02/01/20 03:45 04:00 04:01 04:15 Pulse 68 68 68 67 Resp 14 18 15 20 B/P (MAP) 119/62 (81) Pulse Ox 99 99 98 99 02/01/20 02/01/20 02/01/20 02/01/20 04:30 04:45 04:48 05:00 Pulse 67 67 68 69 Resp 22 24 38 20 B/P (MAP) 124/74 (91) Pulse Ox 100 96 99 98 02/01/20 02/01/20 02/01/20 02/01/20 05:15 05:30 05:45 06:00 Pulse 69 71 69 69 Resp 23 20 22 19 Pulse Ox 97 98 97 99 02/01/20 02/01/20 02/01/20 02/01/20 06:02 06:15 07:15 07:30 Pulse 69 70 67 67 Resp 10 15 38 20 B/P (MAP) 134/65 (88) Pulse Ox 97 98 100 99 02/01/20 02/01/20 02/01/20 02/01/20 07:45 08:00 08:00 08:01 Pulse 65 66 67 Resp 8 20 18 B/P (MAP) 146/88 (107) Pulse Ox 99 98 98 O2 Delivery Mask O2 Flow Rate 10.00 02/01/20 02/01/20 02/01/20 02/01/20 08:15 08:30 08:45 09:00 Temp 98.3 Pulse 66 67 66 66 Resp 22 28 19 22 B/P (MAP) 130/63 (85) Pulse Ox 97 99 99 99 02/01/20 02/01/20 02/01/20 02/01/20 09:15 09:20 09:20 09:30 Pulse 72 72 Resp 17 16 B/P (MAP) 134/65 134/65 Pulse Ox 95 92 02/01/20 02/01/20 02/01/20 02/01/20 09:41 09:45 10:00 10:15 Pulse 66 67 72 69 Resp 26 17 12 19 B/P (MAP) 122/44 (70) Pulse Ox 99 98 99 97 O2 Delivery Mask O2 Flow Rate 15.00 FiO2 100 02/01/20 02/01/20 02/01/20 02/01/20 10:30 10:45 11:00 11:15 Pulse 71 69 70 70 Resp 20 22 24 20 B/P (MAP) 120/46 (70) Pulse Ox 97 99 99 100 02/01/20 02/01/20 02/01/20 02/01/20 11:30 11:45 12:00 12:15 Pulse 68 74 71 71 Resp 21 18 22 25 B/P (MAP) 126/75 (92) Pulse Ox 97 98 97 98 02/01/20 02/01/20 02/01/20 02/01/20 12:30 12:30 12:45 13:00 Temp 98.0 Pulse 69 69 72 Resp 24 25 23 B/P (MAP) 131/55 (80) Pulse Ox 98 98 98 O2 Delivery Mask O2 Flow Rate 10.00 02/01/20 02/01/20 02/01/20 02/01/20 13:15 13:30 13:45 13:54 Pulse 55 74 69 68 Resp Pulse Ox 97 90 95 96 O2 Delivery Venturi Mask FiO2 40 02/01/20 02/01/20 02/01/20 02/01/20 13:54 14:00 14:15 14:30 Temp 98.4 Pulse 68 73 69 54 Resp B/P (MAP) 117/49 (71) Pulse Ox 96 97 97 95 02/01/20 02/01/20 15:09 17:49 Pulse 66 Resp 26 Pulse Ox 96 O2 Delivery Venturi Mask Intake and Output 02/01/20 07:00 Intake Total 2959 ml Output Total 3500 ml Balance -541 ml Laboratory Tests Test 01/31/20 08:41 01/31/20 09:06 01/31/20 09:21 01/31/20 09:46 Blood Gas Sample Site RB Blood Gas pH 7.422 Blood Gas PCO2 26.6 mmHg Blood Gas PO2 69.8 mmHg Blood Gas HCO3 16.9 mmol/L Blood Gas Base Excess -5.9 mmol/L Bk Test N/A Arterial Blood Oxygen Saturation 93.6 % Deoxyhemoglobin 6.2 % Carboxyhemoglobin 2.4 % Methemoglobin 0.1 % Total Hemoglobin 13.5 % Total Oxygen Concentration 17.4 % Blood Gas Temperature 37 FiO2 40 % Total Carbon Dioxide 17.8 mmol/L White Blood Count 14.8 10^3/uL Red Blood Count 4.31 10^6/uL Hemoglobin 13.2 g/dL Hematocrit 39.2 % Mean Corpuscular Volume 91.0 fL Mean Corpuscular Hemoglobin 30.6 pg Mean Corpuscular Hemoglobin Concent 33.7 g/dL Red Cell Distribution Width 14.1 % Platelet Count 286 10^3/uL Mean Platelet Volume 10.3 fL Neutrophils (%) (Auto) 88.5 % Lymphocytes (%) (Auto) 6.4 % Monocytes (%) (Auto) 4.5 % Neutrophils # (Auto) 13.1 10^3/uL Lymphocytes # (Auto) 0.95 10^3/uL1 Monocytes # (Auto) 0.7 10^3/uL Absolute Immature Granulocyte (auto 0.05 10^3 u/L Absolute Eosinophils (auto) 0.0 10^3/uL Immature Granulocytes % 0.30 % Eosinophils % 0.1 % Basophils % 0.2 % Basophils # 0.0 10^3/uL Prothrombin Time 10.7 SEC Prothrombin Time INR (Non-Therap) 1.1 Activated Partial Thromboplast Time 22.7 SEC D-Dimer 0.45 mg/L Sodium Level 124 mmol/L Potassium Level 4.0 mmol/L Chloride Level 91.0 mmol/L Carbon Dioxide Level 20.3 mmol/L Anion Gap 16.7 Blood Urea Nitrogen 14 mg/dL Creatinine 1.20 mg/dL Estimated GFR () 54.9 Est GFR (CKD-EPI)(Non-Afr [place]an) 45.4 BUN/Creatinine Ratio 11.0 Glucose Level 511 mg/dL Lactic Acid Level 2.0 mmol/L Calcium Level 9.6 mg/dL Total Bilirubin 0.9 mg/dL Aspartate Amino Transf (AST/SGOT) 20 U/L Alanine Aminotransferase (ALT/SGPT) 31 U/L Alkaline Phosphatase 106 U/L Total Creatine Kinase 121 U/L Creatine Kinase MB 3.0 ng/mL Troponin I 0.16 ng/mL Pro-B-Type Natriuretic Peptide 6027 pg/mL Total Protein 7.8 g/dL Albumin 3.3 g/dL Globulin 4.5 Albumin/Globulin Ratio 0.733 Acetone, Semi-Quantitative NEGATIVE Helicobacter pylori Screen NEGATIVE Influenza Type A Antigen NEGATIVE Influenza B Immunofluorescence NEGATIVE Differential Total Cells Counted 100 #CELLS Segmented Neutrophils 88 % Band Neutrophils 3 % Lymphocytes 8 % Monocytes 1 % Differential Comment NORMAL Platelet Estimate ADEQUATE Platelet Morphology NORMAL Blood Morphology Comment NORMAL MORPHOLOGY Test 01/31/20 12:15 01/31/20 18:05 01/31/20 20:32 02/01/20 01:57 Lactic Acid Followup at 2 Hours 1.4 mmol/L Total Creatine Kinase 203 U/L 197 U/L Creatine Kinase MB 3.4 ng/mL 3.1 ng/mL Troponin I 0.21 ng/mL 0.16 ng/mL Activated Partial Thromboplast Time 45.5 SEC 45.0 SEC Test 02/01/20 05:23 02/01/20 07:00 02/01/20 07:54 02/01/20 13:10 Bedside Glucose 318 365 White Blood Count 12.4 10^3/uL Red Blood Count 3.78 10^6/uL Hemoglobin 11.8 g/dL Hematocrit 34.6 % Mean Corpuscular Volume 91.5 fL Mean Corpuscular Hemoglobin 31.2 pg Mean Corpuscular Hemoglobin Concent 34.1 g/dL Red Cell Distribution Width 14.1 % Platelet Count 246 10^3/uL Mean Platelet Volume 10.3 fL Neutrophils (%) (Auto) 90.8 % Lymphocytes (%) (Auto) 4.8 % Monocytes (%) (Auto) 4.1 % Neutrophils # (Auto) 11.3 10^3/uL Lymphocytes # (Auto) 0.60 10^3/uL1 Monocytes # (Auto) 0.5 10^3/uL Absolute Immature Granulocyte (auto 0.02 10^3 u/L Absolute Eosinophils (auto) 0.0 10^3/uL Immature Granulocytes % 0.20 % Eosinophils % 0.0 % Basophils % 0.1 % Basophils # 0.0 10^3/uL Activated Partial Thromboplast Time 41.4 SEC 37.4 SEC Fibrinogen 486 mg/dL D-Dimer 0.60 mg/L Sodium Level 130 mmol/L Potassium Level 3.6 mmol/L Chloride Level 97.0 mmol/L Carbon Dioxide Level 25.1 mmol/L Anion Gap 11.5 Blood Urea Nitrogen 16 mg/dL Creatinine 0.89 mg/dL Estimated GFR () 77.5 Est GFR (CKD-EPI)(Non-Afr [place]) 64.1 BUN/Creatinine Ratio 17.0 Glucose Level 362 mg/dL Hemoglobin A1c 10.8 % Calcium Level 8.8 mg/dL Phosphorus Level 2.9 mg/dL Magnesium Level 1.7 mg/dL Ferritin 181 ng/mL Total Bilirubin 0.5 mg/dL Aspartate Amino Transf (AST/SGOT) 20 U/L Alanine Aminotransferase (ALT/SGPT) 34 U/L Alkaline Phosphatase 83 U/L Lactate Dehydrogenase 158 U/L Total Creatine Kinase 172 U/L Creatine Kinase MB 2.6 ng/mL Troponin I 0.12 ng/mL C-Reactive Protein 10.12 mg/dL Pro-B-Type Natriuretic Peptide 6303 pg/mL Total Protein 7.2 g/dL Albumin 2.9 g/dL Globulin 4.3 Albumin/Globulin Ratio 0.674 Triglycerides Level 108 mg/dL Cholesterol Level 183 mg/dL LDL Cholesterol, Calculated 115.4 VLDL Cholesterol, Calculated 21.6 HDL Cholesterol 46 mg/dL Cholesterol Ratio (LDL/HDL) 2.5 Cholesterol/HDL Ratio [id number] Procalcitonin 0.06 ng/mL Thyroid Stimulating Hormone (TSH) 0.204 mIU/mL Test 02/01/20 17:40 02/01/20 17:51 Activated Partial Thromboplast Time 42.4 SEC Bedside Glucose 343 Current Medications Medications (Trade) Dose Ordered Sig/Presley PRN Reason Start Time Stop Time Status Last Admin Acetaminophen (Tylenol) 1,000 mg Q6H PRN pain or fever 01/31/20 16:00 03/01/20 15:59 Albuterol/ Ipratropium (Combivent Respimat 20-100 Mcg) 1 inh RTQ2 PRN SHORTNESS OF BREATH 01/31/20 17:00 03/01/20 16:59 Albuterol/ Ipratropium (Combivent Respimat 20-100 Mcg) 1 inh RTQ4 01/31/20 17:00 03/01/20 16:59 02/01/20 18:44 Amitriptyline HCl (Elavil) 50 mg HS 01/31/20 21:00 03/01/20 20:59 01/31/20 21:07 Aspirin (Aspirin Ec) 81 mg DAILY 02/01/20 09:00 03/02/20 08:59 02/01/20 09:21 Atorvastatin Calcium (Lipitor) 40 mg HS 01/31/20 21:00 03/01/20 20:59 01/31/20 21:08 Azithromycin 500 mg/Sodium Chloride 250 ml @ 175 mls/hr Q24HRS 02/01/20 10:30 03/02/20 10:29 02/01/20 11:18 Budesonide/ Formoterol Fumarate (Symbicort 160-4.5 Mcg Inhaler) 2 inh BID 01/31/20 21:00 03/01/20 20:59 02/01/20 09:00 Ceftriaxone Sodium 1000 mg/ Sodium Chloride 100 ml @ 100 mls/hr Q24HRS 01/31/20 17:30 03/01/20 17:29 02/01/20 17:42 Clopidogrel Bisulfate (Plavix) 75 mg DAILY 02/01/20 09:00 03/02/20 08:59 02/01/20 09:20 Furosemide (Lasix) 40 mg BID 02/01/20 09:00 03/02/20 08:59 02/01/20 09:20 Guaifenesin (Mucinex) 600 mg BID 01/31/20 21:00 03/01/20 20:59 02/01/20 09:21 Heparin Sodium/ Dextrose 500 ml @ 0 mls/hr TITRATE 01/31/20 15:00 03/01/20 14:59 02/01/20 09:05 Insulin Glargine (Lantus) 30 unit ACB 02/02/20 06:30 03/03/20 06:29 Insulin Human Lispro (Humalog) 0-140 0 Units 141-200... ACHS 01/31/20 17:30 03/01/20 17:29 02/01/20 06:10 Lactobacillus Acidophilus (Bacid) 1 each TIDM 01/31/20 18:00 03/01/20 17:59 02/01/20 17:43 Lisinopril (Zestril) 2.5 mg DAILY 02/01/20 09:00 03/02/20 08:59 02/01/20 09:20 Methylprednisolone Sodium Succinate (Solu-Medrol) 40 mg TID 02/01/20 15:00 03/02/20 14:59 02/01/20 15:15 Morphine Sulfate (Morphine Sulfate) 2 mg Q4H PRN PAIN SEVER 01/31/20 16:00 03/01/20 15:59 Morphine Sulfate (Ms Contin) 15 mg BID 01/31/20 21:00 03/01/20 20:59 02/01/20 09:20 Ondansetron HCl (Zofran) 4 mg Q4H PRN NAUSEA / VOMITING 01/31/20 16:00 03/01/20 15:59 Pantoprazole Sodium (Protonix) 40 mg DAILY 02/01/20 09:00 03/02/20 08:59 02/01/20 09:21 LEVEL 1 SEPSIS INFECTION CRITE: ABX Therapy, Cough/Shortness of Breath LEVEL 2-SIRS (LIST ALL THAT AP: [id number] Hematologic Evidence: None/Not assessed Hepatic Evidence: None/Not assessed Metabolic Evidence: NewSerumGluc>140abs diab Neurological Evidence: None/Not assessed Respiratory Evidence: Need for O2 to keep>90%, O2 SAT<90room air Renal Evidence: None/Not assessed O2 Sat by Pulse Oximetry: 96 Oxygen Flow Rate: 1.00 Assessment/Plan Assessment/Plan Assessment/Plan Patient is euvolemic Continue diuretics Continue Vance-inh/BIDIL/DAPT/Statin Start Metoprolol tartrate 25mg po BID LVEF 65-70% on 2D echo with Severe TR D/C heparin gtt Covid-19 coronavirus test negative Will pursue C tomorrow Keep NPO q MN Further recs post LHC Problems: (1) Hyponatremia Status: Acute Assessment & Plan: Improved- likely due to fluid overloa continue monitoring continue diuretics ICD Code: E87.1 - Hypo-osmolality and hyponatremia SNOMED: 66933997 (2) COPD (chronic obstructive pulmonary disease) Status: Acute Assessment & Plan: Improving weaned down oxygen rate to 2L continue with SVN and steroid therapy ICD Code: J44.9 - Chronic obstructive pulmonary disease, unspecified SNOMED: 27251770 (3) CHF (congestive heart failure) Status: Acute Assessment & Plan: Improving continue with current med regimen continue standard therapy Intakes and output. restricted fluid intake 1000cc/day ICD Code: I50.9 - Heart failure, unspecified SNOMED: 15693194 (4) Non-ST elevated myocardial infarction Status: Acute Assessment & Plan: Continue with anticoagulation cardiology following recommended stopping heparin drip continue standard therapy including statins, BB and ACEi ICD Code: I21.4 - Non-ST elevation (NSTEMI) myocardial infarction SNOMED: 68330816 (5) Chest pain Status: Acute Assessment & Plan: Improved ICD Code: R07.9 - Chest pain, unspecified SNOMED: 72432713 (6) PNA (pneumonia) Status: Acute Assessment & Plan: Pending sputum and blood cultures continue IV abx including rocephin and azithr Improving ICD Code: J18.9 - Pneumonia, unspecified organism SNOMED: 196129751 (7) Sepsis Status: Acute Assessment & Plan: Likely due to PNA COntinue iv abx pending cultures ICD Code: A41.9 - Sepsis, unspecified organism SNOMED: 07778844 (8) Acute respiratory failure with hypoxemia Status: Acute Assessment & Plan: Wean off oxygen to 2.5 to 2.0 likely due to lung infection and copd exacer ICD Code: J96.01 - Acute respiratory failure with hypoxia SNOMED: 902360901 Plan Patient is euvolemic Continue diuretics Continue Vance-inh/BIDIL/DAPT/Statin Start Metoprolol tartrate 25mg po BID LVEF 65-70% on 2D echo with Severe TR D/C heparin gtt Covid-19 coronavirus test negative Will pursue LHC tomorrow Keep NPO q MN Further recs post LHC Problem Qualifiers (1) Sepsis: Acute respiratory failure type: with hypoxia Severe sepsis shock status: without septic shock ISAAC CONTI MD Feb 02, 2020 20:26
[2020-02-02] MEDS: LIPITOR PO SCH (21:01)
[2020-02-02] MEDS: LOPRESSER PO SCH (21:03)
[2020-02-02] MEDS: ELAVIL PO SCH (21:08)
--- NOTE | 2020-02-02 21:10 | NUR ---
AMBULATION: PT AMBULATED TO USE TOILET X1 STANDBY ASSIST.
--- NOTE | 2020-02-02 21:18 | NUR ---
REPORT TO AUGUSTO DUQUE RN. PT CARE RELINQUISHED.
--- NOTE | 2020-02-02 21:20 | NUR ---
OFF UNIT: PT TRANSPORTED OFF UNIT WITH ALL PERSONAL BELONGINGS WITH AUGUSTO DUQUE RN VIA WHEELCHAIR.
[2020-02-03] VITALS: BP 142/46
[2020-02-03] MEDS: COMBIVENT RESPIMAT 20-100 MCG IH SCH ×6 (01:00→20:26)
[2020-02-03 04:22] VITALS: BP 157/84
[2020-02-03 05:16] LABS: LYMPHOCYTES # 0.75 10^3/uL1 (1.0-4.8); LYMPHOCYTES % 9.1 % (24.0-44.0); MEAN CORP HGB 31.3 pg (26-34); MONOCYTES # 0.4 10^3/uL (0.3-0.8); MONOCYTES % 5.1 % (5.0-12.0); NEUTROPHILS % 85.6 % (41.0-85.0); PLATELET COUNT 253 10^3/uL (150-400); RED CELL DISTRIBUTION WIDTH 14.1 % (11.5-14.5)
[2020-02-03 05:40] LABS: CARBON DIOXIDE 30.9 mmol/L (20.0-32)
[2020-02-03 05:50] LABS: CALCIUM 9.5 mg/dL (8.4-10.5)
[2020-02-03] MEDS: LANTUS SQ SCH (06:30)
[2020-02-03] MEDS ORDERED: HEPARIN ONE (06:45)
[2020-02-03] MEDS ORDERED: SUBLIMAZE ONE ×2 (06:45→15:50)
[2020-02-03] MEDS ORDERED: XYLOCAINE ONE (06:46)
[2020-02-03] MEDS ORDERED: VERSED ONE ×2 (06:46→15:50)
[2020-02-03] MEDS: HUMALOG SQ SCH ×4 (07:30→21:09)
[2020-02-03] MEDS: MS CONTIN PO SCH ×2 (08:38→21:04)
[2020-02-03] MEDS: THERA PO SCH (08:38)
[2020-02-03] MEDS: ZESTRIL PO SCH (08:38)
[2020-02-03] MEDS: ASPIRIN EC PO SCH (08:38)
[2020-02-03] MEDS: MUCINEX PO SCH ×2 (08:38→21:05)
[2020-02-03] MEDS: PLAVIX PO SCH (08:38)
[2020-02-03] MEDS: BACID PO SCH ×3 (08:38→17:44)
[2020-02-03] MEDS: PROTONIX PO SCH (08:39)
[2020-02-03] MEDS: LASIX IV SCH ×2 (08:39→21:06)
[2020-02-03] MEDS: LOPRESSER PO SCH ×2 (08:39→21:12)
[2020-02-03] MEDS: SOLU-MEDROL IV SCH ×3 (08:39→21:07)
[2020-02-03] MEDS: SYMBICORT 160-4.5 MCG INHALER IH SCH ×2 (08:39→20:26)
[2020-02-03 09:13] VITALS: BP 140/72
[2020-02-03] MEDS ORDERED: NS 1000ML 1,000 ML ONE (10:29)
[2020-02-03] MEDS: ZITHROMAX 500 MG in NS 250ML 250 ML IV SCH (10:30)
[2020-02-03 11:20] VITALS: BP 160/70
--- NOTE | 2020-02-03 14:59 | NUR ---
Pt off unit Pt transferred off unit via stretcher to analytical laboratory technician. No s/s of distress noted.
--- NOTE | 2020-02-03 17:15 | NUR ---
Pt on unit Pt arrived on unit via stretcher from builder's labourer. Received report and assumed care of pt.
[2020-02-03] MEDS: ROCEPHIN 1,000 MG in NS 100ML 100 ML IV SCH (17:30)
[2020-02-03 17:35] VITALS: BP 167/86
--- NOTE | 2020-02-03 18:11 | PRM.PN ---
Subjective Subjective Date: Feb 03, 2020 Time: 11:00 Subjective Patient is seen and examined this morning not in any distress laying on her bed resting comfortably Denies chest pain, SOB significantly improved Covid-19 test negative Patient History: FH: breast cancer 32 MOTHER, , Age:77 FH: heart attack 32 MOTHER, , Age:77 Glaucoma 19 CHILD Hypertension 32 MOTHER, , Age:77 No known health problems G8 SISTER (1/2 SISTER) 19 CHILD G8 SISTER (1/2 SISTER) Unknown 33 FATHER, Age:84 G8 BROTHER (1/2 BROTHER ), VTE VTE Risk Total Score: >5 VTE Risk Score VTE Risk: Score 0-1 = Low Risk (Aggressive mobilization; early ambulation; no VTE prophylaxis required) Score 2: Moderate Risk (Intermittent/Pneumatic Compression Device OR Lovenox/Heparin/Coumadin) Score 3-4: High Risk (Intermittent/Pneumatic Compression Device AND Lovenox/Heparin/Coumadin) Score > or =5: Highest Risk (Intermittent/Pneumatic Compression Device AND Lovenox/Heparin/Coumadin) Review of Systems Constitutional: No: Fever, Chills, Sweats, Weakness, Malaise Eyes: No: Pain, Vision change, Conjunctivae inflammation, Eyelid inflammation, Redness ENT: No: Ear pain, Ear discharge, Nose pain, Nose discharge, Nose congestion, Mouth pain, Mouth swelling, Throat pain, Throat swelling Respiratory: No: Cough, Dry, Shortness of breath, SOB with excertion, Wheezing, Hemoptysis, Pleuritic Pain, Sputum, Wheezing Cardiovascular: No: Chest Pain, Palpitations, Orthopnea, Paroxysmal Noc. Dyspnea, Edema, Lt Headedness Gastrointestinal: No: Nausea, Vomiting, Abdominal Pain, Diarrhea, Constipation, Melena, Hematochezia Genitourinary: No Dysuria, No Frequency, No Incontinence, No Hematuria, No Retention Musculoskeletal: No: neck pain, shoulder pain, arm pain, back pain, hand pain, leg pain, foot pain Neurological: No: Weakness, Numbness, Incoordination, Change in speech, Confusion, Seizures Allergies: Coded Allergies: codeine (Verified Allergy, Severe, Rash,Itching, Skin Bubbles up and peals off, 07/09/16) Scheduled Amitriptyline Hcl (Amitriptyline Hcl), 1 TAB PO HS, (Reported) Atorvastatin 40MG (Lipitor 40MG), 1 TAB PO HS, (Reported) Budesonide/Formoterol Fumarate (Symbicort 160-4.5 Mcg Inhaler), 2 PUFF IH BID, (Reported) Clopidogrel Bisulfate (Clopidogrel), 1 TAB PO DAILY, (Reported) Gabapentin (Gabapentin), 1 CAP PO TID, (Reported) Gabapentin (Gabapentin), 1 CAP PO TID, (Reported) Insulin Aspart (Insulin Aspart), 0 SQ ACHS, (Reported) Insulin Glargine,Hum.rec.anlog (Lantus Solostar), 25 UNIT SQ ACB, (Reported) Isosorb Dinit/Hydralazine Hcl (Bidil Tablet), 1 EACH PO DAILY24, (Reported) Lisinopril (Lisinopril), 1 TAB PO DAILY, (Reported) Morphine Sulfate (Morphine Sulfate Er), 1 TAB PO BID, (Reported) Multivitamin (Multi Vitamin Daily), 1 EACH PO DAILY, (Reported) Nifedipine (Nifedipine Er), 90 MG PO DAILY24, (Reported) Potassium Chloride (Potassium Chloride), 10 MEQ PO DAILY24, (Reported) Sertraline Hcl (Zoloft), 1 TAB PO DAILY, (Reported) Tizanidine Hcl (Zanaflex), 1 CAP PO HS, (Reported) Discontinued Medications Azilsartan Med/Chlorthalidone (Edarbyclor 40-12.5 Mg Tablet), 1 EACH PO DAILY, (Reported) Discontinued Reason: No Longer Taking Azilsartan Med/Chlorthalidone (Edarbyclor 40-25 Mg Tablet), 1 EACH PO DAILY, (Reported) Discontinued Reason: No Longer Taking Glimepiride (Glimepiride), 1 TAB PO BID, (Reported) Discontinued Reason: No Longer Taking Naproxen (Naproxen), 0.5 TAB PO BID, (Reported) Discontinued Reason: No Longer Taking Objective Vitals and I/O Vital Sign - Last 24 Hours 02/02/20 02/02/20 02/02/20 02/02/20 19:00 19:15 19:30 19:45 Pulse 59 82 84 84 Resp 12 34 11 14 B/P (MAP) 148/63 (91) Pulse Ox 96 96 95 96 02/02/20 02/02/20 02/02/20 02/02/20 20:00 20:09 20:15 20:30 Temp 98.3 Pulse 80 81 78 Resp 14 10 B/P (MAP) 130/58 (82) Pulse Ox 97 98 95 O2 Delivery Nasal Cannula O2 Flow Rate 1.00 02/02/20 02/02/20 02/02/20 02/02/20 20:45 21:00 21:00 21:00 Pulse 77 83 79 Resp 13 18 14 B/P (MAP) 129/80 129/80 (96) Pulse Ox 94 96 93 O2 Delivery Nasal Cannula O2 Flow Rate 1.00 FiO2 24 02/02/20 02/02/20 02/02/20 02/03/20 21:00 21:03 21:15 00:00 Temp 97.9 Pulse 83 61 78 89 Resp 18 22 18 B/P (MAP) 129/80 142/46 (78) Pulse Ox 96 95 95 O2 Delivery Nasal Canula O2 Flow Rate 1.00 02/03/20 02/03/20 02/03/20 02/03/20 04:22 05:48 08:38 08:39 Temp 97.8 Pulse 76 76 Resp 18 18 B/P (MAP) 157/84 (108) 157/84 157/84 Pulse Ox 94 94 O2 Delivery Nasal Canula O2 Flow Rate 1.00 02/03/20 02/03/20 02/03/20 02/03/20 08:39 09:13 09:19 09:19 Temp 97.2 Pulse 76 62 56 56 Resp 18 18 20 B/P (MAP) 157/84 140/72 (94) Pulse Ox 95 96 96 O2 Delivery Room Air Room Air 02/03/20 02/03/20 02/03/20 02/03/20 11:20 11:44 14:01 14:01 Temp 98.5 Pulse 62 56 Resp 16 20 21 B/P (MAP) 160/70 (100) Pulse Ox 94 96 87 O2 Delivery Nasal [place] Room Air O2 Flow Rate 1.00 02/03/20 17:35 Temp 98.0 Pulse 61 Resp 18 B/P (MAP) 167/86 (113) Pulse Ox 96 O2 Delivery Nasal Canula O2 Flow Rate 2.00 Intake and Output 02/03/20 07:00 Intake Total 222 ml Output Total 1200 ml Balance -978 ml General: Alert, Oriented X3, Cooperative, No acute distress HEENT: Atraumatic, PERRLA, EOMI, Mucous membr. moist/pink Neck: Supple, No JVD, No thyromegaly, +2 carotid pulse wo bruit Lungs: Clear to auscultation, Normal air movement Heart: Regular rate, Normal S1, Normal S2 Abdomen: Normal bowel sounds, Soft, No tenderness, No hepatospenomegaly Extremities: No clubbing, No cyanosis Skin: No rashes, No breakdown, No significant lesion Neuro: Normal speech, Strength at 5/5 X4 ext, Normal tone, Sensation intact Psych/Mental Status: Mental status NL, Mood NL All Results(Lab/Rad) Laboratory Tests Test 01/31/20 18:05 01/31/20 20:32 02/01/20 01:57 02/01/20 05:23 Total Creatine Kinase 203 U/L 197 U/L Creatine Kinase MB 3.4 ng/mL 3.1 ng/mL Troponin I 0.21 ng/mL 0.16 ng/mL Activated Partial Thromboplast Time 45.5 SEC 45.0 SEC Bedside Glucose 318 Test 02/01/20 07:00 02/01/20 07:54 02/01/20 13:10 White Blood Count 12.4 10^3/uL Red Blood Count 3.78 10^6/uL Hemoglobin 11.8 g/dL Hematocrit 34.6 % Mean Corpuscular Volume 91.5 fL Mean Corpuscular Hemoglobin 31.2 pg Mean Corpuscular Hemoglobin Concent 34.1 g/dL Red Cell Distribution Width 14.1 % Platelet Count 246 10^3/uL Mean Platelet Volume 10.3 fL Neutrophils (%) (Auto) 90.8 % Lymphocytes (%) (Auto) 4.8 % Monocytes (%) (Auto) 4.1 % Neutrophils # (Auto) 11.3 10^3/uL Lymphocytes # (Auto) 0.60 10^3/uL1 Monocytes # (Auto) 0.5 10^3/uL Absolute Immature Granulocyte (auto 0.02 10^3 u/L Absolute Eosinophils (auto) 0.0 10^3/uL Immature Granulocytes % 0.20 % Eosinophils % 0.0 % Basophils % 0.1 % Basophils # 0.0 10^3/uL Activated Partial Thromboplast Time 41.4 SEC 37.4 SEC Fibrinogen 486 mg/dL D-Dimer 0.60 mg/L Sodium Level 130 mmol/L Potassium Level 3.6 mmol/L Chloride Level 97.0 mmol/L Carbon Dioxide Level 25.1 mmol/L Anion Gap 11.5 Blood Urea Nitrogen 16 mg/dL Creatinine 0.89 mg/dL Estimated GFR () 77.5 Est GFR (CKD-EPI)(Non-Afr Citizen Of [place]) 64.1 BUN/Creatinine Ratio 17.0 Glucose Level 362 mg/dL Hemoglobin A1c 10.8 % Calcium Level 8.8 mg/dL Phosphorus Level 2.9 mg/dL Magnesium Level 1.7 mg/dL Ferritin 181 ng/mL Total Bilirubin 0.5 mg/dL Aspartate Amino Transf (AST/SGOT) 20 U/L Alanine Aminotransferase (ALT/SGPT) 34 U/L Alkaline Phosphatase 83 U/L Lactate Dehydrogenase 158 U/L Total Creatine Kinase 172 U/L Creatine Kinase MB 2.6 ng/mL Troponin I 0.12 ng/mL C-Reactive Protein 10.12 mg/dL Pro-B-Type Natriuretic Peptide 6303 pg/mL Total Protein 7.2 g/dL Albumin 2.9 g/dL Globulin 4.3 Albumin/Globulin Ratio 0.674 Triglycerides Level 108 mg/dL Cholesterol Level 183 mg/dL LDL Cholesterol, Calculated 115.4 VLDL Cholesterol, Calculated 21.6 HDL Cholesterol 46 mg/dL Cholesterol Ratio (LDL/HDL) 2.5 Cholesterol/HDL Ratio [id number] Procalcitonin 0.06 ng/mL Thyroid Stimulating Hormone (TSH) 0.204 mIU/mL Bedside Glucose 365 Current Medications Medications (Trade) Dose Ordered Sig/Presley Route PRN Reason Start Time Stop Time Status Last Admin Dose Admin Albuterol Sulfate (Ventolin Hfa) 2 inh OT ONCE IH 01/31/20 09:00 01/31/20 12:21 DC 01/31/20 09:21 Sodium Chloride 2,994 ml @ 1,497 mls/hr OT IV 01/31/20 09:00 01/31/20 15:42 DC 01/31/20 09:21 Insulin Human Regular (Humulin R) 10 unit OT ONCE IV 01/31/20 09:00 01/31/20 09:01 DC 01/31/20 09:20 Sodium Chloride 1,000 ml @ ud STK-MED ONCE .ROUTE 01/31/20 08:51 01/31/20 08:53 DC Insulin Human Regular (Humulin R) 1 unit STK-MED ONCE .ROUTE 01/31/20 08:51 01/31/20 08:53 DC Aspirin (Aspirin) 325 mg STAT STAT PO 01/31/20 08:56 01/31/20 12:19 DC 01/31/20 09:20 Nitroglycerin (Nitro-Bid) 1 gm STAT STAT TD 01/31/20 09:36 01/31/20 12:19 DC 01/31/20 09:56 Enoxaparin Sodium (Lovenox) 100 mg BID SQ 01/31/20 21:00 01/31/20 15:28 DC 01/31/20 09:56 Enoxaparin Sodium (Lovenox) 100 mg STK-MED ONCE SQ 01/31/20 09:51 01/31/20 09:53 DC Azithromycin 500 mg/Sodium Chloride 250 ml @ 175 mls/hr STAT ONCE IV 01/31/20 10:30 01/31/20 12:19 DC 01/31/20 10:40 Furosemide (Lasix) 40 mg STAT STAT IV 01/31/20 10:06 01/31/20 12:19 DC 01/31/20 12:30 Sodium Chloride 250 ml @ ud STK-MED ONCE IV 01/31/20 10:27 01/31/20 10:29 DC Furosemide (Lasix) 40 mg STK-MED ONCE .ROUTE 01/31/20 12:21 01/31/20 12:24 DC Furosemide (Lasix) 40 mg STK-MED ONCE .ROUTE 01/31/20 13:21 01/31/20 13:23 DC Furosemide (Lasix) 40 mg BID PO 01/31/20 21:00 01/31/20 21:41 DC 01/31/20 21:08 Heparin Sodium/ Dextrose 500 ml @ ud STK-MED ONCE IV 01/31/20 14:16 01/31/20 14:19 DC Heparin Sodium (Porcine) (Heparin) 5,000 unit STK-MED ONCE .ROUTE 01/31/20 14:17 01/31/20 14:19 DC Heparin Sodium (Porcine) (Heparin) 5,000 unit OT ONCE IV 01/31/20 15:00 01/31/20 16:12 DC 01/31/20 15:31 Heparin Sodium/ Dextrose 500 ml @ 0 mls/hr TITRATE IV 01/31/20 15:00 03/01/20 14:59 02/01/20 09:05 Aspirin (Aspirin Ec) 81 mg DAILY PO 02/01/20 09:00 03/02/20 08:59 02/01/20 09:21 Acetaminophen (Tylenol) 1,000 mg Q6H PRN PO pain or fever 01/31/20 16:00 03/01/20 15:59 Pantoprazole Sodium (Protonix) 40 mg DAILY PO 02/01/20 09:00 03/02/20 08:59 02/01/20 09:21 Morphine Sulfate (Morphine Sulfate) 2 mg Q4H PRN IV PAIN SEVER 01/31/20 16:00 03/01/20 15:59 Albuterol Sulfate (Ventolin) 2.5 mg RTQ2 PRN IH SHORTNESS OF BREATH 01/31/20 16:00 01/31/20 17:00 DC Ipratropium [place] (Atrovent) 0.5 mg RTQ2 PRN IH SHORTNESS OF BREATH 01/31/20 16:00 01/31/20 17:00 DC Insulin Human Lispro (Humalog) 0-140 0 Units 141-200... ACHS SQ 01/31/20 17:30 03/01/20 17:29 02/01/20 12:45 Albuterol Sulfate (Ventolin) 2.5 mg RTQ4 IH 01/31/20 17:00 01/31/20 17:00 DC Ipratropium [place] (Atrovent) 0.5 mg Q4 IH 01/31/20 16:00 01/31/20 17:00 DC Guaifenesin (Mucinex) 600 mg BID PO 01/31/20 21:00 03/01/20 20:59 02/01/20 09:21 Methylprednisolone Sodium Succinate (Solu-Medrol) 60 mg Q8HR IV 01/31/20 22:00 02/01/20 13:31 DC 02/01/20 05:19 Azithromycin 500 mg/Sodium Chloride 250 ml @ 175 mls/hr Q24HRS IV 02/01/20 10:30 03/02/20 10:29 02/01/20 11:18 Ondansetron HCl (Zofran) 4 mg Q4H PRN IV NAUSEA / VOMITING 01/31/20 16:00 03/01/20 15:59 Albuterol/ Ipratropium (Combivent Respimat 20-100 Mcg) 1 inh RTQ4 IH 01/31/20 17:00 03/01/20 16:59 02/01/20 13:00 Albuterol/ Ipratropium (Combivent Respimat 20-100 Mcg) 1 inh RTQ2 PRN IH SHORTNESS OF BREATH 01/31/20 17:00 03/01/20 16:59 Amitriptyline HCl (Elavil) 50 mg HS PO 01/31/20 21:00 03/01/20 20:59 01/31/20 21:07 Atorvastatin Calcium (Lipitor) 40 mg HS PO 01/31/20 21:00 03/01/20 20:59 01/31/20 21:08 Clopidogrel Bisulfate (Plavix) 75 mg DAILY PO 02/01/20 09:00 03/02/20 08:59 02/01/20 09:20 Lisinopril (Zestril) 2.5 mg DAILY PO 02/01/20 09:00 03/02/20 08:59 02/01/20 09:20 Morphine Sulfate (Ms Contin) 15 mg BID PO 01/31/20 21:00 03/01/20 20:59 02/01/20 09:20 Insulin Glargine (Lantus) 25 unit ACB SQ 02/01/20 06:30 02/01/20 13:31 DC 02/01/20 06:48 Ceftriaxone Sodium 1000 mg/ Sodium Chloride 100 ml @ 100 mls/hr Q24HRS IV 01/31/20 17:30 03/01/20 17:29 01/31/20 17:45 Lactobacillus Acidophilus (Bacid) 1 each TIDM PO 01/31/20 18:00 03/01/20 17:59 02/01/20 12:40 Budesonide/ Formoterol Fumarate (Symbicort 160-4.5 Mcg Inhaler) 2 inh BID IH 01/31/20 21:00 03/01/20 20:59 02/01/20 09:00 Methylprednisolone Sodium Succinate (Solu-Medrol) 125 mg STK-MED ONCE .ROUTE 01/31/20 20:23 01/31/20 20:26 DC Sodium Chloride 1,000 ml @ ud STK-MED ONCE .ROUTE 01/31/20 21:14 01/31/20 21:16 DC Furosemide (Lasix) 40 mg BID IV 02/01/20 09:00 03/02/20 08:59 02/01/20 09:20 Insulin Glargine (Lantus) 30 unit ACB SQ 02/01/20 13:30 02/01/20 13:41 DC Methylprednisolone Sodium Succinate (Solu-Medrol) 40 mg TID IV 02/01/20 15:00 03/02/20 14:59 02/01/20 15:15 Insulin Glargine (Lantus) 30 unit ACB SQ 02/02/20 06:30 03/03/20 06:29 Course Sepsis Screening Results: Posi: POSITIVE Sepsis Qualifier/Stage: SEPSIS RISK Duration or Total Time Spent w: 15 Vitals & review Data Vital Sign - Last 24 Hours 01/31/20 01/31/20 01/31/20 01/31/20 20:45 21:00 21:08 21:15 Pulse 54 52 57 Resp 18 16 16 B/P (MAP) 129/46 (73) 125/46 (72) 136/66 141/57 (85) Pulse Ox 92 92 90 01/31/20 01/31/20 01/31/20 01/31/20 21:30 21:45 22:00 22:12 Pulse 61 65 53 55 Resp 12 14 19 20 B/P (MAP) 136/60 (85) 136/40 (72) 119/63 (81) Pulse Ox 90 90 94 93 O2 Delivery Comfort Best O2 Flow Rate 40.00 FiO2 45 01/31/20 01/31/20 01/31/20 01/31/20 22:12 22:15 22:30 22:45 Pulse 55 54 61 53 Resp 20 14 20 22 B/P (MAP) 136/53 (80) 149/49 (82) 154/71 (98) Pulse Ox 93 93 91 97 01/31/20 01/31/20 01/31/20 01/31/20 23:00 23:00 23:15 23:30 Pulse 53 53 54 Resp 15 11 12 B/P (MAP) 146/59 (88) 131/58 (82) 137/58 (84) Pulse Ox 96 93 97 O2 Delivery Comfort Best O2 Flow Rate 30.00 01/31/20 02/01/20 02/01/20 02/01/20 23:45 00:00 00:15 00:30 Pulse 54 52 52 53 Resp 18 19 22 20 B/P (MAP) 136/78 (97) 134/56 (82) 146/51 (82) 141/56 (84) Pulse Ox 98 96 98 99 02/01/20 02/01/20 02/01/20 02/01/20 00:45 01:00 01:15 01:30 Pulse 53 54 56 66 Resp 16 14 20 24 B/P (MAP) 145/54 (84) 152/46 (81) 145/57 (86) 144/56 (85) Pulse Ox 96 96 99 99 02/01/20 02/01/20 02/01/20 02/01/20 01:45 01:51 02:00 02:15 Pulse 67 56 65 67 Resp 25 20 19 20 B/P (MAP) 149/70 (96) 128/44 (72) 129/56 (80) Pulse Ox 99 99 99 98 02/01/20 02/01/20 02/01/20 02/01/20 02:24 02:30 02:45 02:47 Pulse 71 57 69 Resp 12 14 25 16 B/P (MAP) 159/109 (126) Pulse Ox 96 100 99 O2 Delivery Mask O2 Flow Rate 10.00 02/01/20 02/01/20 02/01/20 02/01/20 02:50 03:00 03:02 03:30 Temp 97.0 Pulse 68 68 68 Resp 15 38 24 B/P (MAP) 125/47 (73) 121/50 (73) Pulse Ox 100 99 100 O2 Delivery Mask O2 Flow Rate 10.00 02/01/20 02/01/20 02/01/20 02/01/20 03:45 04:00 04:01 04:15 Pulse 68 68 68 67 Resp 14 18 15 20 B/P (MAP) 119/62 (81) Pulse Ox 99 99 98 99 02/01/20 02/01/20 02/01/20 02/01/20 04:30 04:45 04:48 05:00 Pulse 67 67 68 69 Resp 22 24 38 20 B/P (MAP) 124/74 (91) Pulse Ox 100 96 99 98 9/02/01/20 02/01/20 02/01/20 05:15 05:30 05:45 06:00 Pulse 69 71 69 69 Resp 23 20 22 19 Pulse Ox 97 98 97 99 02/01/20 02/01/20 02/01/20 02/01/20 06:02 06:15 07:15 07:30 Pulse 69 70 67 67 Resp 10 15 38 20 B/P (MAP) 134/65 (88) Pulse Ox 97 98 100 99 02/01/20 02/01/20 02/01/20 02/01/20 07:45 08:00 08:00 08:01 Pulse 65 66 67 Resp 8 20 18 B/P (MAP) 146/88 (107) Pulse Ox 99 98 98 O2 Delivery Mask O2 Flow Rate 10.00 02/01/20 02/01/20 02/01/20 02/01/20 08:15 08:30 08:45 09:00 Temp 98.3 Pulse 66 67 66 66 Resp 22 28 19 22 B/P (MAP) 130/63 (85) Pulse Ox 97 99 99 99 02/01/20 02/01/20 02/01/20 02/01/20 09:15 09:20 09:20 09:30 Pulse 72 72 Resp 17 16 B/P (MAP) 134/65 134/65 Pulse Ox 95 92 02/01/20 02/01/20 02/01/20 02/01/20 09:41 09:45 10:00 10:15 Pulse 66 67 72 69 Resp 26 17 12 19 B/P (MAP) 122/44 (70) Pulse Ox 99 98 99 97 O2 Delivery Mask O2 Flow Rate 15.00 FiO2 100 02/01/20 02/01/20 02/01/20 02/01/20 10:30 10:45 11:00 11:15 Pulse 71 69 70 70 Resp 20 22 24 20 B/P (MAP) 120/46 (70) Pulse Ox 97 99 99 100 02/01/20 02/01/20 02/01/20 02/01/20 11:30 11:45 12:00 12:15 Pulse 68 74 71 71 Resp 21 18 22 25 B/P (MAP) 126/75 (92) Pulse Ox 97 98 97 98 02/01/20 02/01/20 02/01/20 02/01/20 12:30 12:30 12:45 13:00 Temp 98.0 Pulse 69 69 72 Resp 24 25 23 B/P (MAP) 131/55 (80) Pulse Ox 98 98 98 O2 Delivery Mask O2 Flow Rate 10.00 02/01/20 02/01/20 02/01/20 02/01/20 13:15 13:30 13:45 13:54 Pulse 55 74 69 68 Resp 23 20 20 21 Pulse Ox 97 90 95 96 O2 Delivery Venturi Mask FiO2 40 02/01/20 02/01/20 02/01/20 02/01/20 13:54 14:00 14:15 14:30 Temp 98.4 Pulse 68 73 69 54 Resp 21 23 24 26 B/P (MAP) 117/49 (71) Pulse Ox 96 97 97 95 02/01/20 02/01/20 15:09 17:49 Pulse 66 Resp 26 Pulse Ox 96 O2 Delivery Venturi Mask Intake and Output 02/01/20 07:00 Intake Total 2959 ml Output Total 3500 ml Balance -541 ml Laboratory Tests Test 01/31/20 08:41 01/31/20 09:06 01/31/20 09:21 01/31/20 09:46 Blood Gas Sample Site RB Blood Gas pH 7.422 Blood Gas PCO2 26.6 mmHg Blood Gas PO2 69.8 mmHg Blood Gas HCO3 16.9 mmol/L Blood Gas Base Excess -5.9 mmol/L Bk Test N/A Arterial Blood Oxygen Saturation 93.6 % Deoxyhemoglobin 6.2 % Carboxyhemoglobin 2.4 % Methemoglobin 0.1 % Total Hemoglobin 13.5 % Total Oxygen Concentration 17.4 % Blood Gas Temperature 37 FiO2 40 % Total Carbon Dioxide 17.8 mmol/L White Blood Count 14.8 10^3/uL Red Blood Count 4.31 10^6/uL Hemoglobin 13.2 g/dL Hematocrit 39.2 % Mean Corpuscular Volume 91.0 fL Mean Corpuscular Hemoglobin 30.6 pg Mean Corpuscular Hemoglobin Concent 33.7 g/dL Red Cell Distribution Width 14.1 % Platelet Count 286 10^3/uL Mean Platelet Volume 10.3 fL Neutrophils (%) (Auto) 88.5 % Lymphocytes (%) (Auto) 6.4 % Monocytes (%) (Auto) 4.5 % Neutrophils # (Auto) 13.1 10^3/uL Lymphocytes # (Auto) 0.95 10^3/uL1 Monocytes # (Auto) 0.7 10^3/uL Absolute Immature Granulocyte (auto 0.05 10^3 u/L Absolute Eosinophils (auto) 0.0 10^3/uL Immature Granulocytes % 0.30 % Eosinophils % 0.1 % Basophils % 0.2 % Basophils # 0.0 10^3/uL Prothrombin Time 10.7 SEC Prothrombin Time INR (Non-Therap) 1.1 Activated Partial Thromboplast Time 22.7 SEC D-Dimer 0.45 mg/L Sodium Level 124 mmol/L Potassium Level 4.0 mmol/L Chloride Level 91.0 mmol/L Carbon Dioxide Level 20.3 mmol/L Anion Gap 16.7 Blood Urea Nitrogen 14 mg/dL Creatinine 1.20 mg/dL Estimated GFR () 54.9 Est GFR (CKD-EPI)(Non-Afr Citizen Of [place]) 45.4 BUN/Creatinine Ratio 11.0 Glucose Level 511 mg/dL Lactic Acid Level 2.0 mmol/L Calcium Level 9.6 mg/dL Total Bilirubin 0.9 mg/dL Aspartate Amino Transf (AST/SGOT) 20 U/L Alanine Aminotransferase (ALT/SGPT) 31 U/L Alkaline Phosphatase 106 U/L Total Creatine Kinase 121 U/L Creatine Kinase MB 3.0 ng/mL Troponin I 0.16 ng/mL Pro-B-Type Natriuretic Peptide 6027 pg/mL Total Protein 7.8 g/dL Albumin 3.3 g/dL Globulin 4.5 Albumin/Globulin Ratio 0.733 Acetone, Semi-Quantitative NEGATIVE Helicobacter pylori Screen NEGATIVE Influenza Type A Antigen NEGATIVE Influenza B Immunofluorescence NEGATIVE Differential Total Cells Counted 100 #CELLS Segmented Neutrophils 88 % Band Neutrophils 3 % Lymphocytes 8 % Monocytes 1 % Differential Comment NORMAL Platelet Estimate ADEQUATE Platelet Morphology NORMAL Blood Morphology Comment NORMAL MORPHOLOGY Test 01/31/20 12:15 01/31/20 18:05 01/31/20 20:32 02/01/20 01:57 Lactic Acid Followup at 2 Hours 1.4 mmol/L Total Creatine Kinase 203 U/L 197 U/L Creatine Kinase MB 3.4 ng/mL 3.1 ng/mL Troponin I 0.21 ng/mL 0.16 ng/mL Activated Partial Thromboplast Time 45.5 SEC 45.0 SEC Test 02/01/20 05:23 9/29/20 07:00 02/01/20 07:54 02/01/20 13:10 Bedside Glucose 318 365 White Blood Count 12.4 10^3/uL Red Blood Count 3.78 10^6/uL Hemoglobin 11.8 g/dL Hematocrit 34.6 % Mean Corpuscular Volume 91.5 fL Mean Corpuscular Hemoglobin 31.2 pg Mean Corpuscular Hemoglobin Concent 34.1 g/dL Red Cell Distribution Width 14.1 % Platelet Count 246 10^3/uL Mean Platelet Volume 10.3 fL Neutrophils (%) (Auto) 90.8 % Lymphocytes (%) (Auto) 4.8 % Monocytes (%) (Auto) 4.1 % Neutrophils # (Auto) 11.3 10^3/uL Lymphocytes # (Auto) 0.60 10^3/uL1 Monocytes # (Auto) 0.5 10^3/uL Absolute Immature Granulocyte (auto 0.02 10^3 u/L Absolute Eosinophils (auto) 0.0 10^3/uL Immature Granulocytes % 0.20 % Eosinophils % 0.0 % Basophils % 0.1 % Basophils # 0.0 10^3/uL Activated Partial Thromboplast Time 41.4 SEC 37.4 SEC Fibrinogen 486 mg/dL D-Dimer 0.60 mg/L Sodium Level 130 mmol/L Potassium Level 3.6 mmol/L Chloride Level 97.0 mmol/L Carbon Dioxide Level 25.1 mmol/L Anion Gap 11.5 Blood Urea Nitrogen 16 mg/dL Creatinine 0.89 mg/dL Estimated GFR () 77.5 Est GFR (CKD-EPI)(Non-Afr Citizen Of [place]) 64.1 BUN/Creatinine Ratio 17.0 Glucose Level 362 mg/dL Hemoglobin A1c 10.8 % Calcium Level 8.8 mg/dL Phosphorus Level 2.9 mg/dL Magnesium Level 1.7 mg/dL Ferritin 181 ng/mL Total Bilirubin 0.5 mg/dL Aspartate Amino Transf (AST/SGOT) 20 U/L Alanine Aminotransferase (ALT/SGPT) 34 U/L Alkaline Phosphatase 83 U/L Lactate Dehydrogenase 158 U/L Total Creatine Kinase 172 U/L Creatine Kinase MB 2.6 ng/mL Troponin I 0.12 ng/mL C-Reactive Protein 10.12 mg/dL Pro-B-Type Natriuretic Peptide 6303 pg/mL Total Protein 7.2 g/dL Albumin 2.9 g/dL Globulin 4.3 Albumin/Globulin Ratio 0.674 Triglycerides Level 108 mg/dL Cholesterol Level 183 mg/dL LDL Cholesterol, Calculated 115.4 VLDL Cholesterol, Calculated 21.6 HDL Cholesterol 46 mg/dL Cholesterol Ratio (LDL/HDL) 2.5 Cholesterol/HDL Ratio 3.319567 Procalcitonin 0.06 ng/mL Thyroid Stimulating Hormone (TSH) 0.204 mIU/mL Test 02/01/20 17:40 02/01/20 17:51 Activated Partial Thromboplast Time 42.4 SEC Bedside Glucose 343 Current Medications Medications (Trade) Dose Ordered Sig/Presley PRN Reason Start Time Stop Time Status Last Admin Acetaminophen (Tylenol) 1,000 mg Q6H PRN pain or fever 01/31/20 16:00 03/01/20 15:59 Albuterol/ Ipratropium (Combivent Respimat 20-100 Mcg) 1 inh RTQ2 PRN SHORTNESS OF BREATH 01/31/20 17:00 03/01/20 16:59 Albuterol/ Ipratropium (Combivent Respimat 20-100 Mcg) 1 inh RTQ4 01/31/20 17:00 03/01/20 16:59 02/01/20 18:44 Amitriptyline HCl (Elavil) 50 mg HS 01/31/20 21:00 03/01/20 20:59 01/31/20 21:07 Aspirin (Aspirin Ec) 81 mg DAILY 02/01/20 09:00 03/02/20 08:59 02/01/20 09:21 Atorvastatin Calcium (Lipitor) 40 mg HS 01/31/20 21:00 03/01/20 20:59 01/31/20 21:08 Azithromycin 500 mg/Sodium Chloride 250 ml @ 175 mls/hr Q24HRS 02/01/20 10:30 03/02/20 10:29 02/01/20 11:18 Budesonide/ Formoterol Fumarate (Symbicort 160-4.5 Mcg Inhaler) 2 inh BID 01/31/20 21:00 03/01/20 20:59 02/01/20 09:00 Ceftriaxone Sodium 1000 mg/ Sodium Chloride 100 ml @ 100 mls/hr Q24HRS 01/31/20 17:30 03/01/20 17:29 02/01/20 17:42 Clopidogrel Bisulfate (Plavix) 75 mg DAILY 02/01/20 09:00 03/02/20 08:59 02/01/20 09:20 Furosemide (Lasix) 40 mg BID 02/01/20 09:00 03/02/20 08:59 02/01/20 09:20 Guaifenesin (Mucinex) 600 mg BID 01/31/20 21:00 03/01/20 20:59 02/01/20 09:21 Heparin Sodium/ Dextrose 500 ml @ 0 mls/hr TITRATE 01/31/20 15:00 03/01/20 14:59 02/01/20 09:05 Insulin Glargine (Lantus) 30 unit ACB 02/02/20 06:30 03/03/20 06:29 Insulin Human Lispro (Humalog) 0-140 0 Units 141-200... ACHS 01/31/20 17:30 03/01/20 17:29 02/01/20 06:10 Lactobacillus Acidophilus (Bacid) 1 each TIDM 01/31/20 18:00 03/01/20 17:59 02/01/20 17:43 Lisinopril (Zestril) 2.5 mg DAILY 02/01/20 09:00 03/02/20 08:59 02/01/20 09:20 Methylprednisolone Sodium Succinate (Solu-Medrol) 40 mg TID 02/01/20 15:00 03/02/20 14:59 02/01/20 15:15 Morphine Sulfate (Morphine Sulfate) 2 mg Q4H PRN PAIN SEVER 01/31/20 16:00 03/01/20 15:59 Morphine Sulfate (Ms Contin) 15 mg BID 01/31/20 21:00 03/01/20 20:59 02/01/20 09:20 Ondansetron HCl (Zofran) 4 mg Q4H PRN NAUSEA / VOMITING 01/31/20 16:00 03/01/20 15:59 Pantoprazole Sodium (Protonix) 40 mg DAILY 02/01/20 09:00 03/02/20 08:59 02/01/20 09:21 LEVEL 1 SEPSIS INFECTION CRITE: ABX Therapy, Cough/Shortness of Breath LEVEL 2-SIRS (LIST ALL THAT AP: [id number] Hematologic Evidence: None/Not assessed Hepatic Evidence: None/Not assessed Metabolic Evidence: NewSerumGluc>140abs diab Neurological Evidence: None/Not assessed Respiratory Evidence: Need for O2 to keep>90%, O2 SAT<90room air Renal Evidence: None/Not assessed O2 Sat by Pulse Oximetry: 96 Oxygen Flow Rate: 2.00 Assessment/Plan Assessment/Plan Problems: (1) Chest pain Status: Resolved Assessment & Plan: [facility] today: severe bilateral peripheral vascular disease, no access for cath, with poor radi al pulse. will followup with cardiology outpt in 3 weeks ICD Code: R07.9 - Chest pain, unspecified SNOMED: [id number] (2) Hyponatremia Status: Resolved ICD Code: E87.1 - Hypo-osmolality and hyponatremia SNOMED: 25118032 (3) COPD (chronic obstructive pulmonary disease) Status: Acute Assessment & Plan: Continue with SVNs and steroid therapy as well as abx due to underlying lung infection ICD Code: J44.9 - Chronic obstructive pulmonary disease, unspecified SNOMED: 08927599 (4) CHF (congestive heart failure) Status: Chronic ICD Code: I50.9 - Heart failure, unspecified SNOMED: 78530613 (5) Non-ST elevated myocardial infarction Status: Acute ICD Code: I21.4 - Non-ST elevation (NSTEMI) myocardial infarction SNOMED: 49624329 (6) PNA (pneumonia) Status: Acute ICD Code: J18.9 - Pneumonia, unspecified organism SNOMED: 564811741 (7) Sepsis Status: Acute Assessment & Plan: Continue iv abx ICD Code: A41.9 - Sepsis, unspecified organism SNOMED: 97632584 (8) Acute respiratory failure with hypoxemia Status: Resolved ICD Code: J96.01 - Acute respiratory failure with hypoxia SNOMED: [id number] Plan Cardiology A/P Patient is euvolemic Continue diuretics Continue Vance-inh/BIDIL/DAPT/Statin Start Metoprolol tartrate 25mg po BID LVEF 65-70% on 2D echo with Severe TR D/C heparin gtt Covid-19 coronavirus test negative [facility] unable to access due to severe peripheral vascular dx Further recs post [facility] Problem Qualifiers (1) COPD (chronic obstructive pulmonary disease): COPD type: COPD with acute exacerbation Qualified Codes: J44.1 - Chronic obstructive pulmonary disease with (acute) exacerbation (2) Sepsis: Acute respiratory failure type: with hypoxia Severe sepsis shock status: without septic shock ISAAC CONTI MD Feb 03, 2020 18:11
--- NOTE | 2020-02-03 18:43 | [facility] ---
DATE OF SERVICE: 02/03/2020 INDICATION FOR PROCEDURE: This is a 64-year-old female who was initially seen on presentation to the Emergency Room few days ago with acute decompensated heart failure. She was successfully treated and is now currently euvolemic. She was then set up for cardiac catheterization to rule out obstructive CAD. Of note, she had mentioned to me that she has a history of severe bilateral peripheral arterial disease involving the lower extremities with stenting in the past. PROCEDURE IN DETAIL: Informed consents were obtained and the patient was taken to the cardiac catheterization lab for planned left heart catheterization. I initially attempted to gain access using right radial access point. However, the patient was noted to have very weak, nonpalpable radial pulse on the right hand and so I aborted and decided to gain access through the right common femoral artery. I was able to successfully gain access into the right common femoral vein and a 6-Maltese sheath was used to cannulate the right common femoral vein. Multiple attempts to gain access into the right common femoral artery proved abortive. I then attempted to gain access through the left common femoral artery, which also proved abortive. After multiple tries, the procedure was aborted. The patient was taken back to her room without complications. Left heart catheterization was canceled due to inability to gain access in the bilateral common femoral artery due to severe peripheral vascular disease as well as poor circulation in the right radial artery. At this time, I would hold off on left heart catheterization. She has been instructed to follow up with me in the clinic upon discharge. I would set her up for outpatient CT angiography of the abdomen and pelvis with lower extremity runoffs to further delineate her anatomy and evaluate for the extent of peripheral arterial disease. Her PAD may need to be treated first before coronary angiography is performed. She is currently chest pain free. I would recommend to continue with cardiac medications as she is already on. No further cardiac workup is necessary at this time. Central venous line was pulled in the crime lab analyst and bilateral groin was held under manual compression for over 35 minutes. LLOYD MORGAN D.O. : Benjamin JOB# [id number]
[2020-02-03] MEDS: ELAVIL PO SCH (21:00)
[2020-02-03] MEDS ORDERED: ELAVIL ONE (21:01)
[2020-02-03] MEDS: LIPITOR PO SCH (21:04)
[2020-02-04] VITALS: BP 131/88
[2020-02-04] MEDS: COMBIVENT RESPIMAT 20-100 MCG IH SCH ×4 (00:40→12:56)
[2020-02-04 05:09] VITALS: BP 165/81
--- NOTE | 2020-02-04 06:30 | NUR ---
RECEIVED REPORT/ASSUMED CARE OF PATIENT AT THIS TIME
[2020-02-04] MEDS ORDERED: LANTUS SQ SCH (07:30)
[2020-02-04] MEDS: HUMALOG SQ SCH ×2 (07:30→11:30)
--- NOTE | 2020-02-04 08:00 | NUR ---
ALERT/ORIENTEDx3 OU PERRL 1/BRISK LUNG SOUNDS CTA ALL MIRANDA WITH UNLABORED/EVEN/DEEP RESPIRATIONS ON ROOM AIR HEART TONES S1/S2 STRONG/REGULAR WITH CAP REFILL <3 PPPx4 STRONG/= UPPER WEAK/= BLE RE: EDEMA ABD ROTUND/SOFT/NONTENDER WITH ACTIVE BOWEL SOUNDS x4 CONTINENT OF BOWEL/BLADDER (NOT OBSERVED) MAEx4 WITHOUT DIFFICULTY IV ACCESS TO LUE 20g SL WITHOUT S/S OF INFILTRATION OR REDNESS NOTED (FLUSHED WITHOUT DIFFICULTY)
[2020-02-04] MEDS: ZESTRIL PO SCH (08:40)
[2020-02-04] MEDS: BACID PO SCH ×2 (08:41→12:31)
[2020-02-04] MEDS: THERA PO SCH (08:41)
[2020-02-04] MEDS: MUCINEX PO SCH (08:41)
[2020-02-04] MEDS: PROTONIX PO SCH (08:41)
[2020-02-04] MEDS: MS CONTIN PO SCH (08:42)
[2020-02-04] MEDS: LOPRESSER PO SCH (08:42)
[2020-02-04] MEDS: PLAVIX PO SCH (08:42)
[2020-02-04] MEDS: ASPIRIN EC PO SCH (08:43)
[2020-02-04] MEDS: LASIX IV SCH (08:43)
[2020-02-04] MEDS: SOLU-MEDROL IV SCH (08:43)
[2020-02-04] MEDS: SYMBICORT 160-4.5 MCG INHALER IH SCH (09:00)
--- NOTE | 2020-02-04 09:08 | NUR ---
TOLERATED PO MEDICATION AT THIS TIME, IV ACCESS FLUSHED WITHOUT DIFFICULTY
[2020-02-04 11:03] VITALS: BP 148/80
[2020-02-04] MEDS: ZITHROMAX 500 MG in NS 250ML 250 ML IV SCH (11:18)
[2020-02-04 12:13] VITALS: BP 134/110
[2020-02-04] MEDS ORDERED: METO25TA4 PO (12:22)
--- NOTE | 2020-02-04 12:33 | PRM.DC ---
Discharge Summary Date of Discharge: Feb 04, 2020 Time of Request to Discharge: 07:50 Hospital Course Patient is a 64-year-old female with medical history of coronary disease, diab etes mellitus type 2, depression, peripheral vascular disease, who was admitted for severe sepsis without septic shock due to pneumonia. She was also admitted for COPD exacerbation likely due to pneumonia, presented also with chest pain with findings consistent with non-STEMI, hyponatremia and acute respiratory failure. Upon admission the patient was noted to have hyponatremia was started on IV antibiotic and blood cultures were obtained. Cardiology was consulted who came to evaluate patient and followed in directed medical management for heart disease. Patient responded well to medical management including IV antibiotic and breathing treatment for COPD exacerbation and was therefore transferred from ICU after she tested negative for COVID-19 infection. She was transferred to the medical floor and was therefore taken to for Guide [facility] but was unsuccessful due to difficulty to access due to Previous lower extremity stent placement from 2 years ago.Patient was therefore asked to follow-up with cardiology outpatient and also to follow-up with primary physician as soon as possible. Patient was doing well clinically and was taken off oxygen completely during 95% on room air. Patient was therefore planned for discharge and will be discharged on metoprolol 25 mg twice daily. Patient History: FH: breast cancer 32 MOTHER, , Age:77 FH: heart attack 32 MOTHER, , Age:77 Glaucoma 19 CHILD Hypertension 32 MOTHER, , Age:77 No known health problems G8 SISTER (1/2 SISTER) 19 CHILD G8 SISTER (1/2 SISTER) Unknown 33 FATHER, Age:84 G8 BROTHER (1/2 BROTHER ), General: Alert, Oriented X3, Cooperative, No acute distress HEENT: Atraumatic, PERRLA, EOMI, Mucous membr. moist/pink Neck: Supple, No JVD, No thyromegaly, +2 carotid pulse wo bruit Lungs: Clear to auscultation, Normal air movement Heart: Regular rate, Normal S1, Normal S2, No murmurs Abdomen: Normal bowel sounds, Soft, No tenderness, No hepatospenomegaly Extremities: No clubbing, No cyanosis, No edema, Normal pulses Skin: No rashes, No breakdown, No significant lesion Neuro: Normal gait, Normal speech, Strength at 5/5 X4 ext, Sensation intact, Cranial nerves 3-12 NL Psych/Mental Status: Mental status NL, Mood NL Scheduled Amitriptyline Hcl (Amitriptyline Hcl), 1 TAB PO HS, (Reported) Atorvastatin 40MG (Lipitor 40MG), 1 TAB PO HS, (Reported) Budesonide/Formoterol Fumarate (Symbicort 160-4.5 Mcg Inhaler), 2 PUFF IH BID, (Reported) Clopidogrel Bisulfate (Clopidogrel), 1 TAB PO DAILY, (Reported) Gabapentin (Gabapentin), 1 CAP PO TID, (Reported) Gabapentin (Gabapentin), 1 CAP PO TID, (Reported) Insulin Aspart (Insulin Aspart), 0 SQ ACHS, (Reported) Insulin Glargine,Hum.rec.anlog (Lantus Solostar), 25 UNIT SQ ACB, (Reported) Isosorb Dinit/Hydralazine Hcl (Bidil Tablet), 1 EACH PO DAILY24, (Reported) Lisinopril (Lisinopril), 1 TAB PO DAILY, (Reported) Metoprolol Tartrate 25MG (Lopresser 25MG), 25 MG PO BID Morphine Sulfate (Morphine Sulfate Er), 1 TAB PO BID, (Reported) Multivitamin (Multi Vitamin Daily), 1 EACH PO DAILY, (Reported) Nifedipine (Nifedipine Er), 90 MG PO DAILY24, (Reported) Potassium Chloride (Potassium Chloride), 10 MEQ PO DAILY24, (Reported) Sertraline Hcl (Zoloft), 1 TAB PO DAILY, (Reported) Tizanidine Hcl (Zanaflex), 1 CAP PO HS, (Reported) Discontinued Medications Azilsartan Med/Chlorthalidone (Edarbyclor 40-12.5 Mg Tablet), 1 EACH PO DAILY, (Reported) Discontinued Reason: No Longer Taking Azilsartan Med/Chlorthalidone (Edarbyclor 40-25 Mg Tablet), 1 EACH PO DAILY, (Reported) Discontinued Reason: No Longer Taking Glimepiride (Glimepiride), 1 TAB PO BID, (Reported) Discontinued Reason: No Longer Taking Naproxen (Naproxen), 0.5 TAB PO BID, (Reported) Discontinued Reason: No Longer Taking Sepsis Evaluation @ Discharge Vital Sign - Last 24 Hours 01/31/20 01/31/20 01/31/20 01/31/20 20:45 21:00 21:08 21:15 Pulse 54 52 57 Resp 18 16 16 B/P (MAP) 129/46 (73) 125/46 (72) 136/66 141/57 (85) Pulse Ox 92 92 90 01/31/20 01/31/20 01/31/20 01/31/20 21:30 21:45 22:00 22:12 Pulse 61 65 53 55 Resp 12 14 19 20 B/P (MAP) 136/60 (85) 136/40 (72) 119/63 (81) Pulse Ox 90 90 94 93 O2 Delivery Comfort Best O2 Flow Rate 40.00 FiO2 45 01/31/20 01/31/20 01/31/20 01/31/20 22:12 22:15 22:30 22:45 Pulse 55 54 61 53 Resp 20 14 20 22 B/P (MAP) 136/53 (80) 149/49 (82) 154/71 (98) Pulse Ox 93 93 91 97 01/31/20 01/31/20 01/31/20 01/31/20 23:00 23:00 23:15 23:30 Pulse 53 53 54 Resp 15 11 12 B/P (MAP) 146/59 (88) 131/58 (82) 137/58 (84) Pulse Ox 96 93 97 O2 Delivery Comfort Best O2 Flow Rate 30.00 01/31/20 02/01/20 02/01/20 02/01/20 23:45 00:00 00:15 00:30 Pulse 54 52 52 53 Resp 18 19 22 20 B/P (MAP) 136/78 (97) 134/56 (82) 146/51 (82) 141/56 (84) Pulse Ox 98 96 98 99 02/01/20 02/01/20 02/01/20 02/01/20 00:45 01:00 01:15 01:30 Pulse 53 54 56 66 Resp 16 14 20 24 B/P (MAP) 145/54 (84) 152/46 (81) 145/57 (86) 144/56 (85) Pulse Ox 96 96 99 99 02/01/20 02/01/20 02/01/20 02/01/20 01:45 01:51 02:00 02:15 Pulse 67 56 65 67 Resp 25 20 19 20 B/P (MAP) 149/70 (96) 128/44 (72) 129/56 (80) Pulse Ox 99 99 99 98 02/01/20 02/01/20 02/01/20 02/01/20 02:24 02:30 02:45 02:47 Pulse 71 57 69 Resp 12 14 25 16 B/P (MAP) 159/109 (126) Pulse Ox 96 100 99 O2 Delivery Mask O2 Flow Rate 10.00 02/01/20 02/01/20 02/01/20 02/01/20 02:50 03:00 03:02 03:30 Temp 97.0 Pulse 68 68 68 Resp 15 38 24 B/P (MAP) 125/47 (73) 121/50 (73) Pulse Ox 100 99 100 O2 Delivery Mask O2 Flow Rate 10.00 02/01/20 02/01/20 02/01/20 02/01/20 03:45 04:00 04:01 04:15 Pulse 68 68 68 67 Resp 14 18 15 20 B/P (MAP) 119/62 (81) Pulse Ox 99 99 98 99 02/01/20 02/01/20 02/01/20 02/01/20 04:30 04:45 04:48 05:00 Pulse 67 67 68 69 Resp 22 24 38 20 B/P (MAP) 124/74 (91) Pulse Ox 100 96 99 98 02/01/20 02/01/20 02/01/20 02/01/20 05:15 05:30 05:45 06:00 Pulse 69 71 69 69 Resp 23 20 22 19 Pulse Ox 97 98 97 99 02/01/20 02/01/20 02/01/20 02/01/20 06:02 06:15 07:15 07:30 Pulse 69 70 67 67 Resp 10 15 38 20 B/P (MAP) 134/65 (88) Pulse Ox 97 98 100 99 02/01/20 02/01/20 02/01/20 02/01/20 07:45 08:00 08:00 08:01 Pulse 65 66 67 Resp 8 20 18 B/P (MAP) 146/88 (107) Pulse Ox 99 98 98 O2 Delivery Mask O2 Flow Rate 10.00 02/01/20 02/01/20 02/01/20 02/01/20 08:15 08:30 08:45 09:00 Temp 98.3 Pulse 66 67 66 66 Resp 22 28 19 22 B/P (MAP) 130/63 (85) Pulse Ox 97 99 99 99 02/01/20 02/01/20 02/01/20 02/01/20 09:15 09:20 09:20 09:30 Pulse 72 72 Resp 17 16 B/P (MAP) 134/65 134/65 Pulse Ox 95 92 02/01/20 02/01/20 02/01/20 02/01/20 09:41 09:45 10:00 10:15 Pulse 66 67 72 69 Resp 26 17 12 19 B/P (MAP) 122/44 (70) Pulse Ox 99 98 99 97 O2 Delivery Mask O2 Flow Rate 15.00 FiO2 100 02/01/20 02/01/20 02/01/20 02/01/20 10:30 10:45 11:00 11:15 Pulse 71 69 70 70 Resp 20 22 24 20 B/P (MAP) 120/46 (70) Pulse Ox 97 99 99 100 02/01/20 02/01/20 02/01/20 02/01/20 11:30 11:45 12:00 12:15 Pulse 68 74 71 71 Resp 21 18 22 25 B/P (MAP) 126/75 (92) Pulse Ox 97 98 97 98 02/01/20 02/01/20 02/01/20 02/01/20 12:30 12:30 12:45 13:00 Temp 98.0 Pulse 69 69 72 Resp 24 25 23 B/P (MAP) 131/55 (80) Pulse Ox 98 98 98 O2 Delivery Mask O2 Flow Rate 10.00 02/01/20 02/01/20 02/01/20 02/01/20 13:15 13:30 13:45 13:54 Pulse 55 74 69 68 Resp 23 20 20 21 Pulse Ox 97 90 95 96 O2 Delivery Venturi Mask FiO2 40 02/01/20 02/01/20 02/01/20 02/01/20 13:54 14:00 14:15 14:30 Temp 98.4 Pulse 68 73 69 54 Resp 21 23 24 26 B/P (MAP) 117/49 (71) Pulse Ox 96 97 97 95 02/01/20 02/01/20 15:09 17:49 Pulse 66 Resp 26 Pulse Ox 96 O2 Delivery Venturi Mask Intake and Output 02/01/20 07:00 Intake Total 2959 ml Output Total 3500 ml Balance -541 ml Laboratory Tests Test 01/31/20 08:41 01/31/20 09:06 01/31/20 09:21 01/31/20 09:46 Blood Gas Sample Site RB Blood Gas pH 7.422 Blood Gas PCO2 26.6 mmHg Blood Gas PO2 69.8 mmHg Blood Gas HCO3 16.9 mmol/L Blood Gas Base Excess -5.9 mmol/L Bk Test N/A Arterial Blood Oxygen Saturation 93.6 % Deoxyhemoglobin 6.2 % Carboxyhemoglobin 2.4 % Methemoglobin 0.1 % Total Hemoglobin 13.5 % Total Oxygen Concentration 17.4 % Blood Gas Temperature 37 FiO2 40 % Total Carbon Dioxide 17.8 mmol/L White Blood Count 14.8 10^3/uL Red Blood Count 4.31 10^6/uL Hemoglobin 13.2 g/dL Hematocrit 39.2 % Mean Corpuscular Volume 91.0 fL Mean Corpuscular Hemoglobin 30.6 pg Mean Corpuscular Hemoglobin Concent 33.7 g/dL Red Cell Distribution Width 14.1 % Platelet Count 286 10^3/uL Mean Platelet Volume 10.3 fL Neutrophils (%) (Auto) 88.5 % Lymphocytes (%) (Auto) 6.4 % Monocytes (%) (Auto) 4.5 % Neutrophils # (Auto) 13.1 10^3/uL Lymphocytes # (Auto) 0.95 10^3/uL1 Monocytes # (Auto) 0.7 10^3/uL Absolute Immature Granulocyte (auto 0.05 10^3 u/L Absolute Eosinophils (auto) 0.0 10^3/uL Immature Granulocytes % 0.30 % Eosinophils % 0.1 % Basophils % 0.2 % Basophils # 0.0 10^3/uL Prothrombin Time 10.7 SEC Prothrombin Time INR (Non-Therap) 1.1 Activated Partial Thromboplast Time 22.7 SEC D-Dimer 0.45 mg/L Sodium Level 124 mmol/L Potassium Level 4.0 mmol/L Chloride Level 91.0 mmol/L Carbon Dioxide Level 20.3 mmol/L Anion Gap 16.7 Blood Urea Nitrogen 14 mg/dL Creatinine 1.20 mg/dL Estimated GFR () 54.9 Est GFR (CKD-EPI)(Non-Afr [place]) 45.4 BUN/Creatinine Ratio 11.0 Glucose Level 511 mg/dL Lactic Acid Level 2.0 mmol/L Calcium Level 9.6 mg/dL Total Bilirubin 0.9 mg/dL Aspartate Amino Transf (AST/SGOT) 20 U/L Alanine Aminotransferase (ALT/SGPT) 31 U/L Alkaline Phosphatase 106 U/L Total Creatine Kinase 121 U/L Creatine Kinase MB 3.0 ng/mL Troponin I 0.16 ng/mL Pro-B-Type Natriuretic Peptide 6027 pg/mL Total Protein 7.8 g/dL Albumin 3.3 g/dL Globulin 4.5 Albumin/Globulin Ratio 0.733 Acetone, Semi-Quantitative NEGATIVE Helicobacter pylori Screen NEGATIVE Influenza Type A Antigen NEGATIVE Influenza B Immunofluorescence NEGATIVE Differential Total Cells Counted 100 #CELLS Segmented Neutrophils 88 % Band Neutrophils 3 % Lymphocytes 8 % Monocytes 1 % Differential Comment NORMAL Platelet Estimate ADEQUATE Platelet Morphology NORMAL Blood Morphology Comment NORMAL MORPHOLOGY Test 01/31/20 12:15 01/31/20 18:05 01/31/20 20:32 02/01/20 01:57 Lactic Acid Followup at 2 Hours 1.4 mmol/L Total Creatine Kinase 203 U/L 197 U/L Creatine Kinase MB 3.4 ng/mL 3.1 ng/mL Troponin I 0.21 ng/mL 0.16 ng/mL Activated Partial Thromboplast Time 45.5 SEC 45.0 SEC Test 02/01/20 05:23 02/01/20 07:00 02/01/20 07:54 02/01/20 13:10 Bedside Glucose 318 365 White Blood Count 12.4 10^3/uL Red Blood Count 3.78 10^6/uL Hemoglobin 11.8 g/dL Hematocrit 34.6 % Mean Corpuscular Volume 91.5 fL Mean Corpuscular Hemoglobin 31.2 pg Mean Corpuscular Hemoglobin Concent 34.1 g/dL Red Cell Distribution Width 14.1 % Platelet Count 246 10^3/uL Mean Platelet Volume 10.3 fL Neutrophils (%) (Auto) 90.8 % Lymphocytes (%) (Auto) 4.8 % Monocytes (%) (Auto) 4.1 % Neutrophils # (Auto) 11.3 10^3/uL Lymphocytes # (Auto) 0.60 10^3/uL1 Monocytes # (Auto) 0.5 10^3/uL Absolute Immature Granulocyte (auto 0.02 10^3 u/L Absolute Eosinophils (auto) 0.0 10^3/uL Immature Granulocytes % 0.20 % Eosinophils % 0.0 % Basophils % 0.1 % Basophils # 0.0 10^3/uL Activated Partial Thromboplast Time 41.4 SEC 37.4 SEC Fibrinogen 486 mg/dL D-Dimer 0.60 mg/L Sodium Level 130 mmol/L Potassium Level 3.6 mmol/L Chloride Level 97.0 mmol/L Carbon Dioxide Level 25.1 mmol/L Anion Gap 11.5 Blood Urea Nitrogen 16 mg/dL Creatinine 0.89 mg/dL Estimated GFR () 77.5 Est GFR (CKD-EPI)(Non-Afr [place]) 64.1 BUN/Creatinine Ratio 17.0 Glucose Level 362 mg/dL Hemoglobin A1c 10.8 % Calcium Level 8.8 mg/dL Phosphorus Level 2.9 mg/dL Magnesium Level 1.7 mg/dL Ferritin 181 ng/mL Total Bilirubin 0.5 mg/dL Aspartate Amino Transf (AST/SGOT) 20 U/L Alanine Aminotransferase (ALT/SGPT) 34 U/L Alkaline Phosphatase 83 U/L Lactate Dehydrogenase 158 U/L Total Creatine Kinase 172 U/L Creatine Kinase MB 2.6 ng/mL Troponin I 0.12 ng/mL C-Reactive Protein 10.12 mg/dL Pro-B-Type Natriuretic Peptide 6303 pg/mL Total Protein 7.2 g/dL Albumin 2.9 g/dL Globulin 4.3 Albumin/Globulin Ratio 0.674 Triglycerides Level 108 mg/dL Cholesterol Level 183 mg/dL LDL Cholesterol, Calculated 115.4 VLDL Cholesterol, Calculated 21.6 HDL Cholesterol 46 mg/dL Cholesterol Ratio (LDL/HDL) 2.5 Cholesterol/HDL Ratio 3.036594 Procalcitonin 0.06 ng/mL Thyroid Stimulating Hormone (TSH) 0.204 mIU/mL Test 02/01/20 17:40 02/01/20 17:51 Activated Partial Thromboplast Time 42.4 SEC Bedside Glucose 343 Current Medications Medications (Trade) Dose Ordered Sig/Presley PRN Reason Start Time Stop Time Status Last Admin Acetaminophen (Tylenol) 1,000 mg Q6H PRN pain or fever 01/31/20 16:00 03/01/20 15:59 Albuterol/ Ipratropium (Combivent Respimat 20-100 Mcg) 1 inh RTQ2 PRN SHORTNESS OF BREATH 01/31/20 17:00 03/01/20 16:59 Albuterol/ Ipratropium (Combivent Respimat 20-100 Mcg) 1 inh RTQ4 01/31/20 17:00 03/01/20 16:59 02/01/20 18:44 Amitriptyline HCl (Elavil) 50 mg HS 01/31/20 21:00 03/01/20 20:59 01/31/20 21:07 Aspirin (Aspirin Ec) 81 mg DAILY 02/01/20 09:00 03/02/20 08:59 02/01/20 09:21 Atorvastatin Calcium (Lipitor) 40 mg HS 01/31/20 21:00 03/01/20 20:59 01/31/20 21:08 Azithromycin 500 mg/Sodium Chloride 250 ml @ 175 mls/hr Q24HRS 02/01/20 10:30 03/02/20 10:29 02/01/20 11:18 Budesonide/ Formoterol Fumarate (Symbicort 160-4.5 Mcg Inhaler) 2 inh BID 01/31/20 21:00 03/01/20 20:59 02/01/20 09:00 Ceftriaxone Sodium 1000 mg/ Sodium Chloride 100 ml @ 100 mls/hr Q24HRS 01/31/20 17:30 03/01/20 17:29 02/01/20 17:42 Clopidogrel Bisulfate (Plavix) 75 mg DAILY 02/01/20 09:00 03/02/20 08:59 02/01/20 09:20 Furosemide (Lasix) 40 mg BID 02/01/20 09:00 03/02/20 08:59 02/01/20 09:20 Guaifenesin (Mucinex) 600 mg BID 01/31/20 21:00 03/01/20 20:59 02/01/20 09:21 Heparin Sodium/ Dextrose 500 ml @ 0 mls/hr TITRATE 01/31/20 15:00 03/01/20 14:59 02/01/20 09:05 Insulin Glargine (Lantus) 30 unit ACB 02/02/20 06:30 03/03/20 06:29 Insulin Human Lispro (Humalog) 0-140 0 Units 141-200... ACHS 01/31/20 17:30 03/01/20 17:29 02/01/20 06:10 Lactobacillus Acidophilus (Bacid) 1 each TIDM 01/31/20 18:00 03/01/20 17:59 02/01/20 17:43 Lisinopril (Zestril) 2.5 mg DAILY 02/01/20 09:00 03/02/20 08:59 02/01/20 09:20 Methylprednisolone Sodium Succinate (Solu-Medrol) 40 mg TID 02/01/20 15:00 03/02/20 14:59 02/01/20 15:15 Morphine Sulfate (Morphine Sulfate) 2 mg Q4H PRN PAIN SEVER 01/31/20 16:00 03/01/20 15:59 Morphine Sulfate (Ms Contin) 15 mg BID 01/31/20 21:00 03/01/20 20:59 02/01/20 09:20 Ondansetron HCl (Zofran) 4 mg Q4H PRN NAUSEA / VOMITING 01/31/20 16:00 03/01/20 15:59 Pantoprazole Sodium (Protonix) 40 mg DAILY 02/01/20 09:00 03/02/20 08:59 02/01/20 09:21 Course Sepsis Screening Results: Posi: NEGATIVE Sepsis Qualifier/Stage: NO DEFINITE RISK DATE SEEN BY PHYSICIAN: Feb 04, 2020 TIME SEEN BY PROVIDER: 07:50 Duration or Total Time Spent w: 15 Vitals & review Data Vital Sign - Last 24 Hours 01/31/20 01/31/20 01/31/20 01/31/20 20:45 21:00 21:08 21:15 Pulse 54 52 57 Resp 18 16 16 B/P (MAP) 129/46 (73) 125/46 (72) 136/66 141/57 (85) Pulse Ox 92 92 90 01/31/20 01/31/20 01/31/20 01/31/20 21:30 21:45 22:00 22:12 Pulse 61 65 53 55 Resp 12 14 19 20 B/P (MAP) 136/60 (85) 136/40 (72) 119/63 (81) Pulse Ox 90 90 94 93 O2 Delivery Comfort Best O2 Flow Rate 40.00 FiO2 45 01/31/20 01/31/20 01/31/20 01/31/20 22:12 22:15 22:30 22:45 Pulse 55 54 61 53 Resp 20 14 20 22 B/P (MAP) 136/53 (80) 149/49 (82) 154/71 (98) Pulse Ox 93 93 91 97 01/31/20 01/31/20 01/31/20 01/31/20 23:00 23:00 23:15 23:30 Pulse 53 53 54 Resp 15 11 12 B/P (MAP) 146/59 (88) 131/58 (82) 137/58 (84) Pulse Ox 96 93 97 O2 Delivery Comfort Best O2 Flow Rate 30.00 01/31/20 02/01/20 02/01/20 02/01/20 23:45 00:00 00:15 00:30 Pulse 54 52 52 53 Resp 18 19 22 20 B/P (MAP) 136/78 (97) 134/56 (82) 146/51 (82) 141/56 (84) Pulse Ox 98 96 98 99 02/01/20 02/01/20 02/01/20 02/01/20 00:45 01:00 01:15 01:30 Pulse 53 54 56 66 Resp 16 14 20 24 B/P (MAP) 145/54 (84) 152/46 (81) 145/57 (86) 144/56 (85) Pulse Ox 96 96 99 99 02/01/20 02/01/20 02/01/20 02/01/20 01:45 01:51 02:00 02:15 Pulse 67 56 65 67 Resp 25 20 19 20 B/P (MAP) 149/70 (96) 128/44 (72) 129/56 (80) Pulse Ox 99 99 99 98 02/01/20 02/01/20 02/01/20 02/01/20 02:24 02:30 02:45 02:47 Pulse 71 57 69 Resp 12 14 25 16 B/P (MAP) 159/109 (126) Pulse Ox 96 100 99 O2 Delivery Mask O2 Flow Rate 10.00 02/01/20 02/01/20 02/01/20 02/01/20 02:50 03:00 03:02 03:30 Temp 97.0 Pulse 68 68 68 Resp 15 38 24 B/P (MAP) 125/47 (73) 121/50 (73) Pulse Ox 100 99 100 O2 Delivery Mask O2 Flow Rate 10.00 02/01/20 02/01/20 02/01/20 02/01/20 03:45 04:00 04:01 04:15 Pulse 68 68 68 67 Resp 14 18 15 20 B/P (MAP) 119/62 (81) Pulse Ox 99 99 98 99 02/01/20 02/01/20 02/01/20 02/01/20 04:30 04:45 04:48 05:00 Pulse 67 67 68 69 Resp 22 24 38 20 B/P (MAP) 124/74 (91) Pulse Ox 100 96 99 98 02/01/20 02/01/20 02/01/20 02/01/20 05:15 05:30 05:45 06:00 Pulse 69 71 69 69 Resp 23 20 22 19 Pulse Ox 97 98 97 99 02/01/20 02/01/20 02/01/20 02/01/20 06:02 06:15 07:15 07:30 Pulse 69 70 67 67 Resp 10 15 38 20 B/P (MAP) 134/65 (88) Pulse Ox 97 98 100 99 02/01/20 02/01/20 02/01/20 02/01/20 07:45 08:00 08:00 08:01 Pulse 65 66 67 Resp 8 20 18 B/P (MAP) 146/88 (107) Pulse Ox 99 98 98 O2 Delivery Mask O2 Flow Rate 10.00 02/01/20 02/01/20 02/01/20 02/01/20 08:15 08:30 08:45 09:00 Temp 98.3 Pulse 66 67 66 66 Resp 22 28 19 22 B/P (MAP) 130/63 (85) Pulse Ox 97 99 99 99 02/01/20 02/01/20 02/01/20 02/01/20 09:15 09:20 09:20 09:30 Pulse 72 72 Resp 17 16 B/P (MAP) 134/65 134/65 Pulse Ox 95 92 02/01/20 02/01/20 02/01/20 02/01/20 09:41 09:45 10:00 10:15 Pulse 66 67 72 69 Resp 26 17 12 19 B/P (MAP) 122/44 (70) Pulse Ox 99 98 99 97 O2 Delivery Mask O2 Flow Rate 15.00 FiO2 100 02/01/20 02/01/20 02/01/20 02/01/20 10:30 10:45 11:00 11:15 Pulse 71 69 70 70 Resp 20 22 24 20 B/P (MAP) 120/46 (70) Pulse Ox 97 99 99 100 02/01/20 02/01/20 02/01/20 02/01/20 11:30 11:45 12:00 12:15 Pulse 68 74 71 71 Resp 21 18 22 25 B/P (MAP) 126/75 (92) Pulse Ox 97 98 97 98 02/01/20 02/01/20 02/01/20 02/01/20 12:30 12:30 12:45 13:00 Temp 98.0 Pulse 69 69 72 Resp 24 25 23 B/P (MAP) 131/55 (80) Pulse Ox 98 98 98 O2 Delivery Mask O2 Flow Rate 10.00 02/01/20 02/01/20 02/01/20 02/01/20 13:15 13:30 13:45 13:54 Pulse 55 74 69 68 Resp 23 20 20 21 Pulse Ox 97 90 95 96 O2 Delivery Venturi Mask FiO2 40 02/01/20 02/01/20 02/01/20 02/01/20 13:54 14:00 14:15 14:30 Temp 98.4 Pulse 68 73 69 54 Resp 23 24 26 B/P (MAP) 117/49 (71) Pulse Ox 96 97 97 95 02/01/20 02/01/20 15:09 17:49 Pulse 66 Resp 26 Pulse Ox 96 O2 Delivery Venturi Mask Intake and Output0 02/01/20 07:00 Intake Total 2959 ml Output Total 3500 ml Balance -541 ml Laboratory Tests Test 01/31/20 08:41 01/31/20 09:06 01/31/20 09:21 01/31/20 09:46 Blood Gas Sample Site RB Blood Gas pH 7.422 Blood Gas PCO2 26.6 mmHg Blood Gas PO2 69.8 mmHg Blood Gas HCO3 16.9 mmol/L Blood Gas Base Excess -5.9 mmol/L Bk Test N/A Arterial Blood Oxygen Saturation 93.6 % Deoxyhemoglobin 6.2 % Carboxyhemoglobin 2.4 % Methemoglobin 0.1 % Total Hemoglobin 13.5 % Total Oxygen Concentration 17.4 % Blood Gas Temperature 37 FiO2 40 % Total Carbon Dioxide 17.8 mmol/L White Blood Count 14.8 10^3/uL Red Blood Count 4.31 10^6/uL Hemoglobin 13.2 g/dL Hematocrit 39.2 % Mean Corpuscular Volume 91.0 fL Mean Corpuscular Hemoglobin 30.6 pg Mean Corpuscular Hemoglobin Concent 33.7 g/dL Red Cell Distribution Width 14.1 % Platelet Count 286 10^3/uL Mean Platelet Volume 10.3 fL Neutrophils (%) (Auto) 88.5 % Lymphocytes (%) (Auto) 6.4 % Monocytes (%) (Auto) 4.5 % Neutrophils # (Auto) 13.1 10^3/uL Lymphocytes # (Auto) 0.95 10^3/uL1 Monocytes # (Auto) 0.7 10^3/uL Absolute Immature Granulocyte (auto 0.05 10^3 u/L Absolute Eosinophils (auto) 0.0 10^3/uL Immature Granulocytes % 0.30 % Eosinophils % 0.1 % Basophils % 0.2 % Basophils # 0.0 10^3/uL Prothrombin Time 10.7 SEC Prothrombin Time INR (Non-Therap) 1.1 Activated Partial Thromboplast Time 22.7 SEC D-Dimer 0.45 mg/L Sodium Level 124 mmol/L Potassium Level 4.0 mmol/L Chloride Level 91.0 mmol/L Carbon Dioxide Level 20.3 mmol/L Anion Gap 16.7 Blood Urea Nitrogen 14 mg/dL Creatinine 1.20 mg/dL Estimated GFR () 54.9 Est GFR (CKD-EPI)(Non-Afr [place]) 45.4 BUN/Creatinine Ratio 11.0 Glucose Level 511 mg/dL Lactic Acid Level 2.0 mmol/L Calcium Level 9.6 mg/dL Total Bilirubin 0.9 mg/dL Aspartate Amino Transf (AST/SGOT) 20 U/L Alanine Aminotransferase (ALT/SGPT) 31 U/L Alkaline Phosphatase 106 U/L Total Creatine Kinase 121 U/L Creatine Kinase MB 3.0 ng/mL Troponin I 0.16 ng/mL Pro-B-Type Natriuretic Peptide 6027 pg/mL Total Protein 7.8 g/dL Albumin 3.3 g/dL Globulin 4.5 Albumin/Globulin Ratio 0.733 Acetone, Semi-Quantitative NEGATIVE Helicobacter pylori Screen NEGATIVE Influenza Type A Antigen NEGATIVE Influenza B Immunofluorescence NEGATIVE Differential Total Cells Counted 100 #CELLS Segmented Neutrophils 88 % Band Neutrophils 3 % Lymphocytes 8 % Monocytes 1 % Differential Comment NORMAL Platelet Estimate ADEQUATE Platelet Morphology NORMAL Blood Morphology Comment NORMAL MORPHOLOGY Test 01/31/20 12:15 01/31/20 18:05 01/31/20 20:32 02/01/20 01:57 Lactic Acid Followup at 2 Hours 1.4 mmol/L Total Creatine Kinase 203 U/L 197 U/L Creatine Kinase MB 3.4 ng/mL 3.1 ng/mL Troponin I 0.21 ng/mL 0.16 ng/mL Activated Partial Thromboplast Time 45.5 SEC 45.0 SEC Test 02/01/20 05:23 02/01/20 07:00 02/01/20 07:54 02/01/20 13:10 Bedside Glucose 318 365 White Blood Count 12.4 10^3/uL Red Blood Count 3.78 10^6/uL Hemoglobin 11.8 g/dL Hematocrit 34.6 % Mean Corpuscular Volume 91.5 fL Mean Corpuscular Hemoglobin 31.2 pg Mean Corpuscular Hemoglobin Concent 34.1 g/dL Red Cell Distribution Width 14.1 % Platelet Count 246 10^3/uL Mean Platelet Volume 10.3 fL Neutrophils (%) (Auto) 90.8 % Lymphocytes (%) (Auto) 4.8 % Monocytes (%) (Auto) 4.1 % Neutrophils # (Auto) 11.3 10^3/uL Lymphocytes # (Auto) 0.60 10^3/uL1 Monocytes # (Auto) 0.5 10^3/uL Absolute Immature Granulocyte (auto 0.02 10^3 u/L Absolute Eosinophils (auto) 0.0 10^3/uL Immature Granulocytes % 0.20 % Eosinophils % 0.0 % Basophils % 0.1 % Basophils # 0.0 10^3/uL Activated Partial Thromboplast Time 41.4 SEC 37.4 SEC Fibrinogen 486 mg/dL D-Dimer 0.60 mg/L Sodium Level 130 mmol/L Potassium Level 3.6 mmol/L Chloride Level 97.0 mmol/L Carbon Dioxide Level 25.1 mmol/L Anion Gap 11.5 Blood Urea Nitrogen 16 mg/dL Creatinine 0.89 mg/dL Estimated GFR () 77.5 Est GFR (CKD-EPI)(Non-Afr [place]) 64.1 BUN/Creatinine Ratio 17.0 Glucose Level 362 mg/dL Hemoglobin A1c 10.8 % Calcium Level 8.8 mg/dL Phosphorus Level 2.9 mg/dL Magnesium Level 1.7 mg/dL Ferritin 181 ng/mL Total Bilirubin 0.5 mg/dL Aspartate Amino Transf (AST/SGOT) 20 U/L Alanine Aminotransferase (ALT/SGPT) 34 U/L Alkaline Phosphatase 83 U/L Lactate Dehydrogenase 158 U/L Total Creatine Kinase 172 U/L Creatine Kinase MB 2.6 ng/mL Troponin I 0.12 ng/mL C-Reactive Protein 10.12 mg/dL Pro-B-Type Natriuretic Peptide 6303 pg/mL Total Protein 7.2 g/dL Albumin 2.9 g/dL Globulin 4.3 Albumin/Globulin Ratio 0.674 Triglycerides Level 108 mg/dL Cholesterol Level 183 mg/dL LDL Cholesterol, Calculated 115.4 VLDL Cholesterol, Calculated 21.6 HDL Cholesterol 46 mg/dL Cholesterol Ratio (LDL/HDL) 2.5 Cholesterol/HDL Ratio [id number] Procalcitonin 0.06 ng/mL Thyroid Stimulating Hormone (TSH) 0.204 mIU/mL Test 02/01/20 17:40 02/01/20 17:51 Activated Partial Thromboplast Time 42.4 SEC Bedside Glucose 343 Current Medications Medications (Trade) Dose Ordered Sig/Presley PRN Reason Start Time Stop Time Status Last Admin Acetaminophen (Tylenol) 1,000 mg Q6H PRN pain or fever 01/31/20 16:00 03/01/20 15:59 Albuterol/ Ipratropium (Combivent Respimat 20-100 Mcg) 1 inh RTQ2 PRN SHORTNESS OF BREATH 01/31/20 17:00 03/01/20 16:59 Albuterol/ Ipratropium (Combivent Respimat 20-100 Mcg) 1 inh RTQ4 01/31/20 17:00 03/01/20 16:59 02/01/20 18:44 Amitriptyline HCl (Elavil) 50 mg HS 01/31/20 21:00 03/01/20 20:59 01/31/20 21:07 Aspirin (Aspirin Ec) 81 mg DAILY 02/01/20 09:00 03/02/20 08:59 02/01/20 09:21 Atorvastatin Calcium (Lipitor) 40 mg HS 01/31/20 21:00 03/01/20 20:59 01/31/20 21:08 Azithromycin 500 mg/Sodium Chloride 250 ml @ 175 mls/hr Q24HRS 02/01/20 10:30 03/02/20 10:29 02/01/20 11:18 Budesonide/ Formoterol Fumarate (Symbicort 160-4.5 Mcg Inhaler) 2 inh BID 01/31/20 21:00 03/01/20 20:59 02/01/20 09:00 Ceftriaxone Sodium 1000 mg/ Sodium Chloride 100 ml @ 100 mls/hr Q24HRS 01/31/20 17:30 03/01/20 17:29 02/01/20 17:42 Clopidogrel Bisulfate (Plavix) 75 mg DAILY 02/01/20 09:00 03/02/20 08:59 02/01/20 09:20 Furosemide (Lasix) 40 mg BID 02/01/20 09:00 03/02/20 08:59 02/01/20 09:20 Guaifenesin (Mucinex) 600 mg BID 01/31/20 21:00 03/01/20 20:59 02/01/20 09:21 Heparin Sodium/ Dextrose 500 ml @ 0 mls/hr TITRATE 01/31/20 15:00 03/01/20 14:59 02/01/20 09:05 Insulin Glargine (Lantus) 30 unit ACB 02/02/20 06:30 03/03/20 06:29 Insulin Human Lispro (Humalog) 0-140 0 Units 141-200... ACHS 01/31/20 17:30 03/01/20 17:29 02/01/20 06:10 Lactobacillus Acidophilus (Bacid) 1 each TIDM 01/31/20 18:00 03/01/20 17:59 02/01/20 17:43 Lisinopril (Zestril) 2.5 mg DAILY 02/01/20 09:00 03/02/20 08:59 02/01/20 09:20 Methylprednisolone Sodium Succinate (Solu-Medrol) 40 mg TID 02/01/20 15:00 03/02/20 14:59 02/01/20 15:15 Morphine Sulfate (Morphine Sulfate) 2 mg Q4H PRN PAIN SEVER 01/31/20 16:00 03/01/20 15:59 Morphine Sulfate (Ms Contin) 15 mg BID 01/31/20 21:00 03/01/20 20:59 02/01/20 09:20 Ondansetron HCl (Zofran) 4 mg Q4H PRN NAUSEA / VOMITING 01/31/20 16:00 03/01/20 15:59 Pantoprazole Sodium (Protonix) 40 mg DAILY 02/01/20 09:00 03/02/20 08:59 02/01/20 09:21 LEVEL 1 SEPSIS INFECTION CRITE: None/Not assessed LEVEL 2-SIRS (LIST ALL THAT AP: [id number] Cardiovascular Evidence: Not Assessed or None Hematologic Evidence: None/Not assessed Hepatic Evidence: None/Not assessed Metabolic Evidence: None/Not assessed Neurological Evidence: None/Not assessed Respiratory Evidence: Need for O2 to keep>90%, O2 SAT<90room air Renal Evidence: None/Not assessed O2 Sat by Pulse Oximetry: 96 Oxygen Flow Rate: 2.00 Plan Problems: (1) COPD (chronic obstructive pulmonary disease) Status: Acute ICD Code: J44.9 - Chronic obstructive pulmonary disease, unspecified SNOMED: 90792781 (2) Non-ST elevated myocardial infarction Status: Acute ICD Code: I21.4 - Non-ST elevation (NSTEMI) myocardial infarction SNOMED: 99779908 (3) Sepsis Status: Acute ICD Code: A41.9 - Sepsis, unspecified organism SNOMED: 66601244 (4) PNA (pneumonia) Status: Acute ICD Code: J18.9 - Pneumonia, unspecified organism SNOMED: 438739082 (5) Hyponatremia Status: Resolved ICD Code: E87.1 - Hypo-osmolality and hyponatremia SNOMED: 20246076 (6) Chest pain Status: Resolved ICD Code: R07.9 - Chest pain, unspecified SNOMED: 85389470 (7) CHF (congestive heart failure) Status: Chronic ICD Code: I50.9 - Heart failure, unspecified SNOMED: 09260019 (8) Acute respiratory failure with hypoxemia Status: Resolved ICD Code: J96.01 - Acute respiratory failure with hypoxia SNOMED: 500103430 Discharge Disposition: Stable Problem Qualifiers (1) COPD (chronic obstructive pulmonary disease): COPD type: COPD with acute exacerbation Qualified Codes: J44.1 - Chronic obstructive pulmonary disease with (acute) exacerbation (2) Sepsis: Acute respiratory failure type: with hypoxia Severe sepsis shock status: without septic shock ISAAC CONTI MD Feb 04, 2020 12:33
[2020-02-04 14:28] VITALS: BP 131/74
--- NOTE | 2020-02-04 14:40 | NUR ---
DISCHARGE INSTRUCTIONS GIVEN/TAKEN TO PRIVATE VEHICLE IN STABLE CONDITION
== END 2020-02-04 14:43 | disposition home or self-care (01) | DRG 871 ==
LOC: EDBD 08:23 → ER 08:23 → ICU 10:42 → MS 02-02 21:20
PROVIDERS: ADMIT Family Medicine; ATTEND Student in an Organized Health Care Education/Training Program
DX: A41.9 Sepsis, unspecified organism (principal); I21.4 Non-ST elevation (NSTEMI) myocardial infarction; I50.33 Acute on chronic diastolic (congestive) heart failure; J96.01 Acute respiratory failure with hypoxia; J18.9 Pneumonia, unspecified organism; J44.1 Chronic obstructive pulmonary disease with (acute) exacerbation; E87.1 Hypo-osmolality and hyponatremia; Z20.828 Contact with and (suspected) exposure to other viral communicable diseases; E11.65 Type 2 diabetes mellitus with hyperglycemia; E11.42 Type 2 diabetes mellitus with diabetic polyneuropathy; E11.51 Type 2 diabetes mellitus with diabetic peripheral angiopathy without gangrene; I11.0 Hypertensive heart disease with heart failure; E66.9 Obesity, unspecified; E78.5 Hyperlipidemia, unspecified; F17.200 Nicotine dependence, unspecified, uncomplicated; G89.29 Other chronic pain; I07.1 Rheumatic tricuspid insufficiency; F34.1 Dysthymic disorder; M19.90 Unspecified osteoarthritis, unspecified site; M54.5 Low back pain; Z79.4 Long term (current) use of insulin; Z80.1 Family history of malignant neoplasm of trachea, bronchus and lung; Z82.49 Family history of ischemic heart disease and other diseases of the circulatory system; Z80.3 Family history of malignant neoplasm of breast; Z88.5 Allergy status to narcotic agent; Z79.899 Other long term (current) drug therapy
CPT/HCPCS: 36415; 36600; 71045; 71260; 80053; 80061; 81000; 82010; 82550; 82553; 82570; 82728; 82803; 82948; 83036; 83605; 83615; 83735; 83880; 83935; 84100; 84145; 84300; 84443; 84484; 85025; 85370; 85379; 85610; 85730; 86140; 86677; 87040; 87086; 87635; 87804; 93005; 93306; 94640; 99152; 99153; C1769; C1887; C1894; G0378; J0456; J0696; J1644; J1650; J1815; J1940; J2250; J2920; J2930; J3010; J7030; J7050; J7611; Q9965; C1758

== ENCOUNTER → 2021-12-18 | Outpatient (CLI) | payer MEDICARE ==
[~2021-12-18] MED LIST changes: +AMIT50TA PO; +ATOR40TA PO; +BUDE10.2 IH; +CLOP75TA PO; +GABA100C7 PO; +INSU100V40 SQ; +ISOS1TAB2 PO; +LISI2.5T13 PO; +METO25TA4 PO; +NIFE60TA15 PO; +POTA20TA89 PO; +TIZA2CAP2 PO
[2021-12-18 10:47] LABS: MEAN CORP HGB 31.9 pg (26-34); RED CELL DISTRIBUTION WIDTH 13.4 % (11.5-14.5)
[2021-12-18 11:11] LABS: CARBON DIOXIDE 25.3 mmol/L (20.0-32)
== END | disposition home or self-care (01) ==
LOC: NPLAB 10:24
PROVIDERS: ATTEND Nurse Practitioner Family
DX: E11.65 Type 2 diabetes mellitus with hyperglycemia (principal); E78.5 Hyperlipidemia, unspecified
CPT/HCPCS: 36415; 80053; 80061; 83036; 85027

== ENCOUNTER → 2022-03-20 | Outpatient (CLI) | payer MEDICARE ==
[~2022-03-20] MED LIST changes: -ISOS1TAB2 PO; +ISOS1TAB3 PO
[2022-03-20 15:05] LABS: RED CELL DISTRIBUTION WIDTH 13.8 % (11.5-14.5)
[2022-03-20 15:14] LABS: CARBON DIOXIDE 21.9 mmol/L (20.0-32)
== END | disposition home or self-care (01) ==
LOC: LAB 14:30
PROVIDERS: ATTEND Nurse Practitioner Family
DX: E11.65 Type 2 diabetes mellitus with hyperglycemia (principal); E78.5 Hyperlipidemia, unspecified
CPT/HCPCS: 36415; 80053; 80061; 83036; 85027; 87070; 87077; 87186